=== PATIENT | female | born 1935 | race Caucasian/White ===

== ENCOUNTER → 2016-09-19 | Outpatient (CLI) | payer MEDICARE, OTHER | END | disposition home or self-care (01) | LOC: MW.CHOBGYN 13:16 | PROVIDERS: ATTEND Nurse Practitioner Women's Health | DX: R39.9 Unspecified symptoms and signs involving the genitourinary system (principal); N89.8 Other specified noninflammatory disorders of vagina; R10.32 Left lower quadrant pain; R39.198 Other difficulties with micturition | CPT/HCPCS: 87480; 87510; 87660; 99214 ==

== ENCOUNTER → 2016-10-05 | Outpatient (CLI) | payer MEDICARE, OTHER | LOC: MW.CHOBGYN 13:59 | PROVIDERS: ATTEND Nurse Practitioner Women's Health | DX: R39.9 Unspecified symptoms and signs involving the genitourinary system (principal); N39.0 Urinary tract infection, site not specified | CPT/HCPCS: 81001; G0463 ==

== ENCOUNTER 2016-10-11 19:47 | Emergency (ER) | payer MEDICARE, OTHER ==
[2016-10-11] MEDS ORDERED: Sodium Chloride 0.9% 10 ML Syringe FLUSH PRN (20:02)
[2016-10-11] MEDS ORDERED: Ketorolac 30 MG/ML SDV IVPUSH ONE (20:02)
[2016-10-11] MEDS ORDERED: Sodium Chloride 0.9% 2.5 ML Syringe FLUSH PRN (20:02)
--- NOTE | 2016-10-11 20:06 | EDM.PDOC ---
ED HPI GENERAL MEDICAL PROBLEM - General Chief Complaint: Abdominal Pain Stated Complaint: SHARP ABDOMINAL PAIN Time Seen by Provider: 10/11/16 19:51 - History of Present Illness INITIAL COMMENTS - FREE TEXT/NARRATIVE: HISTORY AND PHYSICAL: History of present illness: The patient is a 81-year-old female who follows her locally in our clinic and presents with a history of a UTI that was initially treated with Cipro and did not resolve and then was started on nitrofurantoin 5 days ago she is currently taking. The patient states she has had no urinary complaints currently but she is having left mid and lower abdominal pain that has been on and off for the last several weeks but worse tonight. According to the patient she normally has regular bowel movements and over the last few weeks she has had more issues with hard stools and irregular bowel movements. She denies any vomiting does not feel more gassy than usual but does feel more bloated. Over the last few weeks the pain has been intermittent crampy but tolerable and then it worsened tonight and she was concerned so she came here. She's not had a fever chills or flank pain no chest pain or shortness of breath and she's been eating and drinking normally. Her last colonoscopy was approximately 2 years ago which revealed some polyps but otherwise normal. The patient denies excessive caffeine use and has not taken any [id number]-boebhce medications for this discomfort or her regular bowel movements. Patient has a significant surgical history of a appendectomy and a paraesophageal hernia repair. Currently in the ED she says the pain is very mild. The pain does not radiate Review of systems: As per history of present illness and below otherwise all systems reviewed and negative. Past medical history: As per history of present illness and as reviewed below otherwise noncontributory. Surgical history: As per history of present illness and as reviewed below otherwise noncontributory. Social history: No reported history of drug or alcohol abuse. Family history: As per history of present illness and as reviewed below otherwise noncontributory. Physical exam: General: Well-developed well-nourished female who is nontoxic and moves easily in the ED and her vital signs have been reviewed by me. HEENT: Atraumatic, normocephalic, negative for conjunctival pallor or scleral icterus, mucous membranes moist, throat clear, neck supple, nontender, trachea midline. Lungs: Clear to auscultation, breath sounds equal bilaterally, chest nontender. Heart: S1S2, regular, negative for clicks, rubs, or JVD. Abdomen: Soft, nondistended, minimal tenderness on deep palpation to the right of the umbilicus and just inferiorly without rebound or guarding. There is no tympany on percussion and bowel sounds are normal active Negative for masses or hepatosplenomegaly. Negative for costovertebral tenderness. Pelvis: Stable nontender. 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: Deferred. Rectal: Deferred. Extremities: Atraumatic, negative for cords or calf pain. Neurovascular unremarkable. Neuro: Awake, alert, oriented. Cranial nerves II through XII unremarkable. Cerebellum unremarkable. Motor and sensory unremarkable throughout. Exam nonfocal. Diagnostics: CBC CMP lactic acid UA CT scan of the abdomen and pelvis Therapeutics: IV fluids Toradol I discussed with the patient and daughter at bedside all testing results and have advised them that I have added a urine culture as it looks like the patient still has a UTI despite the nitrofurantoin that she is almost completed. According to the patient now she has only 3 doses left. I've advised her to increase fiber in her diet and push hydration and I will change her antibiotics tonight and have advised that they call the clinic tomorrow and see if they send a urine culture on the specimen prior to treating her the second round. I've advised him on reasons to return to the ED and need for followup with primary care. Patient has also been advised of the left lower lobe lung nodule any for followup Impression: Left abdominal pain with persistent UTI stable Definitive disposition and diagnosis as appropriate pending reevaluation and review of above. abdominal Pain Score (Numeric/FACES): 4 - Related Data Allergies Allergy/AdvReac Type Severity Reaction Status Date / Time No Known Allergies Allergy Verified 10/11/16 20:03 Home Meds: Home Meds Calcium Carbonate/Vitamin D3 [Caltrate 600+D 1500 MG-400 Units] 1 tab PO BID # 60 tablet 11/25/13 [Rx] Past Medical History - Past Health History Medical/Surgical History: Denies Medical/Surgical History Social & Family History - Tobacco Use Smoking Status *Q: Never Smoker Years of Tobacco use: 1 Used Tobacco, but Quit: No Second Hand Smoke Exposure: No - Alcohol Use Days Per Week of Alcohol Use: 0 Number of Drinks Per Day: 0 Total Drinks Per Week: 0 - Recreational Drug Use Recreational Drug Use: No Drug Use in Last 12 Months: No ED ROS GENERAL - Review of Systems Review Of Systems: ROS reveals no pertinent complaints other than HPI. ED EXAM, GENERAL - Physical Exam Exam: See Below (See dictation) Course - Vital Signs Last Recorded V/S: Last Vital Signs Temp 37.1 C 10/11/16 20:01 Pulse 75 10/11/16 20:01 Resp 16 10/11/16 20:01 BP 130/91 H 10/11/16 20:01 Pulse Ox 97 10/11/16 20:01 - Orders/Labs/Meds Orders: Active Orders 24 hr Category Date Time Status Abdomen Pelvis w Cont [CT] Stat Exams 10/11/16 20:02 Taken CULTURE URINE [RM] Stat Lab 10/11/16 20:25 Received Sodium Chloride 0.9% [Normal Saline] 500 ml Med 10/11/16 20:15 Active IV STAT Sodium Chloride 0.9% [Saline Flush] Med 10/11/16 20:02 Active 10 ml FLUSH ASDIRECTED PRN Sodium Chloride 0.9% [Saline Flush] Med 10/11/16 20:02 Active 2.5 ml FLUSH ASDIRECTED PRN Saline Lock Insert [OM.PC] Stat Oth 10/11/16 20:01 Ordered Medication Orders Sodium Chloride (Normal Saline) 500 mls @ 999 mls/hr IV STAT CARLY Last Admin: 10/11/16 20:33 Dose: 999 mls/hr Sodium Chloride (Saline Flush) 10 ml FLUSH ASDIRECTED PRN PRN Reason: Keep Vein Open Sodium Chloride (Saline Flush) 2.5 ml FLUSH ASDIRECTED PRN PRN Reason: Keep Vein Open Labs: Laboratory Tests 10/11/16 10/11/16 10/11/16 Range/Units 20:19 20:19 20:19 WBC 7.51 (4.0-11.0) K/uL RBC 3.68 L (4.30-5.90) M/uL Hgb 12.1 (12.0-16.0) g/dL Hct 35.7 L (36.0-46.0) % MCV 97.0 (80.0-98.0) fL MCH 32.9 H (27.0-32.0) pg MCHC 33.9 (31.0-37.0) g/dL RDW Std Deviation 49.9 (28.0-62.0) fl RDW Coeff of Marimar 14 (11.0-15.0) % Plt Count 367 (150-400) K/uL MPV 10.20 (7.40-12.00) fL Neut % (Auto) 56.8 (48.0-80.0) % Lymph % (Auto) 34.4 (16.0-40.0) % Pine % (Auto) 7.7 (0.0-15.0) % Eos % (Auto) 0.8 (0.0-7.0) % Baso % (Auto) 0.3 (0.0-1.5) % Neut # 4.3 (1.4-5.7) K/uL Lymph # 2.6 H (0.6-2.4) K/uL Pine # 0.6 (0.0-0.8) K/uL Eos # 0.1 (0.0-0.7) K/uL Baso # 0.0 (0.0-0.1) K/uL Nucleated RBC % 0.0 /100WBC Nucleated RBCs # 0 K/uL Lactate 1.7 (0.20-2.00) mmol/L Sodium 133 L (136-146) mmol/L Potassium 3.4 L (3.5-5.1) mmol/L Chloride 99 (98-110) mmol/L Carbon Dioxide 23 (21-31) mmol/L BUN 9 (6.0-23.0) mg/dL Creatinine 0.7 (0.6-1.5) mg/dL Est Cr Clr Drug Dosing 56.27 mL/min Estimated GFR (MDRD) > 60.0 ml/min Glucose 130 H (60-110) mg/dL Calcium 9.4 (8.8-10.8) mg/dL Total Bilirubin 0.6 (0.1-1.5) mg/dL AST 19 (5-40) IU/L ALT 16 (8-54) IU/L Alkaline Phosphatase 50 (40-150) Total Protein 6.6 (6.0-8.0) g/dL Albumin 4.0 (3.4-4.8) g/dL Globulin 2.6 (2.0-3.5) g/dL Albumin/Globulin Ratio 1.5 (1.3-2.8) Urine Color Urine Appearance Urine pH (5.0-8.0) Ur Specific [place] (1.001-1.035) Urine Protein (NEGATIVE) mg/dL Urine Glucose (UA) (NEGATIVE) mg/dL Urine Ketones (NEGATIVE) mg/dL Urine Occult Blood (NEGATIVE) Urine Nitrite (NEGATIVE) Urine Bilirubin (NEGATIVE) Urine Urobilinogen (<2.0) EU/dL Ur Leukocyte Esterase (NEGATIVE) Urine RBC (0-2/HPF) Urine WBC (0-5/HPF) Ur Epithelial Cells (NONE-FEW) Urine Bacteria (NEGATIVE) 10/11/16 Range/Units 20:25 WBC (4.0-11.0) K/uL RBC (4.30-5.90) M/uL Hgb (12.0-16.0) g/dL Hct (36.0-46.0) % MCV (80.0-98.0) fL MCH (27.0-32.0) pg MCHC (31.0-37.0) g/dL RDW Std Deviation (28.0-62.0) fl RDW Coeff of Marimar (11.0-15.0) % Plt Count (150-400) K/uL MPV (7.40-12.00) fL Neut % (Auto) (48.0-80.0) % Lymph % (Auto) (16.0-40.0) % Pine % (Auto) (0.0-15.0) % Eos % (Auto) (0.0-7.0) % Baso % (Auto) (0.0-1.5) % Neut # (1.4-5.7) K/uL Lymph # (0.6-2.4) K/uL Pine # (0.0-0.8) K/uL Eos # (0.0-0.7) K/uL Baso # (0.0-0.1) K/uL Nucleated RBC % /100WBC Nucleated RBCs # K/uL Lactate (0.20-2.00) mmol/L Sodium (136-146) mmol/L Potassium (3.5-5.1) mmol/L Chloride (98-110) mmol/L Carbon Dioxide (21-31) mmol/L BUN (6.0-23.0) mg/dL Creatinine (0.6-1.5) mg/dL Est Cr Clr Drug Dosing mL/min Estimated GFR (MDRD) ml/min Glucose (60-110) mg/dL Calcium (8.8-10.8) mg/dL Total Bilirubin (0.1-1.5) mg/dL AST (5-40) IU/L ALT (8-54) IU/L Alkaline Phosphatase (40-150) Total Protein (6.0-8.0) g/dL Albumin (3.4-4.8) g/dL Globulin (2.0-3.5) g/dL Albumin/Globulin Ratio (1.3-2.8) Urine Color YELLOW Urine Appearance SLT CLOUDY Urine pH 5.5 (5.0-8.0) Ur Specific [place] <= 1.005 (1.001-1.035) Urine Protein NEGATIVE (NEGATIVE) mg/dL Urine Glucose (UA) NEGATIVE (NEGATIVE) mg/dL Urine Ketones TRACE H (NEGATIVE) mg/dL Urine Occult Blood SMALL H (NEGATIVE) Urine Nitrite NEGATIVE (NEGATIVE) Urine Bilirubin NEGATIVE (NEGATIVE) Urine Urobilinogen 0.2 (<2.0) EU/dL Ur Leukocyte Esterase LARGE (NEGATIVE) Urine RBC 0-2 (0-2/HPF) Urine WBC 3-6 (0-5/HPF) Ur Epithelial Cells FEW (NONE-FEW) Urine Bacteria 1+ H (NEGATIVE) Meds: Medications Generic Name Dose Route Start Last Admin Trade Name Freq PRN Reason Stop Dose Admin Sodium Chloride 500 mls @ 999 mls/hr 10/11/16 20:15 10/11/16 20:33 Normal Saline IV 999 mls/hr STAT CARLY Administration Sodium Chloride 10 ml 10/11/16 20:02 Saline Flush FLUSH ASDIRECTED PRN Keep Vein Open Sodium Chloride 2.5 ml 10/11/16 20:02 Saline Flush FLUSH ASDIRECTED PRN Keep Vein Open Discontinued Medications Generic Name Dose Route Start Last Admin Trade Name Freq PRN Reason Stop Dose Admin Iopamidol 100 ml 10/11/16 21:17 10/11/16 21:18 Isovue Multipack-370 (76%) IVPUSH 10/11/16 21:18 100 ml ONETIME STA Administration Ketorolac Tromethamine 15 mg 10/11/16 20:02 10/11/16 20:33 Toradol IVPUSH 10/11/16 20:03 15 mg ONETIME ONE Administration Departure - Departure Time of Disposition: 22:00 Disposition: Home, Self-Care 01 Condition: good Clinical Impression: Abdominal pain Qualifiers: Abdominal location: left lower quadrant Qualified Code(s): R10.32 - Left lower quadrant pain UTI (urinary tract infection) Qualifiers: Urinary tract infection type: site unspecified Hematuria presence: without hematuria Qualified Code(s): N39.0 - Urinary tract infection, site not specified Referrals: PCP,None [Primary Care Provider] - Forms: ED Department Discharge Additional Instructions: The following information is given to patients seen in the emergency department who are being discharged to home. This information is to outline your options for follow-up care. We provide all patients seen in our emergency department with a follow-up referral. The need for follow-up, as well as the timing and circumstances, are variable depending upon the specifics of your emergency department visit. If you don't have a primary care physician on staff, we will provide you with a referral. We always advise you to contact your personal physician following an emergency department visit to inform them of the circumstance of the visit and for follow-up with them and/or the need for any referrals to a consulting specialist. The emergency department will also refer you to a specialist when appropriate. This referral assures that you have the opportunity for followup care with a specialist. All of these measure are taken in an effort to provide you with optimal care, which includes your followup. Under all circumstances we always encourage you to contact your private physician who remains a resource for coordinating your care. When calling for followup care, please make the office aware that this follow-up is from your recent emergency room visit. If for any reason you are refused follow-up, please contact the [facility] emergency department at and ask to speak to the emergency department charge nurse. [facility] Primary care- Internal Medicine and Family [address] [address] Please contact the clinic to discuss if they have sent a urine culture on your urine in the past and if not please fill the prescription you have been given tonight and start the antibiotic. Please push fiber in her diet and hydration and return to ER as needed and as discussed. Please followup in the clinic as well. - My Orders Last 24 Hours: My Active Orders 10/11/16 20:01 Saline Lock Insert [OM.PC] Stat 10/11/16 20:02 Abdomen Pelvis w Cont [CT] Stat Sodium Chloride 0.9% [Saline Flush] 10 ml FLUSH ASDIRECTED PRN Sodium Chloride 0.9% [Saline Flush] 2.5 ml FLUSH ASDIRECTED PRN 10/11/16 20:15 Sodium Chloride 0.9% [Normal Saline] 500 ml IV STAT 10/11/16 20:25 CULTURE URINE [RM] Stat - Assessment/Plan Last 24 Hours: My Active Orders 10/11/16 20:01 Saline Lock Insert [OM.PC] Stat 10/11/16 20:02 Abdomen Pelvis w Cont [CT] Stat Sodium Chloride 0.9% [Saline Flush] 10 ml FLUSH ASDIRECTED PRN Sodium Chloride 0.9% [Saline Flush] 2.5 ml FLUSH ASDIRECTED PRN 10/11/16 20:15 Sodium Chloride 0.9% [Normal Saline] 500 ml IV STAT 10/11/16 20:25 CULTURE URINE [RM] Stat
[2016-10-11] MEDS ORDERED: Sodium Chloride 0.9% 500 ML IV SCH (20:15)
[2016-10-11 20:45] LABS: CHLORIDE,CL 99 mmol/L (98-110); SODIUM,NA 133 mmol/L (136-146)
[2016-10-11] MEDS ORDERED: Iopamidol 755 MG/ML 500 ML Multipack Bottle IVPUSH STA (21:17)
[2016-10-11 23:42] VITALS: BP 125/58
--- NOTE | 2016-10-12 18:35 | CT ---
EXAM DATE: 10/11/16 PATIENT'S AGE: 81 Patient: KADE MANCUSO Facility: [place], [place] Site . Site : [id number] Study: CT Abdomen/Pelvis [id number]/15/2017 9:17:40 PM Ordering Physician: Char Moore Final Report: INDICATION: Abdominal pain TECHNIQUE: CT abdomen and pelvis acquired with IV contrast. COMPARISON: June 08, 2014 FINDINGS: Lower chest: Cardiomegaly. Small hiatal hernia. Stable 0.4 cm left lower lobe subpleural nodule, best seen on image 19 series 601. Liver: Subcentimeter hypodensity within the right hepatic lobe, too small to accurately characterize. Spleen: Unremarkable. Pancreas: Unremarkable. Gallbladder and bile ducts: Status post cholecystectomy. Adrenal glands: Stable thickening of the left adrenal gland. Kidneys: Simple cyst lower pole left kidney. GI tract: Colonic diverticulosis. The appendix is not visualized but no inflammatory changes are seen in the right lower quadrant. Vascular structures: Moderate atherosclerotic changes. Lymph nodes: Unremarkable. Miscellaneous: Unremarkable. No free air or significant free fluid. Pelvic Organs: Unremarkable. Bones: Left hip arthroplasty. Remote fractures of the left inferior and superior pubic rami. No acute fracture identified. IMPRESSION: 1. No acute intra-abdominal process identified. 2. Small hiatal hernia. 3. Colonic diverticulosis. 4. Status post cholecystectomy and a left hip arthroplasty. 5. Stable thickening of the left adrenal gland. 6. Cardiomegaly. 7. Left lower lobe subpleural nodule. Followup per Fleischner society guidelines recommended, as listed below. Fleischner Society Guidelines: Nodule Size (mm)*: Less than or equal to 4 Low Risk Patient1: No follow-up needed3 High Risk Patient2: Follow-up CT at 12 months; if unchanged, no further follow- up4 Nodule Size (mm)*: Greater than 4 - 6 Low Risk Patient1: Follow-up CT at 12 months; if unchanged, no further follow- up4 High Risk Patient2: Initial follow-up CT at 6-12 months then at 18-24 months if no change4 Nodule Size (mm)*: Greater than 6 - 8 Low Risk Patient1: Initial follow-up CT at 6-12 months then at 18-24 months if no change High Risk Patient2: Initial CT at 3-6 months then at 9-12 and 24 months if no change Nodule Size (mm)*: Greater than 8 Low Risk Patient1: Follow-up CT at around 3, 9 and 24 months, dynamic contrast- enhanced CT, PET and/or biopsy High Risk Patient2: Same as for low risk patient 4 Note: Newly detected indeterminate nodule in persons 35 years of age or older. * Average length and width. 1 Minimal or absent history of smoking and of other known risk factors. 2 History of smoking or of other known risk factors. 3 The risk of malignancy in this category (Less than 1%) is substantially less than that in a baseline CT scan of an asymptomatic smoker. 4 Non-solid (ground-glass) or partly solid nodules may require longer follow-up to exclude indolent adenocarcinoma. Dictated by Vashti Barragan MD @ Oct 11 2016 9:35PM (Electronic Signature) Report Signed by Proxy and Original Signed Document filed in the Medical Record. [facility]
== END 2016-10-11 22:21 | disposition home or self-care (01) ==
LOC: MW.ED 19:47
DX: N39.0 Urinary tract infection, site not specified (principal)
CPT/HCPCS: 36415; 74177; 80053; 81001; 83605; 85025; 87086; 99284; J1885; J7040; Q9967; 96374

== ENCOUNTER → 2016-10-16 | Outpatient (CLI) | payer MEDICARE, OTHER | END | disposition home or self-care (01) | LOC: MW.CHFP 12:51 | PROVIDERS: ATTEND Emergency Medicine | DX: N39.0 Urinary tract infection, site not specified (principal) | CPT/HCPCS: 81001; 87086 ==

== ENCOUNTER 2016-10-21 13:05 | Emergency (ER) | payer MEDICARE, OTHER ==
--- NOTE | 2016-10-21 14:41 | EDM.PDOC ---
<Nadja Valiente - Last Filed: 10/21/16 14:36> ED HPI GI/ABDOMINAL - General Chief Complaint: Gastrointestinal Problem Stated Complaint: POSSIBLE DIARRHEA Time Seen by Provider: 10/21/16 14:01 Source of Information: Reports: Patient History Limitations: Reports: No limitations - History of Present Illness INITIAL COMMENTS - FREE TEXT/NARRATIVE: Loli is a 81 year old female who presents to the ED today with complaints of diarrhea x3-4 days. She also voices lack of appetite. Patient denies nausea or vomiting, denies fever/chills. Patient voices she has been on antibiotics therapy for the last 3 weeks with 3 different antibiotic therapy for UTI (Cipro , Nitrofuratin and Cefuroxim), but states she stopped them on 10/19/16, and UTI is resolved according to her PCP. She denies blood in her stool. Tried OTC immodium 2 tabs on Sunday one time without resolution and tried Pepto- bismuth on which helped "settle her stomach some" Patient voices between 4-10 episodes of loose runny stool that is more frequent in the morning and gets better as day progresses. On first night she was up in the middle of the night to have some episodes of loose stools, she was able to sleep through last night without having an episode of diarrhea. Timing/Duration: Reports: Day(s): (3-4days of diarrhea) Associated Symptoms (-Female): Reports: diarrhea. Denies: bloody stools, fever/chills, nausea/vomiting - Related Data Allergies/ADRs: Allergies Allergy/AdvReac Type Severity Reaction Status Date / Time No Known Allergies Allergy Verified 10/21/16 13:21 Home Meds: Home Meds Calcium Carbonate/Vitamin D3 [Caltrate 600+D 1500 MG-400 Units] 1 tab PO BID # 60 tablet 11/25/13 [Rx] Past Medical History - Past Health History Medical/Surgical History: Denies Medical/Surgical History HEENT History: Reports: Cataract, Impaired vision Cardiovascular History: Reports: None Respiratory History: Reports: None Gastrointestinal History: Reports: None 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 History: Reports: None 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: Neurological History: Reports: None Psychiatric History: Reports: None Endocrine/Metabolic History: Reports: None Hematologic History: Reports: None Immunologic History: Reports: None Oncologic (Cancer) History: Reports: None - Infectious Disease History Infectious Disease History: Reports: Chicken pox, Measles, Mumps - Past Surgical History Head Surgeries/Procedures: Reports: None HEENT Surgical History: Reports: Cataract surgery GI Surgical History: Reports: Appendectomy, Other (see below) Other GI Surgeries/Procedures: Esophageal hernal Female Surgical History: Reports: section Musculoskeletal Surgical History: Reports: Arthroscopic procedure, Hip replacement Other Musculoskeletal Surgeries/Procedures:: femur fx Social & Family History - Family History Family Medical History: Noncontributory - Tobacco Use Smoking Status *Q: Never Smoker Years of Tobacco use: 1 Used Tobacco, but Quit: No Second Hand Smoke Exposure: No - Caffeine Use Caffeine Use: Reports: Tea - Alcohol Use Days Per Week of Alcohol Use: 0 Number of Drinks Per Day: 0 Total Drinks Per Week: 0 - Recreational Drug Use Recreational Drug Use: No Drug Use in Last 12 Months: No ED ROS GENERAL - Review of Systems Review Of Systems: ROS reveals no pertinent complaints other than HPI. ED EXAM, GI/ABD - Physical Exam Exam: See Below Text/Narrative:: 81 year old female in no acute distress, and answers questions appropriately Exam Limited By: No limitations General Appearance: alert, WD/WN, no apparent distress Ears: normal external exam Nose: normal inspection Throat/Mouth: Normal inspection, Normal lips, Normal teeth, Normal gums, Normal oropharynx, Normal voice, No airway compromise Head: atraumatic, normocephalic Neck: normal inspection, supple, non-tender, full range of motion Respiratory/Chest: no respiratory distress, lungs clear, normal breath sounds, no accessory muscle use, chest non-tender Cardiovascular: regular rate, rhythm GI/Abdominal: normal bowel sounds, soft, non tender, no organomegaly, no distention, no mass (Female) Exam: Deferred Rectal (Female) Exam: Deferred Back Exam: normal inspection Extremities: normal inspection, normal capillary refill Neurological: alert, oriented, CN II-XII intact, normal cognition, normal gait, normal reflexes, no motor/sensory deficits Psychiatric: normal affect, normal mood Skin Exam: Warm, Dry, Intact, Normal color, No rash Lymphatic: no adenopathy Course - Vital Signs Last Recorded V/S: Last Vital Signs Temp 37.2 C 10/21/16 13:21 Pulse 79 10/21/16 13:21 Resp 18 10/21/16 13:21 BP 165/69 H 10/21/16 13:21 Pulse Ox 98 10/21/16 13:21 - Orders/Labs/Meds Orders: Active Orders 24 hr Category Date Time Status CULTURE STOOL + CAMPY+SHIGATOX [RM] Stat Lab 10/21/16 16:00 Results Labs: Laboratory Tests 10/21/16 10/21/16 Range/Units 15:04 15:04 WBC 13.88 H (4.0-11.0) K/uL RBC 3.78 L (4.30-5.90) M/uL Hgb 12.6 (12.0-16.0) g/dL Hct 36.7 (36.0-46.0) % MCV 97.1 (80.0-98.0) fL MCH 33.3 H (27.0-32.0) pg MCHC 34.3 (31.0-37.0) g/dL RDW Std Deviation 50.7 (28.0-62.0) fl RDW Coeff of Marimar 14 (11.0-15.0) % Plt Count 373 (150-400) K/uL MPV 9.80 (7.40-12.00) fL Neut % (Auto) 84.7 H (48.0-80.0) % Lymph % (Auto) 8.1 L (16.0-40.0) % Colbert % (Auto) 7.0 (0.0-15.0) % Eos % (Auto) 0.1 (0.0-7.0) % Baso % (Auto) 0.1 (0.0-1.5) % Neut # (Auto) 11.8 H (1.4-5.7) K/uL Lymph # (Auto) 1.1 (0.6-2.4) K/uL Colbert # (Auto) 1.0 H (0.0-0.8) K/uL Eos # (Auto) 0.0 (0.0-0.7) K/uL Baso # (Auto) 0.0 (0.0-0.1) K/uL Nucleated RBC % 0.0 /100WBC Nucleated RBCs # 0 K/uL Sodium 131 L (136-146) mmol/L Potassium 3.1 L (3.5-5.1) mmol/L Chloride 98 (98-110) mmol/L Carbon Dioxide 18 L (21-31) mmol/L BUN 7 (6.0-23.0) mg/dL Creatinine 0.7 (0.6-1.5) mg/dL Est Cr Clr Drug Dosing 56.27 mL/min Estimated GFR (MDRD) > 60.0 ml/min Glucose 109 (60-110) mg/dL Calcium 9.3 (8.8-10.8) mg/dL Total Bilirubin 0.9 (0.1-1.5) mg/dL AST 19 (5-40) IU/L ALT 14 (8-54) IU/L Alkaline Phosphatase 58 (40-150) Total Protein 6.5 (6.0-8.0) g/dL Albumin 3.7 (3.4-4.8) g/dL Globulin 2.8 (2.0-3.5) g/dL Albumin/Globulin Ratio 1.3 (1.3-2.8) Meds: Medications Discontinued Medications Generic Name Dose Route Start Last Admin Trade Name Freq PRN Reason Stop Dose Admin Potassium Chloride 40 meq 10/21/16 16:01 10/21/16 16:06 Klor-Con M20 PO 10/21/16 16:02 40 meq ONETIME ONE Administration Departure - Departure Disposition: Home, Self-Care 01 Clinical Impression: C. difficile diarrhea Forms: ED Department Discharge Additional Instructions: The following information is given to patients seen in the emergency department who are being discharged to home. This information is to outline your options for follow-up care. We provide all patients seen in our emergency department with a follow-up referral. The need for follow-up, as well as the timing and circumstances, are variable depending upon the specifics of your emergency department visit. If you don't have a primary care physician on staff, we will provide you with a referral. We always advise you to contact your personal physician following an emergency department visit to inform them of the circumstance of the visit and for follow-up with them and/or the need for any referrals to a consulting specialist. The emergency department will also refer you to a specialist when appropriate. This referral assures that you have the opportunity for followup care with a specialist. All of these measure are taken in an effort to provide you with optimal care, which includes your followup. Under all circumstances we always encourage you to contact your private physician who remains a resource for coordinating your care. When calling for followup care, please make the office aware that this follow-up is from your recent emergency room visit. If for any reason you are refused follow-up, please contact the [facility] emergency department at and ask to speak to the emergency department charge nurse. [facility] Primary care- Internal Medicine and Family [address] [address] Please push potassium rich foods such as bananas whole grains and vegetables. Take your new prescription Flagyl as directed and please call and followup with your provider Dr. Garcia prior to finishing her prescription so that you can have your stool reevaluated for further medication and treatment. Please return to ER as needed and as discussed. - My Orders Last 24 Hours: My Active Orders 10/21/16 16:00 CULTURE STOOL + CAMPY+SHIGATOX [RM] Stat - Assessment/Plan Last 24 Hours: My Active Orders 10/21/16 16:00 CULTURE STOOL + CAMPY+SHIGATOX [RM] Stat <Teresa Pardo - Last Filed: 10/21/16 16:46> ED HPI GI/ABDOMINAL - History of Present Illness INITIAL COMMENTS - FREE TEXT/NARRATIVE: This is Dr. Pardo dictating an addendum note as a supervising physician on this case. I saw this patient on October 11 for abdominal pain and she was evaluated with labs and a CAT scan. That days results and notes were reviewed by me. On that visit her testing results were relatively negative except a positive UA and she was on nitrofurantoin at that time and had been on Cipro previously. I switched her to Keflex and send a urine culture and those test results we followed up by her primary Dr. Garcia on October 16 . At that time he buys her to stop the antibiotics. The next day she started having diarrhea as described above which is not black or bloody. Patient denies any abdominal pain currently and has had no nausea vomiting fevers or chills but has not had much of an appetite and has not been eating very much as a result of that. Patient has taken no [id number] medications. About personal of valuation of her she looks better overall clinically and has no tenderness on palpation of the abdomen and moist oral mucosa. Because of her age we will repeat the CBC and CMP and I advised a bruise like to get a stool sample for C. difficile and culture for Campylobacter and Shigella. She states she may not be able to give a sample and if she is unable to during the course of this ER visit we will give her the tools and prescription to collect at home and bring it to the lab for testing to be followed by her primary. The patient states that her urination has improved. Patient is comfortable with our care plan is in place. 1600: Potassium is 3.1 and it was 3.4 every day when I saw her so we will give her 40 mEq of KCl. I will advise her to increase whole grains, leafy vegetables and bananas in her diet. The patient was able to produce a stool sample here in the ED so we are currently awaiting the results for C. difficile and quick look culture She was informed of her C. difficile + testing and will be given Flagyl 250 mg by mouth 4 times a day for 10 days. I've advised her that she does need to followup with Dr. Garcia prior to finishing the prescription to [facility] the test is negative or positive because if it remains positive she will need more treatment. She is aware of this plan. Impression: C Diff + Diarrhea Course - Orders/Labs/Meds Labs: Laboratory Tests 10/21/16 10/21/16 Range/Units 15:04 15:04 WBC 13.88 H (4.0-11.0) K/uL RBC 3.78 L (4.30-5.90) M/uL Hgb 12.6 (12.0-16.0) g/dL Hct 36.7 (36.0-46.0) % MCV 97.1 (80.0-98.0) fL MCH 33.3 H (27.0-32.0) pg MCHC 34.3 (31.0-37.0) g/dL RDW Std Deviation 50.7 (28.0-62.0) fl RDW Coeff of Marimar 14 (11.0-15.0) % Plt Count 373 (150-400) K/uL MPV 9.80 (7.40-12.00) fL Neut % (Auto) 84.7 H (48.0-80.0) % Lymph % (Auto) 8.1 L (16.0-40.0) % Colbert % (Auto) 7.0 (0.0-15.0) % Eos % (Auto) 0.1 (0.0-7.0) % Baso % (Auto) 0.1 (0.0-1.5) % Neut # (Auto) 11.8 H (1.4-5.7) K/uL Lymph # (Auto) 1.1 (0.6-2.4) K/uL Colbert # (Auto) 1.0 H (0.0-0.8) K/uL Eos # (Auto) 0.0 (0.0-0.7) K/uL Baso # (Auto) 0.0 (0.0-0.1) K/uL Nucleated RBC % 0.0 /100WBC Nucleated RBCs # 0 K/uL Sodium 131 L (136-146) mmol/L Potassium 3.1 L (3.5-5.1) mmol/L Chloride 98 (98-110) mmol/L Carbon Dioxide 18 L (21-31) mmol/L BUN 7 (6.0-23.0) mg/dL Creatinine 0.7 (0.6-1.5) mg/dL Est Cr Clr Drug Dosing 56.27 mL/min Estimated GFR (MDRD) > 60.0 ml/min Glucose 109 (60-110) mg/dL Calcium 9.3 (8.8-10.8) mg/dL Total Bilirubin 0.9 (0.1-1.5) mg/dL AST 19 (5-40) IU/L ALT 14 (8-54) IU/L Alkaline Phosphatase 58 (40-150) Total Protein 6.5 (6.0-8.0) g/dL Albumin 3.7 (3.4-4.8) g/dL Globulin 2.8 (2.0-3.5) g/dL Albumin/Globulin Ratio 1.3 (1.3-2.8) Meds: Medications Discontinued Medications Generic Name Dose Route Start Last Admin Trade Name Freq PRN Reason Stop Dose Admin Potassium Chloride 40 meq 10/21/16 16:01 10/21/16 16:06 Klor-Con M20 PO 10/21/16 16:02 40 meq ONETIME ONE Administration Departure - Departure Time of Disposition: 16:45 Condition: good
[2016-10-21 15:46] LABS: CHLORIDE,CL 98 mmol/L (98-110); SODIUM,NA 131 mmol/L (136-146)
[2016-10-21] MEDS ORDERED: Potassium Chloride 20 MEQ Tab.ER PO ONE (16:01)
[2016-10-21 17:12] VITALS: BP 150/78
== END 2016-10-21 17:10 | disposition home or self-care (01) ==
LOC: MW.ED 13:05
DX: A04.7 Enterocolitis due to Clostridium difficile (principal); Z98.49 Cataract extraction status, unspecified eye; Z96.649 Presence of unspecified artificial hip joint; Z98.890 Other specified postprocedural states; Z90.49 Acquired absence of other specified parts of digestive tract
CPT/HCPCS: 36415; 80053; 85025; 87046; 87324; 87899; 99284; A9270; 99283

== ENCOUNTER → 2016-11-02 | Outpatient (CLI) | payer MEDICARE, OTHER | LOC: MW.CHFP 08:00 | PROVIDERS: ATTEND Emergency Medicine | DX: A04.7 Enterocolitis due to Clostridium difficile (principal); Z23 Encounter for immunization; M81.0 Age-related osteoporosis without current pathological fracture | CPT/HCPCS: 90732; G0009; G0463 ==

== ENCOUNTER 2016-11-11 14:15 | Emergency (ER) | payer MEDICARE, OTHER ==
--- NOTE | 2016-11-11 15:16 | EDM.PDOC ---
ED HPI Skin/Rash - General Chief Complaint: Neurological Problem Stated Complaint: SHINGLES Time Seen by Provider: 11/11/16 14:18 Source: Reports: Patient History Limitations: Reports: No limitations - History of Present Illness INITIAL COMMENTS - FREE TEXT/NARRATIVE: History of present illness: [] She had shingles approximately 10 years ago and couple days ago patient started feeling a burning tingling sensation on her left hip where she had shingles prior. Patient now presents with a faint rash is concerned that the shingles has returned. She denies any fevers, chills, nausea or vomiting Review of systems: As per history of present illness and below otherwise all systems reviewed and negative. Past medical history: As per history of present illness and as reviewed below otherwise noncontributory. Surgical history: As per history of present illness and as reviewed below otherwise noncontributory. Social history: No reported history of drug or alcohol abuse. Family history: As per history of present illness and as reviewed below otherwise noncontributory. Physical exam: General: Well developed, well nourished in NAD HEENT: Atraumatic, normocephalic, pupils reactive, negative for conjunctival pallor or scleral icterus, mucous membranes moist, throat clear, neck supple, nontender, trachea midline. Lungs: Clear to auscultation, breath sounds equal bilaterally, chest nontender. Heart: S1S2, regular, negative for clicks, rubs, or JVD. Abdomen: Soft, nondistended, nontender. Negative for masses or hepatosplenomegaly. Negative for costovertebral tenderness. Pelvis: Stable nontender. Skin: Faint raised rash over the left posterior lateral hip. There is no pustules or weeping lesions at this time. No Signs of cellulitis. 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: Deferred. Rectal: Deferred. Extremities: Atraumatic, negative for cords or calf pain. Neurovascular unremarkable. Neuro: Awake, alert, oriented. Cranial nerves II through XII unremarkable. Cerebellum unremarkable. Motor and sensory unremarkable throughout. Exam nonfocal. Diagnostics: [] Therapeutics: [] Impression: [] Shingles left hip Plan: []Acyclovir 5 times a day for 10 days Definitive disposition and diagnosis as appropriate pending reevaluation and review of above. 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: Neurological History: Reports: None Psychiatric History: Reports: None Endocrine/Metabolic History: Reports: None Hematologic History: Reports: None Immunologic History: Reports: None Oncologic (Cancer) History: Reports: None - Infectious Disease History Infectious Disease History: Reports: Chicken pox, Measles, Mumps - Past Surgical History Head Surgeries/Procedures: Reports: None HEENT Surgical History: Reports: Cataract surgery GI Surgical History: Reports: Appendectomy, Other (see below) Other GI Surgeries/Procedures: Esophageal hernal Female Surgical History: Reports: section Musculoskeletal Surgical History: Reports: Arthroscopic procedure, Hip replacement Other Musculoskeletal Surgeries/Procedures:: femur fx Social & Family History - Family History Family Medical History: Noncontributory - Tobacco Use Smoking Status *Q: Never Smoker Years of Tobacco use: 1 Used Tobacco, but Quit: No Second Hand Smoke Exposure: No - Caffeine Use Caffeine Use: Reports: Tea - Alcohol Use Days Per Week of Alcohol Use: 0 Number of Drinks Per Day: 0 Total Drinks Per Week: 0 - Recreational Drug Use Recreational Drug Use: No Drug Use in Last 12 Months: No ED ROS GENERAL - Review of Systems Review Of Systems: See Below ([facility]) ED EXAM, SKIN/RASH Exam: See Below (See history of present illness) Departure - Departure Time of Disposition: 15:14 Disposition: Home, Self-Care 01 Condition: good Clinical Impression: Shingles Qualifiers: Herpes zoster complications: without complications Qualified Code(s): B02.9 - Zoster without complications Prescriptions: Acyclovir 800 mg PO 5XDAY #50 tablet Forms: ED Department Discharge Additional Instructions: The following information is given to patients seen in the emergency department who are being discharged to home. This information is to outline your options for follow-up care. We provide all patients seen in our emergency department with a follow-up referral. The need for follow-up, as well as the timing and circumstances, are variable depending upon the specifics of your emergency department visit. If you don't have a primary care physician on staff, we will provide you with a referral. We always advise you to contact your personal physician following an emergency department visit to inform them of the circumstance of the visit and for follow-up with them and/or the need for any referrals to a consulting specialist. The emergency department will also refer you to a specialist when appropriate. This referral assures that you have the opportunity for follow-up care with a specialist. All of these measure are taken in an effort to provide you with optimal care, which includes your follow-up. Under all circumstances we always encourage you to contact your private physician who remains a resource for coordinating your care. When calling for follow-up care, please make the office aware that this follow-up is from your recent emergency room visit. If for any reason you are refused follow-up, please contact the [facility] Emergency Department at and asked to speak to the emergency department charge nurse. Acyclovir 800 mg 5 times a day, Tylenol for pain, return if any symptoms worsen , followup with your PMD [facility] [address] [place] [id number]
[2016-11-11 15:33] VITALS: BP 141/68
== END 2016-11-11 15:30 | disposition home or self-care (01) ==
LOC: MW.ED 14:15
DX: B02.9 Zoster without complications (principal); Z96.649 Presence of unspecified artificial hip joint; Z90.49 Acquired absence of other specified parts of digestive tract; Z98.49 Cataract extraction status, unspecified eye; Z98.890 Other specified postprocedural states
CPT/HCPCS: 99282; 99283

== ENCOUNTER → 2016-11-14 | Outpatient (CLI) | payer MEDICARE, OTHER | LOC: MW.CHFP 08:00 | PROVIDERS: ATTEND Emergency Medicine | DX: B02.9 Zoster without complications (principal); B01.9 Varicella without complication; R00.2 Palpitations; R03.0 Elevated blood-pressure reading, without diagnosis of hypertension | CPT/HCPCS: G0463 ==

== ENCOUNTER → 2016-11-17 | Outpatient (CLI) | payer MEDICARE, OTHER | LOC: MW.CHFP 13:41 | PROVIDERS: ATTEND Physician Assistant | DX: R35.0 Frequency of micturition (principal); B37.9 Candidiasis, unspecified | CPT/HCPCS: 81001; 87086; 87480; 87510; 87660; 99214 ==

== ENCOUNTER → 2016-11-27 | Outpatient (CLI) | payer MEDICARE, OTHER | LOC: MW.CHUR 13:11 | PROVIDERS: ATTEND Urology | DX: R35.0 Frequency of micturition (principal); R39.198 Other difficulties with micturition; N39.0 Urinary tract infection, site not specified; M81.0 Age-related osteoporosis without current pathological fracture | CPT/HCPCS: 96372; 99202; J0897 ==

== ENCOUNTER 2017-03-29 22:04 | Observation (INO) | payer MEDICARE, OTHER ==
--- NOTE | 2017-03-29 22:39 | EDM.PDOC ---
ED HPI GENERAL MEDICAL PROBLEM - General Chief Complaint: Cardiovascular Problem Stated Complaint: DIZZY Time Seen by Provider: 03/29/17 22:38 Source of Information: Reports: Patient - History of Present Illness INITIAL COMMENTS - FREE TEXT/NARRATIVE: HISTORY AND PHYSICAL: History of present illness: []Patient presents from [facility] by private vehicle Family history is with her they brought her and as she has become dizzy tonight no fever nausea vomiting chills sweats no chest pain shortness breath headache or bowel or urine symptoms she does have some palpitation Denies chronic illness disease her medications should believe she may have had a diagnosis of A. fib in the past but has not received any treatment did not note this is intermittent or has been chronic and untreated Review of systems: As per history of present illness and below otherwise all systems reviewed and negative. Past medical history: As per history of present illness and as reviewed below otherwise noncontributory. Surgical history: As per history of present illness and as reviewed below otherwise noncontributory. Social history: No reported history of drug or alcohol abuse. Family history: As per history of present illness and as reviewed below otherwise noncontributory. Physical exam: HEENT: Atraumatic, normocephalic, pupils reactive, negative for conjunctival pallor or scleral icterus, mucous membranes moist, throat clear, neck supple, nontender, trachea midline. Lungs: Clear to auscultation, breath sounds equal bilaterally, chest nontender. Heart: S1S2, regular, negative for clicks, rubs, or JVD. Abdomen: Soft, nondistended, nontender. Negative for masses or hepatosplenomegaly. Negative for costovertebral tenderness. Pelvis: Stable nontender. 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: Deferred. Rectal: Deferred. Extremities: Atraumatic, negative for cords or calf pain. Neurovascular unremarkable. Neuro: Awake, alert, oriented. Cranial nerves II through XII unremarkable. Cerebellum unremarkable. Motor and sensory unremarkable throughout. Exam nonfocal. Diagnostics: []Lab as below EKG Chest 1 view Therapeutics: []Normal saline 1 25 mL per hour Discussed Lovenox with Dr. Lopez he would like to see the patient prior to starting the Lovenox Further orders pending Dr. Gonzalez's evaluation and treatment Impression: []Dehydration Atrial fibrillation Acute sinusitis Definitive disposition and diagnosis as appropriate pending reevaluation and review of above. - Related Data Allergies Allergy/AdvReac Type Severity Reaction Status Date / Time No Known Allergies Allergy Verified 03/29/17 22:23 Home Meds: Home Meds . 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: Neurological History: Reports: None Psychiatric History: Reports: None Endocrine/Metabolic History: Reports: None Hematologic History: Reports: None Immunologic History: Reports: None Oncologic (Cancer) History: Reports: None - Infectious Disease History Infectious Disease History: Reports: Chicken Pox, Measles, Mumps - Past Surgical History Head Surgeries/Procedures: Reports: None HEENT Surgical History: Reports: Cataract Surgery GI Surgical History: Reports: Appendectomy, Other (See Below) Female Surgical History: Reports: Section Musculoskeletal Surgical History: Reports: Arthroscopic Procedure, Hip Replacement Social & Family History - Family History Family Medical History: Noncontributory - Tobacco Use Smoking Status *Q: Never Smoker Years of Tobacco use: 1 Used Tobacco, but Quit: No Second Hand Smoke Exposure: No - Caffeine Use Caffeine Use: Reports: Tea - Alcohol Use Days Per Week of Alcohol Use: 0 Number of Drinks Per Day: 0 Total Drinks Per Week: 0 - Recreational Drug Use Recreational Drug Use: No Drug Use in Last 12 Months: No ED ROS GENERAL - Review of Systems Review Of Systems: ROS reveals no pertinent complaints other than HPI. ED EXAM, GENERAL - Physical Exam Exam: See Below Course - Vital Signs Last Recorded V/S: Last Vital Signs Temp 36.7 C 03/29/17 22:04 Pulse 90 03/29/17 22:04 Resp 16 03/29/17 22:04 BP 143/67 H 03/29/17 22:04 Pulse Ox 96 03/29/17 22:04 - Orders/Labs/Meds Orders: Active Orders 24 hr Category Date Time Status EKG Documentation Completion [RC] STAT Care 03/29/17 22:38 Active Chest 1V Frontal [CR] Stat Exams 03/29/17 22:38 Taken Sodium Chloride 0.9% [Normal Saline] 1,000 ml Med 03/29/17 22:45 Active IV STAT Medication Orders Sodium Chloride (Normal Saline) 1,000 mls @ 125 mls/hr IV STAT CARLY Last Admin: 03/29/17 23:18 Dose: 125 mls/hr Labs: Laboratory Tests 03/29/17 03/29/17 03/29/17 Range/Units 22:47 22:47 22:47 WBC 10.18 (4.0-11.0) K/uL RBC 3.65 L (4.30-5.90) M/uL Hgb 12.2 (12.0-16.0) g/dL Hct 35.6 L (36.0-46.0) % MCV 97.5 (80.0-98.0) fL MCH 33.4 H (27.0-32.0) pg MCHC 34.3 (31.0-37.0) g/dL RDW Std Deviation 50.9 (28.0-62.0) fl RDW Coeff of [place] 14 (11.0-15.0) % Plt Count 361 (150-400) K/uL MPV 10.50 (7.40-12.00) fL Neut % (Auto) 79.1 (48.0-80.0) % Lymph % (Auto) 15.6 L (16.0-40.0) % [place] % (Auto) 5.0 (0.0-15.0) % Eos % (Auto) 0.1 (0.0-7.0) % Baso % (Auto) 0.2 (0.0-1.5) % Neut # (Auto) 8.1 H (1.4-5.7) K/uL Lymph # (Auto) 1.6 (0.6-2.4) K/uL [place] # (Auto) 0.5 (0.0-0.8) K/uL Eos # (Auto) 0.0 (0.0-0.7) K/uL Baso # (Auto) 0.0 (0.0-0.1) K/uL Nucleated RBC % 0.0 /100WBC Nucleated RBCs # 0 K/uL INR (0.86-1.11) Sodium 134 L (136-146) mmol/L Potassium 3.9 (3.5-5.1) mmol/L Chloride 105 (98-110) mmol/L Carbon Dioxide 20 L (21-31) mmol/L BUN 13 (6.0-23.0) mg/dL Creatinine 0.7 (0.6-1.5) mg/dL Est Cr Clr Drug Dosing 56.27 mL/min Estimated GFR (MDRD) > 60.0 ml/min Glucose 121 H (60-110) mg/dL Calcium 9.7 (8.8-10.8) mg/dL Total Bilirubin 0.9 (0.1-1.5) mg/dL AST 20 (5-40) IU/L ALT 12 (8-54) IU/L Alkaline Phosphatase 35 L (40-150) Troponin I < 0.10 (0.0-0.29) NG/ML Total Protein 6.8 (6.0-8.0) g/dL Albumin 4.1 (3.4-4.8) g/dL Globulin 2.7 (2.0-3.5) g/dL Albumin/Globulin Ratio 1.5 (1.3-2.8) Amylase 19 (10-90) U/L Lipase 17 (7-80) U/L Urine Color Urine Appearance Urine pH (5.0-8.0) Ur Specific Hooks (1.001-1.035) Urine Protein (NEGATIVE) mg/dL Urine Glucose (UA) (NEGATIVE) mg/dL Urine Ketones (NEGATIVE) mg/dL Urine Occult Blood (NEGATIVE) Urine Nitrite (NEGATIVE) Urine Bilirubin (NEGATIVE) Urine Urobilinogen (<2.0) EU/dL Ur Leukocyte Esterase (NEGATIVE) Urine RBC (0-2/HPF) Urine WBC (0-5/HPF) Ur Epithelial Cells (NONE-FEW) Urine Bacteria (NEGATIVE) 03/29/17 03/29/17 Range/Units 22:47 22:59 WBC (4.0-11.0) K/uL RBC (4.30-5.90) M/uL Hgb (12.0-16.0) g/dL Hct (36.0-46.0) % MCV (80.0-98.0) fL MCH (27.0-32.0) pg MCHC (31.0-37.0) g/dL RDW Std Deviation (28.0-62.0) fl RDW Coeff of [place] (11.0-15.0) % Plt Count (150-400) K/uL MPV (7.40-12.00) fL Neut % (Auto) (48.0-80.0) % Lymph % (Auto) (16.0-40.0) % [place] % (Auto) (0.0-15.0) % Eos % (Auto) (0.0-7.0) % Baso % (Auto) (0.0-1.5) % Neut # (Auto) (1.4-5.7) K/uL Lymph # (Auto) (0.6-2.4) K/uL [place] # (Auto) (0.0-0.8) K/uL Eos # (Auto) (0.0-0.7) K/uL Baso # (Auto) (0.0-0.1) K/uL Nucleated RBC % /100WBC Nucleated RBCs # K/uL INR 1.16 H (0.86-1.11) Sodium (136-146) mmol/L Potassium (3.5-5.1) mmol/L Chloride (98-110) mmol/L Carbon Dioxide (21-31) mmol/L BUN (6.0-23.0) mg/dL Creatinine (0.6-1.5) mg/dL Est Cr Clr Drug Dosing mL/min Estimated GFR (MDRD) ml/min Glucose (60-110) mg/dL Calcium (8.8-10.8) mg/dL Total Bilirubin (0.1-1.5) mg/dL AST (5-40) IU/L ALT (8-54) IU/L Alkaline Phosphatase (40-150) Troponin I (0.0-0.29) NG/ML Total Protein (6.0-8.0) g/dL Albumin (3.4-4.8) g/dL Globulin (2.0-3.5) g/dL Albumin/Globulin Ratio (1.3-2.8) Amylase (10-90) U/L Lipase (7-80) U/L Urine Color YELLOW Urine Appearance CLEAR Urine pH 5.5 (5.0-8.0) Ur Specific Hooks <= 1.005 (1.001-1.035) Urine Protein NEGATIVE (NEGATIVE) mg/dL Urine Glucose (UA) NEGATIVE (NEGATIVE) mg/dL Urine Ketones TRACE H (NEGATIVE) mg/dL Urine Occult Blood TRACE-INTACT (NEGATIVE) Urine Nitrite NEGATIVE (NEGATIVE) Urine Bilirubin NEGATIVE (NEGATIVE) Urine Urobilinogen 0.2 (<2.0) EU/dL Ur Leukocyte Esterase MODERATE (NEGATIVE) Urine RBC 0-1 (0-2/HPF) Urine WBC 1-3 (0-5/HPF) Ur Epithelial Cells FEW (NONE-FEW) Urine Bacteria FEW (NEGATIVE) Meds: Medications Generic Name Dose Route Start Last Admin Trade Name Freq PRN Reason Stop Dose Admin Sodium Chloride 1,000 mls @ 125 mls/hr 03/29/17 22:45 03/29/17 23:18 Normal Saline IV 125 mls/hr STAT CARLY Administration Departure - Departure Time of Disposition: 23:54 Disposition: Refer to Observation Condition: Fair Clinical Impression: Sinusitis, Atrial fibrillation, Dehydration Referrals: PCP,None [Primary Care Provider] - Forms: ED Department Discharge - My Orders Last 24 Hours: My Active Orders 03/29/17 22:38 EKG Documentation Completion [RC] STAT Chest 1V Frontal [CR] Stat 03/29/17 22:45 Sodium Chloride 0.9% [Normal Saline] 1,000 ml IV STAT - Assessment/Plan Last 24 Hours: My Active Orders 03/29/17 22:38 EKG Documentation Completion [RC] STAT Chest 1V Frontal [CR] Stat 03/29/17 22:45 Sodium Chloride 0.9% [Normal Saline] 1,000 ml IV STAT
[2017-03-29] MEDS ORDERED: Sodium Chloride 0.9% 1,000 ML IV SCH (22:45)
[2017-03-29 23:34] LABS: CHLORIDE,CL 105 mmol/L (98-110); SODIUM,NA 134 mmol/L (136-146)
[2017-03-30] MEDS ORDERED: Sodium Chloride 0.9% 1,000 ML IV SCH (01:00)
[2017-03-30] MEDS ORDERED: cefTRIAXone 1 GM in Premix Bag 1 BAG IV SCH (01:30)
--- NOTE | 2017-03-30 09:40 | CR ---
EXAM DATE: 03/29/17 PATIENT'S AGE: 81 Patient: KADE MANCUSO Facility: [place], [place] Site . Site : [id number] Study: XRay Chest [id number]/31/2017 11:41:03 PM Ordering Physician: Doctor Saeed Final Report: INDICATION: Dizziness. TECHNIQUE: Chest radiograph 1 view COMPARISON: 07/22/2015. FINDINGS: Lung markings are unchanged. Heart and mediastinal contours are stable, allowing for underlying kyphos deformity. No pneumothorax or pleural effusion. No suspicious pulmonary nodule or focal infiltrate. IMPRESSION: 1. No acute cardiopulmonary disease is seen. Dictated by Gold Olsen MD @ 03/29/2017 11:46:59 PM Dictated by: Gold Olsen MD @ 03/29/2017 23:47:03 (Electronic Signature) Report Signed by Proxy. [facility]PITALMoy
--- NOTE | 2017-03-30 09:44 | PCM.HP ---
H&P History of Present Illness - General Date of Service: 03/30/17 Admit Problem/Dx: Admission Diagnosis/Problem Admission Diagnosis/Problem Dehydration Source of Information: Patient History Limitations: Reports: No Limitations - History of Present Illness Initial Comments - Free Text/Narative: This 81 year old female with little pmh presented to the ED via EMS from [place] with concerns of dizziness. She reports around 6 pm she had a small episode of dizziness, which quick subsided and after that she had a couple more episodes. She call [facility] EMT to be evaluate and he felt she should be seen in the ED. She reports some ear fullness with popping, sinus congestion with post nasal drip. She denies fevers, malaise, sore throat cough SOB or chest pain. She feels some palpitations intermittently.No abdominal pain or urinary symptoms. She takes no home medications besides multivitamins. She has hx of fracture femur and L pelvis, she does walk with a small gait imbalance, but does not use a cane or walker. In the ED WBC 10,000, hgb 12.2 Na 134, BUN 13, Cr 0.7, Ua negative. CXR negative. EKG was obtained, appears SR with frequent PACS vs atrial tachycardia , ED MDquestioned afib. VS stable. She was admitted with dizziness and acute sinusitis. PCP, Dr. Garcia - Related Data Allergies/Adverse Reactions: Allergies Allergy/AdvReac Type Severity Reaction Status Date / Time No Known Allergies Allergy Verified 03/29/17 22:23 Home Medications: Home Meds Acetaminophen [Tylenol] 650 mg PO Q4H PRN tablet 03/30/17 [Rx] Fluticasone Propionate [Flonase] 1 spray NASBOTH DAILY #1 bottle 03/30/17 [Rx] Loratadine [Claritin] 10 mg PO DAILY #30 tablet 03/30/17 [Rx] Past Medical History - Past Health History Medical/Surgical History: Denies Medical/Surgical History HEENT History: Reports: Cataract, Impaired Vision Cardiovascular History: Reports: None. Denies: Afib, CAD, High Cholesterol, Hypertension, [place] Respiratory History: Reports: None. Denies: Asthma, COPD, PE Gastrointestinal History: Reports: None. Denies: GERD 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 History: Reports: None. 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 Denies: CVA, Migraines, TIA Psychiatric History: Reports: None Endocrine/Metabolic History: Reports: None. Denies: Diabetes, Type II, Hypothyroidism Hematologic History: Reports: None Immunologic History: Reports: None Oncologic (Cancer) History: Reports: None - Infectious Disease History Infectious Disease History: Reports: C-Difficile, Chicken Pox, Measles, Mumps - Past Surgical History Head Surgeries/Procedures: Reports: None HEENT Surgical History: Reports: Cataract Surgery GI Surgical History: Reports: Appendectomy, Other (See Below) Female Surgical History: Reports: Section Musculoskeletal Surgical History: Reports: Arthroscopic Procedure, Hip Replacement Social & Family History - Family History Family Medical History: Noncontributory - Tobacco Use Smoking Status *Q: Never Smoker Years of Tobacco use: 1 Used Tobacco, but Quit: No Second Hand Smoke Exposure: No - Caffeine Use Caffeine Use: Reports: Soda, Tea - Alcohol Use Days Per Week of Alcohol Use: 0 Number of Drinks Per Day: 0 Total Drinks Per Week: 0 - Recreational Drug Use Recreational Drug Use: No Drug Use in Last 12 Months: No - Living Situation & Occupation Living situation: Reports: Alone Occupation: Retired H&P Review of Systems - Review of Systems: Review Of Systems: See Below General: Reports: No Symptoms. Denies: Fever, Chills, Weakness HEENT: Reports: Hearing Changes, Post Nasal Drip, Sinus Congestion, Vertigo, Other (ear fullness). Denies: Headaches, Sore Throat, Visual Changes Pulmonary: Reports: No Symptoms. Denies: Shortness of Breath, Wheezing, Cough, Sputum Cardiovascular: Reports: Palpitations (intermittently). Denies: Chest Pain, Dyspnea on Exertion, Orthopnea, Edema Gastrointestinal: Reports: No Symptoms. Denies: Abdominal Pain, Black Stool, Bloody Stool, Diarrhea, Nausea, Vomiting 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: Reports: No Symptoms. Denies: Dysuria, Frequency, Burning, Pain , Urgency Musculoskeletal: Reports: No Symptoms. Denies: Neck Pain Skin: Reports: No Symptoms Psychiatric: Reports: No Symptoms Neurological: Reports: No Symptoms Hematologic/Lymphatic: Reports: No Symptoms Immunologic: Reports: No Symptoms Exam - Exam Exam: See Below - Vital Signs Vital Signs: Last Vital Signs Temp 98.9 F 03/30/17 08:00 Pulse 76 03/30/17 08:00 Resp 16 03/30/17 08:00 BP 142/64 H 03/30/17 08:00 Pulse Ox 96 03/30/17 08:00 Weight: 70 kg - Exam General: Alert, Oriented, Cooperative HEENT: Conjunctiva Clear, Mucosa Moist & [place], Posterior Pharynx Clear, Pupils Reactive, TMs Clear, Other (frontal sinus pressure to palpation, audible sinus congestion) Neck: Supple, Trachea Midline, 2 Lungs: Clear to Auscultation, Normal Respiratory Effort Cardiovascular: Regular Rate, Normal S1, Normal S2, Irregular Rhythm. No: Systolic Murmur GI/Abdominal Exam: Normal Bowel Sounds, Soft, Non-Tender, No Organomegaly, No Distention, No Abnormal Bruit, No Mass, Pelvis Stable Extremities: Normal Inspection, Normal Range of Motion, Non-Tender, No Pedal Edema, Normal Capillary Refill Neurological: Cranial Nerves Intact, Reflexes Equal Bilateral Neuro Extensive - Mental Status: Alert, Oriented x3, Normal Mood/Affect, Normal Cognition Psychiatric: Alert, Normal Affect, Normal Mood - Patient Data Result Diagrams: 03/29/17 22:47 03/29/17 22:47 EKG INTERPRETATION EKG Date: 03/29/17 Time: 22:11 Rhythm: NSR (with frequent PACs) Earling: Normal P-Wave: Present QRS: Normal ST-T: Normal QT: Normal *Q Meaningful Use (ADM) - VTE *Q VTE Criteria *Q: - Stroke *Q Stroke Criteria *Q: - AMI *Q AMI Criteria *Q: - Problem List (1) Dehydration SNOMED Code(s): 20025829 ICD Code: E86.0 - DEHYDRATION Status: Resolved Current Visit: Yes (2) Sinusitis SNOMED Code(s): 66992820 ICD Code: J32.9 - CHRONIC SINUSITIS, UNSPECIFIED Status: Acute Current Visit: Yes Qualifiers: Sinusitis location: frontal Chronicity: acute Recurrence: non-recurrent Qualified Code(s): J01.10 - Acute frontal sinusitis, unspecified (3) Hx of fracture of pelvis SNOMED Code(s): 939078735 ICD Code: Z87.81 - PERSONAL HISTORY OF (HEALED) TRAUMATIC FRACTURE Status: Chronic Current Visit: Yes Problem List Initiated/Reviewed/Updated: Yes Orders Last 24hrs: Active Orders 24 hr Category Date Time Status Telemetry Monitoring [Cardiac Monitoring] [RC] Q8H Care 03/30/17 01:02 Active Regular Diet [DIET] Diet 03/30/17 Breakfast Active Sodium Chloride 0.9% [Normal Saline] 1,000 ml Med 03/30/17 01:00 Active IV ASDIRECTED cefTRIAXone [Rocephin in Dextrose,Iso-Osm 1 GM/50 ML] 1 Med 03/30/17 01:30 Active gm Premix Bag 1 bag IV Q24H Medication Orders Sodium Chloride (Normal Saline) 1,000 mls @ 125 mls/hr IV STAT CARLY Last Admin: 03/29/17 23:18 Dose: 125 mls/hr Sodium Chloride (Normal Saline) 1,000 mls @ 125 mls/hr IV ASDIRECTED CARLY Last Admin: 03/30/17 07:59 Dose: 125 mls/hr Ceftriaxone Sodium/Dextrose 1 (gm/ Premix) 50 mls @ 100 mls/hr IV Q24H CARLY Last Infusion: 03/30/17 01:57 Dose: 100 mls/hr Admin: 03/30/17 01:27 Dose: 100 mls/hr Assessment/Plan Comment:: This 81 year old female admitted with dizziness and acute sinusitis 1. Dizziness: Maybe related to acute sinusitis. Rocephin IV given. along with IVFs . Will check orthostatic BPs. Has not had any episodes of dizziness since admission. Will add Flonase and Loratidine. 2. Sinus arrhythmia: ED questioned afib, tele and EKG appear to be SA with frequent PACs. P waves present. No history of afib. May need event monitor and to follow with PCP. VTE prophylaxis: SCDs Discharge Plan; Discharge Diagnoses: Allergic sinusitis Dizziness-resolved Dehydration- resolved Atrial tachycardia vs SR with frequent PACs Loli was monitored overnight on telemetry. SR with frequent PACs noted with HR in 60-80s. Orthostatic VS stable, no hypotension noted. She continues to have some fullness in her ears and sinus congestion with post nasal drip. No further dizziness episodes noted. She was given IVFs overnight. Rocephin given for thoughts of possible bacterial sinusitis, but likely more allergic in nature. This am she was given Loratadine and Flonase. She has no chest pain or SOB, no palpitations. She will be discharge home with Flonase and Loratadine. We will arrange follow up with PCP, Dr. Garcia. She is to return to ED or clinic if concerns should arise.
[2017-03-30] MEDS ORDERED: Acetaminophen 325 MG Tab PO PRN (09:52)
[2017-03-30] MEDS ORDERED: Ondansetron 4 MG Tab.DIS PO PRN (09:52)
[2017-03-30] MEDS ORDERED: Loratadine 10 MG Tab PO SCH (10:00)
[2017-03-30] MEDS ORDERED: Fluticasone Propionate Nasal Spray 16 GM Bottle NASBOTH SCH (10:00)
[2017-03-30 11:29] VITALS: BP 132/72
== END 2017-03-30 13:40 | disposition home or self-care (01) ==
LOC: MW.ED 22:04 → MW.MS 23:56
PROVIDERS: ADMIT Internal Medicine; ATTEND Internal Medicine
DX: R42 Dizziness and giddiness (principal); E86.0 Dehydration; J01.10 Acute frontal sinusitis, unspecified; I49.9 Cardiac arrhythmia, unspecified; Z86.19 Personal history of other infectious and parasitic diseases; Z87.81 Personal history of (healed) traumatic fracture; Z96.649 Presence of unspecified artificial hip joint; Z90.49 Acquired absence of other specified parts of digestive tract; Z98.890 Other specified postprocedural states
CPT/HCPCS: 71010; 80053; 81001; 82150; 83690; 84484; 85025; 85610; 93005; 96361; 96365; 99285; A9270; G0378; J0696; J7040; 96360; 99283

== ENCOUNTER 2018-11-26 06:24 | Day surgery (SDC) | payer MEDICARE, OTHER ==
[~2018-11-26 06:24] MED LIST: Lactated Ringers 1,000 ML IV SCH; Sodium Chloride 0.9% 10 ML SDV IV PRN; Sodium Chloride 0.9% 10 ML Syringe FLUSH PRN; Sodium Chloride 0.9% 2.5 ML Syringe FLUSH PRN
--- NOTE | 2018-11-26 07:09 | PCM.PREANE ---
Preanesthetic Assessment - Anesthesia/Transfusion/Family Hx Anesthesia History: Prior Anesthesia Without Reaction Family History of Anesthesia Reaction: No Transfusion History: No Prior Transfusion(s) Intubation History: Unknown - Review of Systems General: No Symptoms Pulmonary: No Symptoms Cardiovascular: No Symptoms Gastrointestinal: Constipation, Diarrhea, Other (h/o v\colon polyps) Neurological: No Symptoms Other: Reports: None - Physical Assessment Height: 1.65 m Weight: 74.389 kg ASA Class: 3 Mental Status: Alert & Oriented x3 Airway Class: Mallampati = 2 Dentition: Reports: Normal Dentition Thyro-Mental Finger Breadths: 3 Mouth Opening Finger Breadths: 3 ROM/Head Extension: Limited/Partial Lungs: Clear to Auscultation, Normal Respiratory Effort Cardiovascular: Regular Rate, Regular Rhythm - Allergies Allergies/Adverse Reactions: Allergies Allergy/AdvReac Type Severity Reaction Status Date / Time No Known Allergies Allergy Verified 11/22/18 11:21 - Blood Blood Available: No - Anesthesia Plan Pre-Op Medication Ordered: None - Acknowledgements Anesthesia Type Planned: MAC Pt an Appropriate Candidate for the Planned Anesthesia: Yes Alternatives and Risks of Anesthesia Discussed w Pt/Guardian: Yes Pt/Guardian Understands and Agrees with Anesthesia Plan: Yes PreAnesthesia Questionnaire - Past Health History Medical/Surgical History: Denies Medical/Surgical History HEENT History: Reports: Cataract, Impaired Vision Other HEENT History: wears glasses Cardiovascular History: Reports: Hypertension, Other (See Below) (h/o palpitations) Respiratory History: Reports: None, Other (See Below) (pulmonary nodule on imaging study) Gastrointestinal History: Reports: Colon Polyp, Diverticulosis, Other (See Below ) Other Gastrointestinal History: occasional heartburn, hx C-diff 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, Recurrent 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: Musculoskeletal History: Reports: Arthritis, Fracture, Osteoporosis Other Musculoskeletal History: hx fx hip, fx femur and fx pelvis Neurological History: Reports: None Psychiatric History: Reports: None Endocrine/Metabolic History: Reports: None Hematologic History: Reports: None Immunologic History: Reports: None Oncologic (Cancer) History: Reports: None Dermatologic History: Reports: None - Infectious Disease History Infectious Disease History: Reports: C-Difficile, Chicken Pox, Measles, Mumps - Past Surgical History Head Surgeries/Procedures: Reports: None HEENT Surgical History: Reports: Cataract Surgery Cardiovascular Surgical History: Reports: None Respiratory Surgical History: Reports: None GI Surgical History: Reports: Appendectomy, Colonoscopy (2015), Other (See Below ) Other GI Surgeries/Procedures: Esophageal hernia repair Female Surgical History: Reports: Section (x2) Endocrine Surgical History: Reports: None Musculoskeletal Surgical History: Reports: Arthroscopic Procedure, Hip Replacement Other Musculoskeletal Surgeries/Procedures:: surgical tx for fx femur, surgical tx for fx left hip Dermatological Surgical History: Reports: Skin Biopsy - SUBSTANCE USE Smoking Status *Q: Never Smoker Recreational Drug Use History: No - HOME MEDS Home Medications: Home Meds Fluticasone Propionate [Flonase] 1 spray NASBOTH DAILY #1 bottle 03/30/17 [Rx] Denosumab [Prolia] 1 injection IM ASDIRECTED 11/22/18 [History] Metoprolol Succinate 50 mg PO DAILY 11/22/18 [History] - CURRENT (IN HOUSE) MEDS Current Meds: Current Medications Lactated Ringer's (Ringers, Lactated) 1,000 mls @ 125 mls/hr IV ASDIRECTED CARLY Sodium Chloride (Saline Flush) 10 ml FLUSH ASDIRECTED PRN PRN Reason: Keep Vein Open Sodium Chloride (Saline Flush) 2.5 ml FLUSH ASDIRECTED PRN PRN Reason: Keep Vein Open Sodium Chloride (Saline Flush) 10 ml FLUSH ASDIRECTED PRN PRN Reason: Keep Vein Open Sodium Chloride (Saline Flush) 2.5 ml FLUSH ASDIRECTED PRN PRN Reason: Keep Vein Open Sodium Chloride (Normal Saline) 10 ml IV ASDIRECTED PRN PRN Reason: IV Use
[2018-11-26] MEDS ORDERED: Propofol 200 MG/20 ML SDV ONE (07:13)
[2018-11-26] MEDS ORDERED: fentaNYL 100 MCG/2 ML SDV ONE (07:13)
--- NOTE | 2018-11-26 08:21 | PCM.OPNOTE ---
<Genesis Calderón - Last Filed: 11/26/18 08:19> - General Post-Op/Procedure Note Date of Surgery/Procedure: 11/26/18 Operative Procedure(s): diagnostic colonoscopy Findings: mild stricture of sigmoid colon Pre Op Diagnosis: change in bowel habits Post-Op Diagnosis: mild stricture of sigmoid colon Anesthesia Technique: [facility] [place] Surgeon: Eve Loo Pathology: biopsy of sigmoid stricture Condition: Good <Eve Loo - Last Filed: 11/26/18 09:14> - General Post-Op/Procedure Note Post-Op Diagnosis: diverticulosis Free Text/Narrative:: Intake & Output 11/25/18 11/26/18 11/26/18 22:59 06:59 14:59 Intake Total 550 Balance 550
--- NOTE | 2018-11-26 08:37 | PCM.POSTAN ---
POST ANESTHESIA ASSESSMENT - MENTAL STATUS Mental Status: Alert, Oriented - VITAL SIGNS Pulse Rate: 46 SaO2: 98 Resp Rate: 18 Blood Pressure: 115/49 Temperature: 98.6 F - RESPIRATORY Respiratory Status: Respiratory Rate WNL, Airway Patent, O2 Saturation Stable - CARDIOVASCULAR CV Status: Blood Pressure Stable, Slow Pulse Rate - GASTROINTESTINAL GI Status: No Symptoms - POST OP HYDRATION Hydration Status: Adequate & Stable
[2018-11-26 09:18] VITALS: BP 115/49
--- NOTE | 2018-11-26 09:18 | PCM48HPAN ---
Post Anesthesia Note - EVALUATION WITHIN 48HRS OF ANESTHETIC Vital Signs in Normal Range: Yes Patient Participated in Evaluation: Yes Respiratory Function Stable: Yes Airway Patent: Yes Cardiovascular Function Stable: Yes Hydration Status Stable: Yes Pain Control Satisfactory: Yes Nausea and Vomiting Control Satisfactory: Yes Mental Status Recovered: Yes Pulse Rate: 46 SaO2: 97 Resp Rate: 16 Temperature: 98.6 F Blood Pressure: 115/49
--- NOTE | 2018-11-26 16:27 | OR ---
SURGEON: EVE LOO MD DATE OF PROCEDURE: 11/26/2018 PREOPERATIVE DIAGNOSIS: Change in bowel habits. POSTOPERATIVE DIAGNOSES: 1. Diverticulosis. 2. Mild stricture of the sigmoid colon. PROCEDURE PERFORMED: Diagnostic colonoscopy. ENDOSCOPIST: Eve Loo MD. ANESTHESIA: MAC. INSTRUMENT USED: Olympus colonoscope. EXTENT OF EXAM: To the cecum. PREPARATION: Good. LIMITATIONS: None. INDICATION FOR EXAMINATION: The patient is an 83-year-old female who presents with changes in her bowel habits. A CT scan was performed that showed diverticulosis. Fecal occult blood testing was negative. Despite this, the patient continues to have issues with constipation and we discussed the need for diagnostic colonoscopy. I explained the procedure, expected perioperative course, and risks including bleeding, infection, or damage to surrounding structures including perforation. The patient verbalized understanding and wishes to proceed. PROCEDURE IN DETAIL: The patient was brought to the endoscopy suite and placed in the left lateral decubitus position. A time-out was completed verifying the patient's name, age, date of , allergies, and procedure to be performed. Monitored anesthesia care was induced and continuous oxygen was provided via nasal cannula throughout the procedure. After adequate sedation was achieved, a digital rectal exam was performed. This exam was within normal limits. A well lubricated colonoscope was inserted into the rectum and advanced under direct visualization to the level of the cecum. The patient was noted to have a narrowing within the midportion of the sigmoid colon. I was able to safely pass the scope through this area. The cecum was identified by both visual and anatomic landmarks. A photograph was taken of the cecal cap; however, I was unable to retroflex the scope within the cecum due to looping of the scope more proximally. The scope was then fully withdrawn while examining the color, texture, anatomy, and integrity of the mucosa from the cecum to the anal canal. In the sigmoid colon, the patient was noted to have extensive diverticulosis. In the midportion of the sigmoid colon, there was a narrowed area. Biopsy of this was taken and sent to Pathology, labeled as sigmoid colon biopsy. The remainder of the colon appeared normal. The scope was brought into the rectum and retroflexed to allow visualization of the anal canal opening. This appeared normal and a photograph was taken. The scope was straightened out and fully withdrawn. The cecum to anus time was 6 minutes. The patient tolerated the procedure well and was taken to PACU in stable condition. ENDOSCOPIC DIAGNOSES: 1. Diverticulosis. 2. Mild stricture of the sigmoid colon. RECOMMENDATIONS: We will follow up with the patient in clinic in 2 weeks to discuss her biopsy results and further management of her constipation. AUDRA EBLTRE /[id number]
== END 2018-11-26 09:37 | disposition home or self-care (01) ==
LOC: MW.SDS 06:24
PROVIDERS: ATTEND Surgery
DX: K57.30 Diverticulosis of large intestine without perforation or abscess without bleeding (principal); K56.699 Other intestinal obstruction unspecified as to partial versus complete obstruction; I10 Essential (primary) hypertension; R91.1 Solitary pulmonary nodule; M21.6X1 Other acquired deformities of right foot; M19.90 Unspecified osteoarthritis, unspecified site; M81.0 Age-related osteoporosis without current pathological fracture; Z86.010 Personal history of colon polyps; Z79.51 Long term (current) use of inhaled steroids; Z79.899 Other long term (current) drug therapy
CPT/HCPCS: 45380; J2001; J2704; J3010; J7120; 88305

== ENCOUNTER 2020-01-07 18:24 | Emergency (ER) | payer MEDICARE, OTHER ==
[2020-01-07 19:01] VITALS: BP 167/63; PULSE 64
[2020-01-07] MEDS ORDERED: Magnesium Citrate Solution 296 ML Bottle PO ONE (19:10)
--- NOTE | 2020-01-07 19:18 | EDM.PDOC ---
ED HPI GENERAL MEDICAL PROBLEM - General Chief Complaint: Abdominal Pain Stated Complaint: constipation Time Seen by Provider: 01/07/20 19:04 Source of Information: Reports: Patient History Limitations: Reports: No Limitations - History of Present Illness INITIAL COMMENTS - FREE TEXT/NARRATIVE: History of present illness: [Patient is 84-year-old female presents with constipation. She states her last bowel movement was about 5 days ago. She states that she does not normally have problems with constipation. She tried a single dose of MiraLAX and was prescribed Dulcolax by her PCP but she is only taken a single dose of that as well. Denies any other new medications, does recall being recently treated for a sinus infection with antibiotics, but those are finished. Says she has the sensation of abdominal fullness and discomfort but says it is not particularly painful or debilitating and does not cause her severe distress. Denies vomiting. Denies fever. Denies chest pain or shortness of breath. Denies any known COVID-19 exposure.] Review of systems: As per history of present illness and below otherwise all systems reviewed and negative. Past medical history: As per history of present illness and as reviewed below otherwise noncontributory. Surgical history: As per history of present illness and as reviewed below otherwise noncontributory. Social history: No reported history of drug or alcohol abuse. Family history: As per history of present illness and as reviewed below otherwise noncontributory. Physical exam: General: Awake, alert, no acute distress, A&O X3. HEENT: Atraumatic, normocephalic, pupils reactive, negative for conjunctival pallor or scleral icterus, mucous membranes moist, throat clear, neck supple, nontender, trachea midline. Lungs: Clear to auscultation, breath sounds equal bilaterally, chest nontender. Heart: RRR, normal S1S2, no JVD. Abdomen: Soft, nondistended, nontender. Negative for masses or hepatosplenomegaly. Pelvis: Stable nontender. 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: Deferred. Rectal: Deferred. Extremities: Atraumatic, no edema, Neurovascular unremarkable. Neuro: Motor and sensory grossly intact throughout. Exam nonfocal. Diagnostics: [] Therapeutics: [] Impression: [] Plan: [] Definitive disposition and diagnosis as appropriate pending reevaluation and review of above. abdominal Pain Score (Numeric/FACES): 6 - Related Data Allergies Allergy/AdvReac Type Severity Reaction Status Date / Time No Known Allergies Allergy Verified 01/07/20 18:41 Home Meds: Home Meds Fluticasone Propionate [Flonase] 1 spray NASBOTH DAILY #1 bottle 03/30/17 [Rx] Denosumab [Prolia] 1 injection IM ASDIRECTED 11/22/18 [History] Metoprolol Succinate 50 mg PO DAILY 11/22/18 [History] Triamterene/Hydrochlorothiazid [Triamterene-HCTZ 37.5-25 MG] 1 tab PO DAILY 05/18 [History] Past Medical History - Past Health History Medical/Surgical History: Denies Medical/Surgical History HEENT History: Reports: Cataract, Impaired Vision Other HEENT History: wears glasses Cardiovascular History: Reports: Hypertension, Other (See Below) Respiratory History: Reports: None, Other (See Below) Gastrointestinal History: Reports: Colon Polyp, Diverticulosis, Other (See Below ) Other Gastrointestinal History: occasional heartburn, hx C-diff 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, 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: Musculoskeletal History: Reports: Arthritis, Fracture, Osteoporosis Other Musculoskeletal History: hx fx hip, fx femur and fx pelvis Neurological History: Reports: None Psychiatric History: Reports: None Endocrine/Metabolic History: Reports: Diabetes, Type II Hematologic History: Reports: None Immunologic History: Reports: None Oncologic (Cancer) History: Reports: None Dermatologic History: Reports: None - Infectious Disease History Infectious Disease History: Reports: Chicken Pox, Measles, Mumps - Past Surgical History Head Surgeries/Procedures: Reports: None HEENT Surgical History: Reports: Cataract Surgery Cardiovascular Surgical History: Reports: None Respiratory Surgical History: Reports: None GI Surgical History: Reports: Appendectomy, Colonoscopy, Other (See Below) Other GI Surgeries/Procedures: Esophageal hernia repair Female Surgical History: Reports: Section Endocrine Surgical History: Reports: None Musculoskeletal Surgical History: Reports: Arthroscopic Procedure, Hip Replacement Other Musculoskeletal Surgeries/Procedures:: surgical tx for fx femur, surgical tx for fx left hip Dermatological Surgical History: Reports: Skin Biopsy Social & Family History - Family History Family Medical History: Noncontributory - Tobacco Use Smoking Status *Q: Never Smoker - Caffeine Use Caffeine Use: Reports: Coffee, Tea - Recreational Drug Use Recreational Drug Use: No - Living Situation & Occupation Living situation: Reports: Alone Occupation: Retired ED ROS GENERAL - Review of Systems Review Of Systems: Comprehensive ROS is negative, except as noted in HPI. ED EXAM, GI/ABD - Physical Exam Exam: See Below (see h and p) Course - Vital Signs Text/Narrative:: Patient drink the magnesium citrate here in the ED. She has not yet had a bowel movement but she is requesting to go home and try and have the bowel movement in the comfort of her own home. Seems to be an agreeable plan. She is not in acute distress. No vomiting. Benign belly exam. Minimal pain/ discomfort. Strict return precautions provided should she develop new or worsening symptoms including uncontrolled nausea vomiting, severe worsening pain , fever, etc. Patient understands this plan and is agreeable with it. Well- appearing and nontoxic at the time of discharge. Last Recorded V/S: Last Vital Signs Temp 36.1 C 01/07/20 19:00 Pulse 64 01/07/20 19:00 Resp 18 01/07/20 19:00 BP 167/63 H 01/07/20 19:00 Pulse Ox 96 01/07/20 19:00 - Orders/Labs/Meds Meds: Medications Discontinued Medications Generic Name Dose Route Start Last Admin Trade Name Freq PRN Reason Stop Dose Admin Magnesium Citrate 0 ml 01/07/20 19:10 01/07/20 20:11 Citrate Of Magnesia PO 01/07/20 19:11 296 ml ONETIME ONE Administration Departure - Departure Time of Disposition: 21:16 Disposition: Home, Self-Care 01 Condition: Good Clinical Impression: Constipation - Discharge Information Instructions: Constipation, Adult Referrals: Kosta Garcia MD [Primary Care Provider] - Forms: ED Department Discharge Additional Instructions: Continue to use the MiraLAX that you previously bought at home as needed and directed to help facilitate bowel movements. Take all other medications as previously prescribed. Return to the ER with any new or worsening symptoms. Follow-up with primary care doctor. The following information is given to patients seen in the emergency department who are being discharged to home. This information is to outline your options for follow-up care. We provide all patients seen in our emergency department with a follow-up referral. The need for follow-up, as well as the timing and circumstances, are variable depending upon the specifics of your emergency department visit. If you don't have a primary care physician on staff, we will provide you with a referral. We always advise you to contact your personal physician following an emergency department visit to inform them of the circumstance of the visit and for follow-up with them and/or the need for any referrals to a consulting specialist. The emergency department will also refer you to a specialist when appropriate. This referral assures that you have the opportunity for follow-up care with a specialist. All of these measure are taken in an effort to provide you with optimal care, which includes your follow-up. Under all circumstances we always encourage you to contact your private physician who remains a resource for coordinating your care. When calling for follow-up care, please make the office aware that this follow-up is from your recent emergency room visit. If for any reason you are refused follow-up, please contact the Emergency Department at and asked to speak to the emergency department charge nurse. Sepsis Event Note (ED) - Evaluation Sepsis Screening Result: No Definite Risk - Focused Exam Vital Signs: Vital Signs Temp Pulse Resp BP Pulse Ox 01/07/20 19:00 36.1 C 64 18 167/63 H 96 01/07/20 18:38 36.9 C 75 18 183/75 H 98
--- NOTE | 2020-01-07 20:05 | CR ---
Abdominal series: Frontal view of the chest was obtained. Supine and upright views of the abdomen were also obtained. Comparison: No previous study. Heart size and mediastinum are normal. Lungs are clear with no acute parenchymal change. Slight scoliosis is noted within the spine. Nothing acute is seen within the chest. Mild degenerative change is noted within the spine. Bowel gas pattern is normal. Left hip prosthesis is seen. Calcifications are noted within the pelvis which are felt compatible with phleboliths. Mild arterial calcification is also seen. No free air is seen. Impression: 1. Findings as noted above. 2. Nothing acute is seen. Diagnostic code #2 This report was dictated in MDT
[2020-01-07] MEDS ORDERED: Ondansetron 4 MG Tab PO ONE (21:36)
== END 2020-01-07 21:54 | disposition home or self-care (01) ==
LOC: MW.ED 18:24
DX: K59.00 Constipation, unspecified (principal); I10 Essential (primary) hypertension; E11.9 Type 2 diabetes mellitus without complications; Z79.899 Other long term (current) drug therapy
CPT/HCPCS: 74022; 99283; A9270; 99282

== ENCOUNTER 2020-01-12 15:27 | Observation (INO) | payer MEDICARE, OTHER ==
[2020-01-12] MEDS ORDERED: Acetaminophen 325 MG Tab PO PRN (16:22)
[2020-01-12] MEDS ORDERED: Sodium Chloride 0.9% 2.5 ML Syringe FLUSH PRN (16:23)
[2020-01-12] MEDS ORDERED: Sodium Chloride 0.9% 1,000 ML IV SCH (16:30)
[2020-01-12 16:58] LABS: BLOOD UREA NITROGEN,BUN 13 mg/dL (7.0-18.0); CARBON DIOXIDE,CO2 24.4 mmol/L (21.0-32.0); CHLORIDE,CL 85 mmol/L (98-107); GLUCOSE RANDOM 165 mg/dL (74-106); POTASSIUM,K 3.6 mmol/L (3.5-5.1)
[2020-01-12 17:06] LABS: SODIUM,NA 120 mmol/L (136-145)
--- NOTE | 2020-01-12 17:37 | CR ---
Chest: Portable view of the chest was obtained. Comparison: Prior chest x-ray of 03/29/17. Heart size and mediastinum are normal. Scoliosis is noted within the spine. Possible small hiatal hernia is noted. Lungs are clear with no acute parenchymal change. Mild scarring is noted within the lateral left costophrenic angle. Scoliosis and mild degenerative change seen within the spine. Impression: 1. Findings as noted above. 2. Nothing acute is suspected on portable chest x-ray. Diagnostic code #2 This report was dictated in MDT
[2020-01-12] MEDS ORDERED: cefTRIAXone 1 GM Vial IVPUSH SCH (19:30)
--- NOTE | 2020-01-12 19:34 | PCM.HP.2 ---
H&P History of Present Illness - General Date of Service: 01/12/20 Admit Problem/Dx: Admission Diagnosis/Problem Admission Diagnosis/Problem Hyponatremia - History of Present Illness Initial Comments - Free Text/Narative: 84 yo female with pmh of diabetes, HTN and hyponatremia who presented to Dr. Garcia's clinic with complaints of urinary discomfort. She felt like she had to pee but could not. She also reports a poor apatitis this last week. She denies any fevers, chills, dizziness, or falls. Dr. Garcia noted a sodium of 120. It had been 129 last month. At the time he had decreased her HCTZ dose in half. Lower Abdomen Pain Score (Numeric/FACES): 6 - Related Data Allergies/Adverse Reactions: Allergies Allergy/AdvReac Type Severity Reaction Status Date / Time No Known Allergies Allergy Verified 01/12/20 15:47 Home Medications: Home Meds Fluticasone Propionate [Flonase] 1 spray NASBOTH DAILY #1 bottle 03/30/17 [Rx] Metoprolol Succinate 50 mg PO DAILY 11/22/18 [History] Triamterene/Hydrochlorothiazid [Triamterene-HCTZ 37.5-25 MG] 1 tab PO DAILY 05/18 [History] Denosumab [Prolia] 60 mg .XX [id number] 01/12/20 [History] Loratadine 10 mg PO DAILY 01/12/20 [History] Magnesium Oxide 400 mg PO DAILY 01/12/20 [History] Ondansetron [Zofran] 4 mg PO Q8H PRN 01/12/20 [History] metFORMIN [Glucophage XR] 1,000 mg PO TIDMEALS 01/12/20 [History] Past Medical History - Past Health History Medical/Surgical History: Denies Medical/Surgical History HEENT History: Reports: Cataract, Impaired Vision Other HEENT History: wears glasses Cardiovascular History: Reports: Hypertension, Other (See Below) Respiratory History: Reports: None, Other (See Below) Gastrointestinal History: Reports: Colon Polyp, Diverticulosis, Other (See Below ) Other Gastrointestinal History: occasional heartburn, hx C-diff 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, 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: Musculoskeletal History: Reports: Arthritis, Fracture, Osteoporosis Other Musculoskeletal History: hx fx hip, fx femur and fx pelvis Neurological History: Reports: None Psychiatric History: Reports: None Endocrine/Metabolic History: Reports: Diabetes, Type II Hematologic History: Reports: None Immunologic History: Reports: None Oncologic (Cancer) History: Reports: None Dermatologic History: Reports: None - Infectious Disease History Infectious Disease History: Reports: Chicken Pox, Measles, Mumps, Rubella, Shingles - Past Surgical History Head Surgeries/Procedures: Reports: None HEENT Surgical History: Reports: Cataract Surgery Cardiovascular Surgical History: Reports: None Respiratory Surgical History: Reports: None GI Surgical History: Reports: Appendectomy, Colonoscopy, Other (See Below) Other GI Surgeries/Procedures: Esophageal hernia repair Female Surgical History: Reports: Section Endocrine Surgical History: Reports: None Musculoskeletal Surgical History: Reports: Arthroscopic Procedure, Hip Replacement Other Musculoskeletal Surgeries/Procedures:: surgical tx for fx femur, surgical tx for fx left hip Dermatological Surgical History: Reports: Skin Biopsy Social & Family History - Family History Family Medical History: Noncontributory - Tobacco Use Smoking Status *Q: Never Smoker Second Hand Smoke Exposure: No - Caffeine Use Caffeine Use: Reports: Soda, Tea - Recreational Drug Use Recreational Drug Use: No - Living Situation & Occupation Living situation: Reports: Alone Occupation: Retired H&P Review of Systems - Review of Systems: Review Of Systems: Comprehensive ROS is negative, except as noted in HPI. Exam - Exam Exam: See Below - Vital Signs Vital Signs: Last Vital Signs Temp 36.8 C 01/12/20 15:36 Pulse 57 L 01/12/20 15:36 Resp 16 01/12/20 15:36 BP 140/65 01/12/20 15:36 Pulse Ox 95 01/12/20 15:36 Weight: 73.074 kg - Exam General: Alert, Oriented HEENT: Mucosa Moist & [place] Neck: Supple, Trachea Midline Lungs: Clear to Auscultation, Normal Respiratory Effort Cardiovascular: Regular Rate, Regular Rhythm GI/Abdominal Exam: Normal Bowel Sounds, Soft, Non-Tender Extremities: Non-Tender, No Pedal Edema Skin: Warm, Dry, Intact Neurological: No: Focal Deficit - Patient Data Lab Results Last 24 hrs: Laboratory Results - last 24 hr 01/12/20 01/12/20 01/12/20 Range/Units 16:35 16:35 17:20 WBC 8.19 (4.0-11.0) K/uL RBC 3.62 L (4.30-5.90) M/uL Hgb 12.1 (12.0-16.0) g/dL Hct 34.6 L (36.0-46.0) % MCV 95.6 (80.0-98.0) fL MCH 33.4 H (27.0-32.0) pg MCHC 35.0 (31.0-37.0) g/dL RDW Std Deviation 45.1 (28.0-62.0) fl RDW Coeff of [place] 13 (11.0-15.0) % Plt Count 411 H (150-400) K/uL MPV 9.50 (7.40-12.00) fL Neut % (Auto) 73.2 (48.0-80.0) % Lymph % (Auto) 17.8 (16.0-40.0) % [place] % (Auto) 8.7 (0.0-15.0) % Eos % (Auto) 0.2 (0.0-7.0) % Baso % (Auto) 0.1 (0.0-1.5) % Neut # (Auto) 6.0 H (1.4-5.7) K/uL Lymph # (Auto) 1.5 (0.6-2.4) K/uL [place] # (Auto) 0.7 (0.0-0.8) K/uL Eos # (Auto) 0.0 (0.0-0.7) K/uL Baso # (Auto) 0.0 (0.0-0.1) K/uL Nucleated RBC % 0.0 /100WBC Nucleated RBCs # 0 K/uL Sodium 120 L (136-145) mmol/L Potassium 3.6 (3.5-5.1) mmol/L Chloride 85 L (98-107) mmol/L Carbon Dioxide 24.4 (21.0-32.0) mmol/L BUN 13 (7.0-18.0) mg/dL Creatinine 0.8 (0.6-1.0) mg/dL Est Cr Clr Drug Dosing 46.82 mL/min Estimated GFR (MDRD) > 60.0 ml/min Glucose 165 H (74-106) mg/dL Calcium 10.0 (8.5-10.1) mg/dL Urine Color YELLOW Urine Appearance SLT CLOUDY Urine pH 6.0 (5.0-8.0) Ur Specific [place] 1.010 (1.001-1.035) Urine Protein NEGATIVE (NEGATIVE) mg/dL Urine Glucose (UA) NEGATIVE (NEGATIVE) mg/dL Urine Ketones 15 H (NEGATIVE) mg/dL Urine Occult Blood TRACE-LYSED H (NEGATIVE) Urine Nitrite NEGATIVE (NEGATIVE) Urine Bilirubin NEGATIVE (NEGATIVE) Urine Urobilinogen 0.2 (<2.0) EU/dL Ur Leukocyte Esterase MODERATE H (NEGATIVE) Urine RBC 0-2 (0-2/HPF) Urine WBC 5-10 (0-5/HPF) Ur Epithelial Cells MODERATE (NONE-FEW) Urine Bacteria FEW (NEGATIVE) Result Diagrams: 01/12/20 16:35 01/12/20 16:35 Sepsis Event Note - Evaluation Sepsis Screening Result: No Definite Risk - Focused Exam Vital Signs: Vital Signs Temp Pulse Resp BP Pulse Ox 01/12/20 15:36 36.8 C 57 L 16 140/65 95 Date Exam was Performed: 01/12/20 Time Exam was Performed: 19:30 Problem List Initiated/Reviewed/Updated: Yes Orders Last 24hrs: Active Orders 24 hr Category Date Time Status Admission Status [Patient Status] [ADT] Routine ADT 01/12/20 16:15 Active Intake and Output [RC] Q12HR Care 01/13/20 04:00 Active Oxygen Therapy [RC] PRN Care 01/12/20 19:29 Ordered Telemetry Monitoring [Cardiac Monitoring] [RC] Q8H Care 01/12/20 16:19 Active Up ad Arianna [RC] ASDIRECTED Care 01/12/20 19:29 Ordered VTE/DVT Education [RC] PER UNIT ROUTINE Care 01/12/20 19:29 Ordered Vital Signs [RC] Q4H Care 01/12/20 19:29 Ordered Vital Signs [RC] Q4H Care 01/12/20 20:00 Active Regular Diet [DIET] Diet 01/12/20 Dinner Active BASIC METABOLIC PANEL,BMP [CHEM] AM Lab 01/13/20 05:11 Ordered CBC WITH AUTO DIFF [HEME] AM Lab 01/13/20 05:11 Ordered CULTURE URINE [RM] Routine Lab 01/12/20 17:20 Received SODIUM,NA [CHEM] Routine Lab 01/12/20 19:09 Received Acetaminophen [Tylenol] Med 01/12/20 16:22 Active 650 mg PO Q6H PRN Metoprolol Succinate [Toprol XL] Med 01/13/20 09:00 Active 50 mg PO DAILY Sodium Chloride 0.9% [Normal Saline] 1,000 ml Med 01/12/20 16:30 Active IV ASDIRECTED Sodium Chloride 0.9% [Saline Flush] Med 01/12/20 16:23 Active 2.5 ml FLUSH ASDIRECTED PRN cefTRIAXone [Rocephin] Med 01/12/20 19:30 Ordered 1 gm IVPUSH Q24H Peripheral IV Insertion Adult [OM.PC] Routine Oth 01/12/20 16:23 Ordered Resuscitation Status Routine Resus Stat 01/12/20 19:29 Ordered Medication Orders Acetaminophen (Tylenol) 650 mg PO Q6H PRN PRN Reason: Pain Ceftriaxone Sodium (Rocephin) 1 gm IVPUSH Q24H CARLY Sodium Chloride (Normal Saline) 1,000 mls @ 125 mls/hr IV ASDIRECTED CARLY Last Admin: 01/12/20 16:32 Dose: 125 mls/hr Metoprolol Succinate (Toprol Xl) 50 mg PO DAILY CARLY Sodium Chloride (Saline Flush) 2.5 ml FLUSH ASDIRECTED PRN PRN Reason: Keep Vein Open Assessment/Plan Comment:: 84 yo female admitted for hyponatremia and UTI. Hyponatremia: could be from HCTZ or dehydration, will hydrate with NS and trend sodium UTI: on Rocephin, culture pending. DM: ssi
[2020-01-12] MEDS ORDERED: cefTRIAXone 1 GM in Premix Bag 1 BAG IV SCH (21:00)
[2020-01-13] MEDS ORDERED: Sodium Chloride 0.9% 1,000 ML IV SCH (03:00)
[2020-01-13 06:32] LABS: BLOOD UREA NITROGEN,BUN 8 mg/dL (7.0-18.0); CARBON DIOXIDE,CO2 29.2 mmol/L (21.0-32.0); CHLORIDE,CL 94 mmol/L (98-107); GLUCOSE RANDOM 122 mg/dL (74-106); POTASSIUM,K 3.2 mmol/L (3.5-5.1); SODIUM,NA 131 mmol/L (136-145)
[2020-01-13] MEDS: Insulin Aspart 100 Units/ML 3 ML Pen SUBCUT SCH ×2 (07:48→11:49)
[2020-01-13] MEDS ORDERED: Potassium Chloride 10 MEQ Tab.ER PO ONE (07:54)
[2020-01-13] MEDS ORDERED: Metoprolol Succinate 50 MG Tab.ER PO SCH (09:00)
[2020-01-13] MEDS ORDERED: Magnesium Sulfate/Water 2 GM in Premix Bag 1 BAG IV ONE (09:58)
--- NOTE | 2020-01-13 14:34 | PCM.DCSUM1 ---
Discharge Summary - Hospital Course Brief History: 84 yo female with pmh of diabetes, HTN and hyponatremia who presented to Dr. Garcia's clinic with complaints of urinary discomfort. She felt like she had to pee but could not. She also reports a poor apatitis this last week. She denies any fevers, chills, dizziness, or falls. Dr. Garcia noted a sodium of 120. It had been 129 last month. At the time he had decreased her HCTZ dose in half. Diagnosis: Stroke: No - Discharge Data Discharge Date: 01/13/20 Discharge Disposition: Home, Self-Care 01 Condition: Good - Referral to Home Health Primary Care Physician: Kosta Garcia MD - Discharge Diagnosis/Problem(s) (1) Hyponatremia SNOMED Code(s): 00608779 ICD Code: E87.1 - HYPO-OSMOLALITY AND HYPONATREMIA Status: Acute Current Visit: Yes - Patient Summary/Data Hospital Course: Admitting Diagnoses: Hyponatremia Discharge Diagnoses: Hyponatremia Other pmh: HTN DM Type 2 Loli was admitted for hyponatremia noted in the clinic at 120. She was treated with IVFs, NS. Sodium improved and this morning and she is feeling much better. She was treated with Rocephin for UTI. I spoke with Dr Garcia, Triamterene/HCTZ will be discontinued completely and replaced with Lisinopril 2.5 mg. She will have follow up with Dr Garcia next week with labwork to insure sodium remains stable. She will continue Keflex 500 mg BID for 5 days for UTI. She is to return to the ED or clinic if concerns should arise. - Patient Instructions Diet: Heart Healthy Diet Activity: As Tolerated, No Strenuous Activities Showering/Bathing: May Shower Notify Provider of: Fever, Increased Pain, Swelling and Redness, Drainage, Nausea and/or Vomiting - Discharge Plan *PRESCRIPTION DRUG MONITORING PROGRAM REVIEWED*: Not Applicable *COPY OF PRESCRIPTION DRUG MONITORING REPORT IN PATIENT SHRADDHA: Not Applicable Prescriptions/Med Rec: cephALEXin [Keflex] 500 mg PO BID #10 cap lisinopriL [Lisinopril] 2.5 mg PO DAILY #30 tablet Home Medications: Home Meds Fluticasone Propionate [Flonase] 1 spray NASBOTH DAILY #1 bottle 03/30/17 [Rx] Metoprolol Succinate 50 mg PO DAILY 11/22/18 [History] Denosumab [Prolia] 60 mg .XX [id number] 01/12/20 [History] Loratadine 10 mg PO DAILY 01/12/20 [History] Magnesium Oxide 400 mg PO DAILY 01/12/20 [History] Ondansetron [Zofran] 4 mg PO Q8H PRN 01/12/20 [History] metFORMIN [Glucophage XR] 500 mg PO BIDMEALS 01/12/20 [History] cephALEXin [Keflex] 500 mg PO BID #10 cap 01/13/20 [Rx] lisinopriL [Lisinopril] 2.5 mg PO DAILY #30 tablet 01/13/20 [Rx] Oxygen Therapy Mode: Room Air Patient Handouts: Sodium Test, Lisinopril tablets Referrals: Kosta Garcia MD [Primary Care Provider] - 01/21/20 9:00 am (Arrive 30 minutes because you need to get labs done prior to appointment. Bring a photo ID, insurance card, and a mask if you have one. ) - Discharge Summary/Plan Comment DC Time >30 min.: No - Patient Data Vitals - Most Recent: Last Vital Signs Temp 98.2 F 01/13/20 11:32 Pulse 57 L 01/13/20 11:32 Resp 15 01/13/20 11:32 BP 111/55 L 01/13/20 11:32 Pulse Ox 95 01/13/20 11:32 Weight - Most Recent: 73.074 kg I&O - Last 24 hours: Intake & Output 01/12/20 01/13/20 01/13/20 22:59 06:59 14:59 Intake Total 320 1180 Output Total 40 970 Balance 280 210 Lab Results - Last 24 hrs: Laboratory Results - last 24 hr 01/12/20 01/12/20 01/12/20 Range/Units 16:35 16:35 17:20 WBC 8.19 (4.0-11.0) K/uL RBC 3.62 L (4.30-5.90) M/uL Hgb 12.1 (12.0-16.0) g/dL Hct 34.6 L (36.0-46.0) % MCV 95.6 (80.0-98.0) fL MCH 33.4 H (27.0-32.0) pg MCHC 35.0 (31.0-37.0) g/dL RDW Std Deviation 45.1 (28.0-62.0) fl RDW Coeff of [place] 13 (11.0-15.0) % Plt Count 411 H (150-400) K/uL MPV 9.50 (7.40-12.00) fL Neut % (Auto) 73.2 (48.0-80.0) % Lymph % (Auto) 17.8 (16.0-40.0) % [place] % (Auto) 8.7 (0.0-15.0) % Eos % (Auto) 0.2 (0.0-7.0) % Baso % (Auto) 0.1 (0.0-1.5) % Neut # (Auto) 6.0 H (1.4-5.7) K/uL Lymph # (Auto) 1.5 (0.6-2.4) K/uL [place] # (Auto) 0.7 (0.0-0.8) K/uL Eos # (Auto) 0.0 (0.0-0.7) K/uL Baso # (Auto) 0.0 (0.0-0.1) K/uL Nucleated RBC % 0.0 /100WBC Nucleated RBCs # 0 K/uL Sodium 120 L (136-145) mmol/L Potassium 3.6 (3.5-5.1) mmol/L Chloride 85 L (98-107) mmol/L Carbon Dioxide 24.4 (21.0-32.0) mmol/L BUN 13 (7.0-18.0) mg/dL Creatinine 0.8 (0.6-1.0) mg/dL Est Cr Clr Drug Dosing 46.82 mL/min Estimated GFR (MDRD) > 60.0 ml/min Glucose 165 H (74-106) mg/dL POC Glucose (60-110) mg/dL Calcium 10.0 (8.5-10.1) mg/dL Magnesium (1.8-2.4) mg/dL Urine Color YELLOW Urine Appearance SLT CLOUDY Urine pH 6.0 (5.0-8.0) Ur Specific [place] 1.010 (1.001-1.035) Urine Protein NEGATIVE (NEGATIVE) mg/dL Urine Glucose (UA) NEGATIVE (NEGATIVE) mg/dL Urine Ketones 15 H (NEGATIVE) mg/dL Urine Occult Blood TRACE-LYSED H (NEGATIVE) Urine Nitrite NEGATIVE (NEGATIVE) Urine Bilirubin NEGATIVE (NEGATIVE) Urine Urobilinogen 0.2 (<2.0) EU/dL Ur Leukocyte Esterase MODERATE H (NEGATIVE) Urine RBC 0-2 (0-2/HPF) Urine WBC 5-10 (0-5/HPF) Ur Epithelial Cells MODERATE (NONE-FEW) Urine Bacteria FEW (NEGATIVE) 01/12/20 01/13/20 01/13/20 Range/Units 19:09 00:31 05:42 WBC 5.00 (4.0-11.0) K/uL RBC 3.37 L (4.30-5.90) M/uL Hgb 11.2 L (12.0-16.0) g/dL Hct 32.3 L (36.0-46.0) % MCV 95.8 (80.0-98.0) fL MCH 33.2 H (27.0-32.0) pg MCHC 34.7 (31.0-37.0) g/dL RDW Std Deviation 45.3 (28.0-62.0) fl RDW Coeff of [place] 13 (11.0-15.0) % Plt Count 438 H (150-400) K/uL MPV 9.30 (7.40-12.00) fL Neut % (Auto) 52.2 (48.0-80.0) % Lymph % (Auto) 33.2 (16.0-40.0) % [place] % (Auto) 12.8 (0.0-15.0) % Eos % (Auto) 1.6 (0.0-7.0) % Baso % (Auto) 0.2 (0.0-1.5) % Neut # (Auto) 2.6 (1.4-5.7) K/uL Lymph # (Auto) 1.7 (0.6-2.4) K/uL [place] # (Auto) 0.6 (0.0-0.8) K/uL Eos # (Auto) 0.1 (0.0-0.7) K/uL Baso # (Auto) 0.0 (0.0-0.1) K/uL Nucleated RBC % 0.0 /100WBC Nucleated RBCs # 0 K/uL Sodium 122 L 126 L (136-145) mmol/L Potassium (3.5-5.1) mmol/L Chloride (98-107) mmol/L Carbon Dioxide (21.0-32.0) mmol/L BUN (7.0-18.0) mg/dL Creatinine (0.6-1.0) mg/dL Est Cr Clr Drug Dosing mL/min Estimated GFR (MDRD) ml/min Glucose (74-106) mg/dL POC Glucose (60-110) mg/dL Calcium (8.5-10.1) mg/dL Magnesium (1.8-2.4) mg/dL Urine Color Urine Appearance Urine pH (5.0-8.0) Ur Specific [place] (1.001-1.035) Urine Protein (NEGATIVE) mg/dL Urine Glucose (UA) (NEGATIVE) mg/dL Urine Ketones (NEGATIVE) mg/dL Urine Occult Blood (NEGATIVE) Urine Nitrite (NEGATIVE) Urine Bilirubin (NEGATIVE) Urine Urobilinogen (<2.0) EU/dL Ur Leukocyte Esterase (NEGATIVE) Urine RBC (0-2/HPF) Urine WBC (0-5/HPF) Ur Epithelial Cells (NONE-FEW) Urine Bacteria (NEGATIVE) 01/13/20 01/13/20 01/13/20 Range/Units 05:42 05:42 06:19 WBC (4.0-11.0) K/uL RBC (4.30-5.90) M/uL Hgb (12.0-16.0) g/dL Hct (36.0-46.0) % MCV (80.0-98.0) fL MCH (27.0-32.0) pg MCHC (31.0-37.0) g/dL RDW Std Deviation (28.0-62.0) fl RDW Coeff of [place] (11.0-15.0) % Plt Count (150-400) K/uL MPV (7.40-12.00) fL Neut % (Auto) (48.0-80.0) % Lymph % (Auto) (16.0-40.0) % [place] % (Auto) (0.0-15.0) % Eos % (Auto) (0.0-7.0) % Baso % (Auto) (0.0-1.5) % Neut # (Auto) (1.4-5.7) K/uL Lymph # (Auto) (0.6-2.4) K/uL [place] # (Auto) (0.0-0.8) K/uL Eos # (Auto) (0.0-0.7) K/uL Baso # (Auto) (0.0-0.1) K/uL Nucleated RBC % /100WBC Nucleated RBCs # K/uL Sodium 131 L (136-145) mmol/L Potassium 3.2 L (3.5-5.1) mmol/L Chloride 94 L (98-107) mmol/L Carbon Dioxide 29.2 (21.0-32.0) mmol/L BUN 8 (7.0-18.0) mg/dL Creatinine 0.6 (0.6-1.0) mg/dL Est Cr Clr Drug Dosing 62.42 mL/min Estimated GFR (MDRD) > 60.0 ml/min Glucose 122 H (74-106) mg/dL POC Glucose 117 H (60-110) mg/dL Calcium 8.6 (8.5-10.1) mg/dL Magnesium 1.5 L (1.8-2.4) mg/dL Urine Color Urine Appearance Urine pH (5.0-8.0) Ur Specific [place] (1.001-1.035) Urine Protein (NEGATIVE) mg/dL Urine Glucose (UA) (NEGATIVE) mg/dL Urine Ketones (NEGATIVE) mg/dL Urine Occult Blood (NEGATIVE) Urine Nitrite (NEGATIVE) Urine Bilirubin (NEGATIVE) Urine Urobilinogen (<2.0) EU/dL Ur Leukocyte Esterase (NEGATIVE) Urine RBC (0-2/HPF) Urine WBC (0-5/HPF) Ur Epithelial Cells (NONE-FEW) Urine Bacteria (NEGATIVE) 01/13/20 Range/Units 11:25 WBC (4.0-11.0) K/uL RBC (4.30-5.90) M/uL Hgb (12.0-16.0) g/dL Hct (36.0-46.0) % MCV (80.0-98.0) fL MCH (27.0-32.0) pg MCHC (31.0-37.0) g/dL RDW Std Deviation (28.0-62.0) fl RDW Coeff of [place] (11.0-15.0) % Plt Count (150-400) K/uL MPV (7.40-12.00) fL Neut % (Auto) (48.0-80.0) % Lymph % (Auto) (16.0-40.0) % [place] % (Auto) (0.0-15.0) % Eos % (Auto) (0.0-7.0) % Baso % (Auto) (0.0-1.5) % Neut # (Auto) (1.4-5.7) K/uL Lymph # (Auto) (0.6-2.4) K/uL [place] # (Auto) (0.0-0.8) K/uL Eos # (Auto) (0.0-0.7) K/uL Baso # (Auto) (0.0-0.1) K/uL Nucleated RBC % /100WBC Nucleated RBCs # K/uL Sodium (136-145) mmol/L Potassium (3.5-5.1) mmol/L Chloride (98-107) mmol/L Carbon Dioxide (21.0-32.0) mmol/L BUN (7.0-18.0) mg/dL Creatinine (0.6-1.0) mg/dL Est Cr Clr Drug Dosing mL/min Estimated GFR (MDRD) ml/min Glucose (74-106) mg/dL POC Glucose 154 H (60-110) mg/dL Calcium (8.5-10.1) mg/dL Magnesium (1.8-2.4) mg/dL Urine Color Urine Appearance Urine pH (5.0-8.0) Ur Specific [place] (1.001-1.035) Urine Protein (NEGATIVE) mg/dL Urine Glucose (UA) (NEGATIVE) mg/dL Urine Ketones (NEGATIVE) mg/dL Urine Occult Blood (NEGATIVE) Urine Nitrite (NEGATIVE) Urine Bilirubin (NEGATIVE) Urine Urobilinogen (<2.0) EU/dL Ur Leukocyte Esterase (NEGATIVE) Urine RBC (0-2/HPF) Urine WBC (0-5/HPF) Ur Epithelial Cells (NONE-FEW) Urine Bacteria (NEGATIVE) Med Orders - Current: Current Medications Acetaminophen (Tylenol) 650 mg PO Q6H PRN PRN Reason: Pain Ceftriaxone Sodium/Dextrose 1 (gm/ Premix) 50 mls @ 100 mls/hr IV Q24H [facility] Last Admin: 01/12/20 21:20 Dose: 100 mls/hr Insulin Aspart (Novolog) 0 unit SUBCUT TIDAC [facility]; Protocol Last Admin: 01/13/20 11:49 Dose: 1 unit Metoprolol Succinate (Toprol Xl) 50 mg PO DAILY [facility] Last Admin: 01/13/20 08:36 Dose: 50 mg Sodium Chloride (Saline Flush) 2.5 ml FLUSH ASDIRECTED PRN PRN Reason: Keep Vein Open Discontinued Medications Ceftriaxone Sodium (Rocephin) 1 gm IVPUSH Q24H [facility] Last Admin: 01/13/20 07:51 Dose: Not Given Sodium Chloride (Normal Saline) 1,000 mls @ 125 mls/hr IV ASDIRECTED [facility] Last Admin: 01/12/20 16:32 Dose: 125 mls/hr Sodium Chloride (Normal Saline) 1,000 mls @ 100 mls/hr IV ASDIRECTED [facility] Last Admin: 01/13/20 03:00 Dose: 100 mls/hr Magnesium Sulfate 2 gm/ Premix 50 mls @ 50 mls/hr IV ONETIME ONE Stop: 01/13/20 10:57 Last Admin: 01/13/20 10:12 Dose: 50 mls/hr Potassium Chloride (Klor-Con 10) 40 meq PO ONETIME ONE Stop: 01/13/20 07:55 Last Admin: 01/13/20 08:35 Dose: 40 meq - Exam General: Reports: Alert, Oriented, Cooperative, No Acute Distress Lungs: Reports: Clear to Auscultation, Normal Respiratory Effort Cardiovascular: Reports: Regular Rate, Regular Rhythm GI/Abdominal Exam: Normal Bowel Sounds, Soft, Non-Tender Back Exam: Reports: Normal Inspection, Full Range of Motion Neurological: Reports: No New Focal Deficit Psy/Mental Status: Reports: Alert, Normal Affect, Normal Mood
[2020-01-13 15:53] VITALS: BP 122/59; PULSE 55
== END 2020-01-13 17:00 | disposition home or self-care (01) ==
LOC: INTOOBSV 15:27 → MW.MS 15:27
PROVIDERS: ADMIT Emergency Medicine; ATTEND Internal Medicine
DX: E87.1 Hypo-osmolality and hyponatremia (principal); N39.0 Urinary tract infection, site not specified; I10 Essential (primary) hypertension; E11.9 Type 2 diabetes mellitus without complications; Z79.899 Other long term (current) drug therapy; Z79.84 Long term (current) use of oral hypoglycemic drugs
CPT/HCPCS: 36415; 71045; 80048; 81001; 82962; 83735; 84295; 85025; 87086; 96361; 96365; 96367; A9270; G0378; J0696; J1815; J3475; J7030

== ENCOUNTER 2020-01-27 13:49 | Emergency (ER) | payer MEDICARE, OTHER ==
--- NOTE | 2020-01-27 14:09 | EDM.PDOC ---
ED HPI GENERAL MEDICAL PROBLEM - General Chief Complaint: General Stated Complaint: WEAKNESS Time Seen by Provider: 01/27/20 13:51 Source of Information: Reports: Patient, Old Records History Limitations: Reports: No Limitations - History of Present Illness INITIAL COMMENTS - FREE TEXT/NARRATIVE: This patient is an 84-year-old female with a past medical history of atrial fibrillation, status post appendectomy, recent hospitalization for hyponatremia, diverticulosis, hypertension, type 2 diabetes mellitus presenting with generalized weakness. Seen by her primary medical doctor on January 20 for follow- up of hyponatremia. At that time she complained of new low back pain and constipation with abdominal bloating. Her primary doctor ordered a CT scan of the abdomen/pelvis with contrast to follow-up on bulky pelvic adenopathy seen on a CT in early 2018. The CT scan showed a hiatal hernia, and age-indeterminate fracture of the posterior vertebral body of L2, no evidence of retroperitoneal or mesenteric adenopathy or a pelvic mass. Today she presents back to the emergency department complaining of ongoing constipation for several weeks. She is taking daily Senokot but has not been taking daily MiraLAX. She is taking a fiber supplement daily. She is able to pass a small amount of stool but is concerned about ongoing constipation. No report of rectal bleeding or pain, fever, night sweats, or weight loss. She does complain of some mild abdominal distention but denies abdominal pain. No emesis or vomiting. She also complains of several weeks of generalized w eakness. No focal facial or extremity numbness or weakness, no headache, no visual disturbance, difficulty speaking or swallowing, or any other focal neurologic complaints. Back Pain Score (Numeric/FACES): 6 - Related Data Allergies Allergy/AdvReac Type Severity Reaction Status Date / Time No Known Allergies Allergy Verified 01/27/20 14:04 Home Meds: Home Meds Fluticasone Propionate [Flonase] 1 spray NASBOTH DAILY #1 bottle 03/30/17 [Rx] Metoprolol Succinate 50 mg PO DAILY 11/22/18 [History] Ondansetron [Zofran] 4 mg PO Q8H PRN 01/12/20 [History] metFORMIN [Glucophage XR] 1,000 mg PO BIDMEALS 01/12/20 [History] lisinopriL [Lisinopril] 2.5 mg PO DAILY #30 tablet 01/13/20 [Rx] polyethylene glycoL 3350 [MiraLAX] 17 gm PO DAILY 14 Days #14 packet 01/27/20 [Rx] Past Medical History - Past Health History Medical/Surgical History: Denies Medical/Surgical History HEENT History: Reports: Cataract, Impaired Vision Other HEENT History: wears glasses Cardiovascular History: Reports: Hypertension, Other (See Below) Respiratory History: Reports: None, Other (See Below) Gastrointestinal History: Reports: Colon Polyp, Diverticulosis, Other (See Below) Other Gastrointestinal History: occasional heartburn, hx C-diff 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, Recurrent BASKET PERSON History: Reports: Musculoskeletal History: Reports: Arthritis, Fracture, Osteoporosis Other Musculoskeletal History: hx fx hip, fx femur and fx pelvis Neurological History: Reports: None Psychiatric History: Reports: None Endocrine/Metabolic History: Reports: Diabetes, Type II Hematologic History: Reports: None Immunologic History: Reports: None Oncologic (Cancer) History: Reports: None Dermatologic History: Reports: None - Infectious Disease History Infectious Disease History: Reports: Chicken Pox, Measles, Mumps, Rubella, Shingles - Past Surgical History Head Surgeries/Procedures: Reports: None HEENT Surgical History: Reports: Cataract Surgery Cardiovascular Surgical History: Reports: None Respiratory Surgical History: Reports: None GI Surgical History: Reports: Appendectomy, Colonoscopy, Other (See Below) Other GI Surgeries/Procedures: Esophageal hernia repair Female Surgical History: Reports: Section Endocrine Surgical History: Reports: None Musculoskeletal Surgical History: Reports: Arthroscopic Procedure, Hip Replacement Other Musculoskeletal Surgeries/Procedures:: surgical tx for fx femur, surgical tx for fx left hip Dermatological Surgical History: Reports: Skin Biopsy Social & Family History - Family History Family Medical History: Noncontributory - Caffeine Use Caffeine Use: Reports: Soda, Tea - Living Situation & Occupation Living situation: Reports: Alone Occupation: Retired ED ROS GENERAL - Review of Systems Review Of Systems: See Below Constitutional: Reports: Weakness, Fatigue. Denies: Fever, Chills, Diaphoresis, Weight Loss HEENT: Denies: Throat Pain, Vision Change Respiratory: Denies: Shortness of Breath Cardiovascular: Denies: Chest Pain, Edema Endocrine: Reports: Fatigue. Denies: Polydypsia, Polyuria GI/Abdominal: Reports: Constipation, Distension. Denies: Abdominal Pain, Black Stool, Bloody Stool, Diarrhea, Decreased Appetite, Difficulty Swallowing, Hematemesis, Hematochezia, Melena, Nausea, Vomiting : Denies: Dysuria, Flank Pain, Hematuria Musculoskeletal: Reports: Back Pain (Chronic) Skin: Denies: Rash, Lesions Neurological: Denies: Headache, Numbness, Paresthesia, Pre-Existing Deficit, Trouble Speaking, Difficulty Walking, Weakness, Change in Speech, Gait Disturbance Psychiatric: Reports: No Symptoms Hematologic/Lymphatic: Reports: No Symptoms Immunologic: Reports: No Symptoms ED EXAM, GENERAL - Physical Exam Exam: See Below Free Text/Narrative:: Vital signs reviewed. Nursing notes reviewed. Constitutional: Awake, alert, non-distressed. Head: Normocephalic, atraumatic. Eyes: EOMI, conjunctiva normal, no discharge, no scleral icterus. Ears, Nose, Throat: External ears and nose normal, moist oral mucosa. Cardiovascular: 2+ radial pulse, capillary refill less than 2 seconds. Pulmonary: normal work of breathing, no accessory muscle use. Abdomen/GI: Soft, nontender, nondistended, no guarding or rigidity, no masses. Musculoskeletal: No deformities. Integumentary: Appropriate color for ethnicity, warm, dry, no pallor or jaundice, no rash. Neurologic: Alert, answering questions appropriately, normal speech, no facial droop, moving all extremities well. Awake, alert, and oriented x3. No facial droop or dysarthria. No pronator drift. Normal [id number]. 5/5 strength in all extremities. Sensation intact to light touch x4. Able to sit, stand, and ambulate without assistance. Psychiatric: Appropriate mood and affect, normal thought process. EKG INTERPRETATION EKG Interpretation Comments: 12-Lead ECG Interpretation Acquired: 2:19 PM Rhythm: Sinus rhythm Rate: 80 bpm [place]: Normal Intervals: Normal Ectopy: Frequent PACs Ischemic Changes: Subtle nonspecific ST segment depression in leads V4, V3, lead II RV Strain: No obvious RV strain pattern. Interpretation: Abnormal ECG Course - Vital Signs Text/Narrative:: Patient hemodynamically stable, afebrile, well-appearing, looks nontoxic. Differential diagnosis includes but is not limited to: functional constipation, dehydration, electrolyte disturbance, hypothyroidism, bowel obstruction, ileus, colorectal malignancy, acute coronary syndrome, anemia, structural cardiac problem, infection, dehydration, etc. Abdominal x-ray series shows a nonobstructive bowel gas pattern. Labs show mild leukocytosis, mild normocytic anemia, mild thrombocytosis. Mild hypokalemia. Negative troponin, normal TSH. Her twelve-lead EKG shows some nonspecific ST segment depression in the precordial leads but she does not have any chest discomfort or shortness of breath. We rechecked the EKG a second time, and she showed no dynamic changes. Low suspicion for bowel obstruction given lack of abdominal pain, lack of vomiting, stable vital signs, soft abdomen which does not appear distended on exam. Given dietary instructions to address mild hypokalemia, will have her recheck this with her primary doctor in the next few weeks. I have for treatment options including emergency department enema versus home treatment with polyethylene glycol solution, patient opts for treatment with a saline enema. Patient was able to void stool after the enema. She felt better and appeared more comfortable. She requested a lidocaine patch for chronic back pain which we applied. Plan: Patient is stable to discharge home with outpatient primary care follow- up. Will prescribe MiraLAX and patient was given instructions about how to take this. We will have her continue her Senokot, fiber supplements, and take plenty of fluids by mouth. I instructed her that she needed to follow-up with her primary doctor for her abnormal EKG. Strict emergency department return precautions were provided, patient indicated understanding. All questions were answered prior to departure. Discharged in good condition. Last Recorded V/S: Last Vital Signs Temp 36.1 C 01/27/20 17:28 Pulse 70 01/27/20 17:28 Resp 14 01/27/20 14:10 BP 131/64 01/27/20 17:28 Pulse Ox 96 01/27/20 17:28 - Orders/Labs/Meds Orders: Active Orders 24 hr Category Date Time Status Cardiac Monitoring [RC] . DIRECTED Care 01/27/20 13:51 Active EKG 12 Lead [EKG Documentation Completion] [RC] STAT Care 01/27/20 16:21 Active EKG Documentation Completion [RC] STAT Care 01/27/20 13:51 Active Pulse Oximetry [RC] ASDIRECTED Care 01/27/20 13:51 Active Labs: Laboratory Tests 01/27/20 01/27/20 Range/Units 14:35 14:35 WBC 11.43 H (4.0-11.0) K/uL RBC 3.45 L (4.30-5.90) M/uL Hgb 11.7 L (12.0-16.0) g/dL Hct 33.8 L (36.0-46.0) % MCV 98.0 (80.0-98.0) fL MCH 33.9 H (27.0-32.0) pg MCHC 34.6 (31.0-37.0) g/dL RDW Std Deviation 51.7 (28.0-62.0) fl RDW Coeff of [place] 15 (11.0-15.0) % Plt Count 481 H (150-400) K/uL MPV 9.40 (7.40-12.00) fL Neut % (Auto) 87.4 H (48.0-80.0) % Lymph % (Auto) 8.3 L (16.0-40.0) % Clinch % (Auto) 4.2 (0.0-15.0) % Eos % (Auto) 0.1 (0.0-7.0) % Baso % (Auto) 0.0 (0.0-1.5) % Neut # (Auto) 10.0 H (1.4-5.7) K/uL Lymph # (Auto) 1.0 (0.6-2.4) K/uL Clinch # (Auto) 0.5 (0.0-0.8) K/uL Eos # (Auto) 0.0 (0.0-0.7) K/uL Baso # (Auto) 0.0 (0.0-0.1) K/uL Nucleated RBC % 0.0 /100WBC Nucleated RBCs # 0 K/uL Sodium 136 (136-145) mmol/L Potassium 3.3 L (3.5-5.1) mmol/L Chloride 96 L (98-107) mmol/L Carbon Dioxide 26.6 (21.0-32.0) mmol/L BUN 7 (7.0-18.0) mg/dL Creatinine 0.4 L (0.6-1.0) mg/dL Est Cr Clr Drug Dosing 93.64 mL/min Estimated GFR (MDRD) > 60.0 ml/min Glucose 133 H (74-106) mg/dL Calcium 8.3 L (8.5-10.1) mg/dL Total Bilirubin 0.7 (0.2-1.0) mg/dL AST 16 (15-37) IU/L ALT 16 (14-63) IU/L Alkaline Phosphatase 41 L (46-116) U/L Troponin I < 0.050 (0.000-0.056) ng/mL Total Protein 5.8 L (6.4-8.2) g/dL Albumin 3.4 (3.4-5.0) g/dL Globulin 2.4 L (2.6-4.0) g/dL Albumin/Globulin Ratio 1.4 (0.9-1.6) TSH 3rd Generation 0.57 (0.36-3.74) uIU/mL Meds: Medications Discontinued Medications Generic Name Dose Route Start Last Admin Trade Name Freq PRN Reason Stop Dose Admin Lidocaine 700 mg 01/27/20 16:16 01/27/20 16:50 Lidoderm 5% TOP 01/27/20 16:17 700 mg ONETIME ONE Administration Departure - Departure Time of Disposition: 16:17 Disposition: Home, Self-Care 01 Condition: Good Clinical Impression: Acute constipation, Generalized weakness, Hypokalemia, Abnormal ECG Chronic back pain Qualifiers: Back pain location: low back pain Back pain laterality: midline Sciatica presence: without sciatica Qualified Code(s): M54.5 - Low back pain - Discharge Information *PRESCRIPTION DRUG MONITORING PROGRAM REVIEWED*: Not Applicable *COPY OF PRESCRIPTION DRUG MONITORING REPORT IN PATIENT SHRADDHA: Not Applicable Prescriptions: polyethylene glycoL 3350 [MiraLAX] 17 gm PO DAILY 14 Days #14 packet Instructions: Hypokalemia, Constipation, Adult, Potassium Content of Foods, Weakness, Chronic Back Pain Referrals: Kosta Garcia MD [Primary Care Provider] - 1 Week (For follow-up of symptoms.) Forms: ED Department Discharge Additional Instructions: Thank you for choosing the [facility] emergency department in [place] for your medical needs today. It was a pleasure caring for you. You were seen in the emergency department for constipation, generalized weakness, and back pain. You were given an enema here in the emergency department with seem to help. I prescribed some MiraLAX which you can take daily for 1 to 2 weeks to help with the constipation. I want you to continue taking the Senokot as directed, continue taking the fiber supplement, and make sure you are drinking plenty of fluids. Your other laboratory studies look okay at the moment. Follow-up with your doctor the next few days. Your twelve-lead EKG was slightly abnormal. However, without chest discomfort or shortness of breath I do not think you are having a cardiac problem at this moment. I would follow-up with your primary doctor the next few days to have this reevaluated to see if he wants you to see a occupational therapy specialist. Your potassium level was very slightly low. I typically do not prescribe potassium supplementation for a level this low, but you can adjust your dietary intake to help boost your potassium intake. We will provide you with a list of foods that are rich in potassium and your doctor can recheck this in the next few weeks. Please return the emergency department immediately if your symptoms worsen or if you feel worse. The following information is given to patients seen in the emergency department who are being discharged. This information is to outline your options for follow-up care. We provide all patients seen in our emergency department with a follow-up referral. The need for follow-up, as well as the timing and circumstances, are variable depending upon the specifics of your emergency department visit. If you don't have a primary care physician on staff, we will provide you with a referral. We always advise you to contact your personal physician following an emergency department visit to inform them of the circumstance of the visit and for follow-up with them and/or the need for any referrals to a consulting specialist. The emergency department will also refer you to a specialist when appropriate. This referral assures that you have the opportunity for follow-up care with a specialist. All of these measure are taken in an effort to provide you with optimal care, which includes your follow-up. Under all circumstances we always encourage you to contact your private physician who remains a resource for coordinating your care. When calling for follow-up care, please make the office aware that this follow-up is from your recent emergency room visit. If for any reason you are refused follow-up, please contact the [facility] Emergency Department at and asked to speak to the emergency department charge nurse. If you do not have a primary care physician that is caring for you, you can contact these clinics below to set up an appointment to establish care: [facility] [address] [place] [address] [facility] [address] [place] [id number] Sepsis Event Note (ED) - Focused Exam Vital Signs: Vital Signs Temp Pulse Resp BP Pulse Ox 01/27/20 17:28 36.1 C 70 131/64 96 01/27/20 14:10 35.6 C L 80 14 166/70 H 95 - My Orders Last 24 Hours: My Active Orders 01/27/20 13:51 Cardiac Monitoring [RC] . DIRECTED EKG Documentation Completion [RC] STAT Pulse Oximetry [RC] ASDIRECTED 01/27/20 16:21 EKG 12 Lead [EKG Documentation Completion] [RC] STAT - Assessment/Plan Last 24 Hours: My Active Orders 01/27/20 13:51 Cardiac Monitoring [RC] . DIRECTED EKG Documentation Completion [RC] STAT Pulse Oximetry [RC] ASDIRECTED 01/27/20 16:21 EKG 12 Lead [EKG Documentation Completion] [RC] STAT
[2020-01-27 15:15] LABS: BLOOD UREA NITROGEN,BUN 7 mg/dL (7.0-18.0); CARBON DIOXIDE,CO2 26.6 mmol/L (21.0-32.0); CHLORIDE,CL 96 mmol/L (98-107); GLUCOSE RANDOM 133 mg/dL (74-106); POTASSIUM,K 3.3 mmol/L (3.5-5.1); SODIUM,NA 136 mmol/L (136-145)
--- NOTE | 2020-01-27 15:52 | CR ---
Abdomen: Supine and upright views the abdomen were obtained. Scattered gas within small bowel and colon is seen. Findings have more the appearance of an ileus rather than obstruction at this time. Left hip prosthesis is seen. Extensive vascular calcification is noted. No free air is seen. Impression: 1. Findings have more the appearance of ileus rather than obstruction. Follow-up could be considered in 24 hours to further evaluate if clinically needed. 2. Other findings believed to be incidental as noted above. Diagnostic code #3 This report was dictated in MDT
[2020-01-27] MEDS ORDERED: Lidocaine 5% 700 MG Patch TOP ONE (16:16)
[2020-01-27 17:28] VITALS: BP 131/64; PULSE 70
== END 2020-01-27 17:30 | disposition home or self-care (01) ==
LOC: MW.ED 13:49
DX: K59.00 Constipation, unspecified (principal); E87.6 Hypokalemia; G89.29 Other chronic pain; M54.5 Low back pain; R94.31 Abnormal electrocardiogram [ECG] [EKG]; I10 Essential (primary) hypertension; E11.9 Type 2 diabetes mellitus without complications; Z79.899 Other long term (current) drug therapy; Z79.84 Long term (current) use of oral hypoglycemic drugs
CPT/HCPCS: 36415; 74019; 80053; 84443; 84484; 85025; 93005; 99285; A9270; 99283

== ENCOUNTER 2021-02-01 11:25 | Inpatient (IN) | payer MEDICARE, OTHER ==
[2021-02-01] MEDS ORDERED: Sodium Chloride 0.9% 1,000 ML IV ONE (11:45)
--- NOTE | 2021-02-01 11:48 | EDM.PDOC ---
ED HPI GENERAL MEDICAL PROBLEM - General Chief Complaint: General Stated Complaint: DIZZINESS,LOW BLOOD PRESSURE, WEAKNESS Time Seen by Provider: 02/01/21 11:29 Source of Information: Reports: Patient History Limitations: Reports: No Limitations - History of Present Illness INITIAL COMMENTS - FREE TEXT/NARRATIVE: Patient is a 85-year-old female who was brought in today for weakness and dizziness. Patient she is feeling very tired and lightheaded. She does not have any sensation of the room spinning. Patient she woke up about these feelings. Says she has no fever chills she is been tolerating p.o. was normal without any diarrhea or vomiting. She also states that she not take her blood pressure medicine morning because she felt tired a week. 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, IV/IO, Oxygen - Related Data Allergies Allergy/AdvReac Type Severity Reaction Status Date / Time No Known Allergies Allergy Verified 02/01/21 18:35 Home Meds: Home Meds Fluticasone Propionate [Flonase] 1 spray NASBOTH DAILY #1 bottle 03/30/17 [Rx] Metoprolol Succinate 50 mg PO DAILY 11/22/18 [History] Ondansetron [Zofran] 4 mg PO Q8H PRN 01/12/20 [History] lisinopriL [Lisinopril] 2.5 mg PO DAILY #30 tablet 01/13/20 [Rx] polyethylene glycoL 3350 [MiraLAX] 17 gm PO DAILY 14 Days #14 packet 01/27/20 [Rx] Past Medical History - Past Health History Medical/Surgical History: Denies Medical/Surgical History HEENT History: Reports: Cataract, Impaired Vision Other HEENT History: wears glasses Cardiovascular History: Reports: Hypertension, Other (See Below) Respiratory History: Reports: None, Other (See Below) Gastrointestinal History: Reports: Colon Polyp, Diverticulosis, Other (See B elow) Other Gastrointestinal History: occasional heartburn, hx C-diff 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, Recurrent 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: Musculoskeletal History: Reports: Arthritis, Fracture, Osteoporosis Other Musculoskeletal History: hx fx hip, fx femur and fx pelvis Neurological History: Reports: None Psychiatric History: Reports: None Endocrine/Metabolic History: Reports: Diabetes, Type II Hematologic History: Reports: None Immunologic History: Reports: None Oncologic (Cancer) History: Reports: None Dermatologic History: Reports: None - Infectious Disease History Infectious Disease History: Reports: Chicken Pox, Measles, Mumps, Rubella, Shingles - Past Surgical History Head Surgeries/Procedures: Reports: None HEENT Surgical History: Reports: Cataract Surgery Cardiovascular Surgical History: Reports: None Respiratory Surgical History: Reports: None GI Surgical History: Reports: Appendectomy, Colonoscopy, Other (See Below) Other GI Surgeries/Procedures: Esophageal hernia repair Female Surgical History: Reports: Section Endocrine Surgical History: Reports: None Musculoskeletal Surgical History: Reports: Arthroscopic Procedure, Hip Replacement Other Musculoskeletal Surgeries/Procedures:: surgical tx for fx femur, surgical tx for fx left hip Dermatological Surgical History: Reports: Skin Biopsy Social & Family History - Family History Family Medical History: No Pertinent Family History - Tobacco Use Tobacco Use Status *Q: Never Tobacco User Second Hand Smoke Exposure: No - Caffeine Use Caffeine Use: Reports: None - Recreational Drug Use Recreational Drug Use: No - Living Situation & Occupation Living situation: Reports: Alone Occupation: Retired ED ROS GENERAL - Review of Systems Review Of Systems: See Below Constitutional: Reports: Weakness HEENT: Reports: No Symptoms Respiratory: Reports: No Symptoms Cardiovascular: Reports: No Symptoms Endocrine: Reports: No Symptoms GI/Abdominal: Reports: No Symptoms : Reports: No Symptoms Musculoskeletal: Reports: No Symptoms Skin: Reports: No Symptoms Neurological: Reports: No Symptoms Psychiatric: Reports: No Symptoms Hematologic/Lymphatic: Reports: No Symptoms Immunologic: Reports: No Symptoms ED EXAM, GENERAL - Physical Exam Exam: See Below Exam Limited By: No Limitations General Appearance: Alert, WD/WN Eye Exam: Bilateral Eye: EOMI Respiratory/Chest: No Respiratory Distress, Lungs Clear, Normal Breath Sounds Cardiovascular: Normal Peripheral Pulses, Regular Rate, Rhythm GI/Abdominal: Normal Bowel Sounds, Soft, Non-Tender Extremities: Normal Inspection Neurological: Alert, Oriented #1 Interpretation EKG Date: 02/01/21 Time: 11:28 Rhythm: NSR Rate (Beats/Min): 87 ST-T: Normal Course - Vital Signs Last Recorded V/S: Last Vital Signs Temp 97.8 F 02/01/21 18:15 Pulse 72 02/01/21 18:15 Resp 18 02/01/21 18:15 BP 93/57 L 02/01/21 18:15 Pulse Ox 94 L 02/01/21 18:15 - Orders/Labs/Meds Orders: Active Orders 24 hr Category Date Time Status Patient Status [ADT] Routine ADT 02/01/21 14:56 Active Notify Provider Consults [RC] ASDIRECTED Care 02/01/21 14:57 Active Consult to Physician [CONS] Stat Cons 02/01/21 14:56 Active Guaiac [OCCULT BLOOD DIAGNOSTIC] [OP] Stat Lab 02/01/21 13:15 Ordered HAPTOGLOBIN [REF] Stat Lab 02/01/21 15:35 Received RED BLOOD CELLS LP [BBK] Stat Lab 02/01/21 13:43 Results TYPE AND SCREEN [BBK] Stat Lab 02/01/21 13:43 Results Lactated Ringers [Ringers, Lactated] 1,000 ml Med 02/01/21 14:15 Active IV ASDIRECTED Transfuse RBC [Transfuse Red Blood Cells] [COMM] Stat Oth 02/01/21 13:17 Order ed Medication Orders Acetaminophen (Acetaminophen 325 Mg Tab) 650 mg PO Q4H PRN PRN Reason: Pain (Mild 1-3)/fever Lactated Ringer's (Ringers, Lactated) 1,000 mls @ 150 mls/hr IV ASDIRECTED [facility] Last Admin: 02/01/21 14:30 Dose: 150 mls/hr Documented by: PAULA Magnesium Sulfate 2 gm/ Premix 50 mls @ 12.5 mls/hr IV ONETIME ONE Stop: 02/01/21 20:47 Pantoprazole Sodium 40 mg/ (Sodium Chloride) 10 mls @ 300 mls/hr IV Q12HR [facility] Ondansetron HCl (Ondansetron 4 Mg/2 Ml Sdv) 4 mg IVPUSH Q4H PRN PRN Reason: Nausea Sodium Chloride (Sodium Chloride 0.9% 2.5 Ml Syringe) 2.5 ml FLUSH ASDIRECTED PRN PRN Reason: Keep Vein Open Sodium Phosphate (Phosphorus #1 250 Mg Tab) 250 mg PO QID [facility] Last Admin: 02/01/21 18:33 Dose: 250 mg Documented by: MARIAM Labs: Laboratory Tests 02/01/21 02/01/21 02/01/21 Range/Units 12:10 12:10 12:10 WBC 13.32 H (4.0-11.0) K/uL RBC 2.06 L (4.30-5.90) M/uL Hgb 7.1 L (12.0-16.0) g/dL Hct 20.8 L (36.0-46.0) % MCV 101.0 H (80.0-98.0) fL MCH 34.5 H (27.0-32.0) pg MCHC 34.1 (31.0-37.0) g/dL RDW Std Deviation 52.0 (28.0-62.0) fl RDW Coeff of Marimar 14 (11.0-15.0) % Plt Count 364 (150-400) K/uL MPV 10.30 (7.40-12.00) fL Neut % (Auto) 91.7 H (48.0-80.0) % Lymph % (Auto) 4.1 L (16.0-40.0) % Lewis % (Auto) 4.2 (0.0-15.0) % Eos % (Auto) 0.0 (0.0-7.0) % Baso % (Auto) 0.0 (0.0-1.5) % Neut # (Auto) 12.2 H (1.4-5.7) K/uL Lymph # (Auto) 0.5 L (0.6-2.4) K/uL Lewis # (Auto) 0.6 (0.0-0.8) K/uL Eos # (Auto) 0.0 (0.0-0.7) K/uL Baso # (Auto) 0.0 (0.0-0.1) K/uL Nucleated RBC % 0.1 /100WBC Nucleated RBCs # 0 K/uL Smear Path Review Absolute Retic (20-80) K/uL Percent Retic (0.5-1.5) % Immature Retic Fraction % Sodium 134 L (136-145) mmol/L Potassium 4.4 (3.5-5.1) mmol/L Chloride 104 (98-107) mmol/L Carbon Dioxide 20.9 L (21.0-32.0) mmol/L BUN 42 H (7.0-18.0) mg/dL Creatinine 0.6 (0.6-1.0) mg/dL Est Cr Clr Drug Dosing 62.64 mL/min Estimated GFR (MDRD) > 60.0 ml/min Glucose 180 H (74-106) mg/dL Lactic Acid 3.3 H* (0.4-2.0) mmol/L Calcium 8.5 (8.5-10.1) mg/dL Phosphorus 2.3 L (2.6-4.7) mg/dL Magnesium 1.7 L (1.8-2.4) mg/dL Iron (50-175) ug/dL TIBC (250-450) ug/dL % Saturation (20-55) % Transferrin Ferritin (8-252) ng/mL Total Bilirubin 0.4 (0.2-1.0) mg/dL Direct Bilirubin (0.0-0.5) mg/dL Indirect Bilirubin AST 14 L (15-37) IU/L ALT 10 L (14-63) IU/L Alkaline Phosphatase 31 L (46-116) U/L Lactate Dehydrogenase (81-234) U/L Creatine Kinase 36 (26-308) U/L Troponin I < 0.050 (0.000-0.056) ng/mL Total Protein 4.8 L (6.4-8.2) g/dL Albumin 2.8 L (3.4-5.0) g/dL Globulin 2.0 L (2.6-4.0) g/dL Albumin/Globulin Ratio 1.4 (0.9-1.6) Lipase 57 L (73-393) U/L Vitamin B12 (193-986) pg/mL Folate (8.60-58.90) ng/mL SARS-CoV-2 RNA (FARIDEH) (NEGATIVE) Blood Type Antibody Screen Crossmatch 02/01/21 02/01/21 02/01/21 Range/Units 12:10 12:10 12:10 WBC (4.0-11.0) K/uL RBC (4.30-5.90) M/uL Hgb (12.0-16.0) g/dL Hct (36.0-46.0) % MCV (80.0-98.0) fL MCH (27.0-32.0) pg MCHC (31.0-37.0) g/dL RDW Std Deviation (28.0-62.0) fl RDW Coeff of Marimar (11.0-15.0) % Plt Count (150-400) K/uL MPV (7.40-12.00) fL Neut % (Auto) (48.0-80.0) % Lymph % (Auto) (16.0-40.0) % Lewis % (Auto) (0.0-15.0) % Eos % (Auto) (0.0-7.0) % Baso % (Auto) (0.0-1.5) % Neut # (Auto) (1.4-5.7) K/uL Lymph # (Auto) (0.6-2.4) K/uL Lewis # (Auto) (0.0-0.8) K/uL Eos # (Auto) (0.0-0.7) K/uL Baso # (Auto) (0.0-0.1) K/uL Nucleated RBC % /100WBC Nucleated RBCs # K/uL Smear Path Review Absolute Retic (20-80) K/uL Percent Retic (0.5-1.5) % Immature Retic Fraction % Sodium (136-145) mmol/L Potassium (3.5-5.1) mmol/L Chloride (98-107) mmol/L Carbon Dioxide (21.0-32.0) mmol/L BUN (7.0-18.0) mg/dL Creatinine (0.6-1.0) mg/dL Est Cr Clr Drug Dosing mL/min Estimated GFR (MDRD) ml/min Glucose (74-106) mg/dL Lactic Acid (0.4-2.0) mmol/L Calcium (8.5-10.1) mg/dL Phosphorus (2.6-4.7) mg/dL Magnesium (1.8-2.4) mg/dL Iron 102 (50-175) ug/dL TIBC 185 L (250-450) ug/dL % Saturation 55.14 H (20-55) % Transferrin 129.5 Ferritin 378 H (8-252) ng/mL Total Bilirubin 0.4 (0.2-1.0) mg/dL Direct Bilirubin 0.10 (0.0-0.5) mg/dL Indirect Bilirubin 0.30 AST (15-37) IU/L ALT (14-63) IU/L Alkaline Phosphatase (46-116) U/L Lactate Dehydrogenase 549 H (81-234) U/L Creatine Kinase (26-308) U/L Troponin I (0.000-0.056) ng/mL Total Protein (6.4-8.2) g/dL Albumin (3.4-5.0) g/dL Globulin (2.6-4.0) g/dL Albumin/Globulin Ratio (0.9-1.6) Lipase (73-393) U/L Vitamin B12 291 (193-986) pg/mL Folate 16.50 (8.60-58.90) ng/mL SARS-CoV-2 RNA (FARIDEH) (NEGATIVE) Blood Type Antibody Screen Crossmatch 02/01/21 02/01/21 02/01/21 Range/Units 13:10 13:43 13:43 WBC (4.0-11.0) K/uL RBC (4.30-5.90) M/uL Hgb (12.0-16.0) g/dL Hct (36.0-46.0) % MCV (80.0-98.0) fL MCH (27.0-32.0) pg MCHC (31.0-37.0) g/dL RDW Std Deviation (28.0-62.0) fl RDW Coeff of Marimar (11.0-15.0) % Plt Count (150-400) K/uL MPV (7.40-12.00) fL Neut % (Auto) (48.0-80.0) % Lymph % (Auto) (16.0-40.0) % Lewis % (Auto) (0.0-15.0) % Eos % (Auto) (0.0-7.0) % Baso % (Auto) (0.0-1.5) % Neut # (Auto) (1.4-5.7) K/uL Lymph # (Auto) (0.6-2.4) K/uL Lewis # (Auto) (0.0-0.8) K/uL Eos # (Auto) (0.0-0.7) K/uL Baso # (Auto) (0.0-0.1) K/uL Nucleated RBC % /100WBC Nucleated RBCs # K/uL Smear Path Review SENT TO PATHOLOGY Absolute Retic (20-80) K/uL Percent Retic (0.5-1.5) % Immature Retic Fraction % Sodium (136-145) mmol/L Potassium (3.5-5.1) mmol/L Chloride (98-107) mmol/L Carbon Dioxide (21.0-32.0) mmol/L BUN (7.0-18.0) mg/dL Creatinine (0.6-1.0) mg/dL Est Cr Clr Drug Dosing mL/min Estimated GFR (MDRD) ml/min Glucose (74-106) mg/dL Lactic Acid (0.4-2.0) mmol/L Calcium (8.5-10.1) mg/dL Phosphorus (2.6-4.7) mg/dL Magnesium (1.8-2.4) mg/dL Iron (50-175) ug/dL TIBC (250-450) ug/dL % Saturation (20-55) % Transferrin Ferritin (8-252) ng/mL Total Bilirubin (0.2-1.0) mg/dL Direct Bilirubin (0.0-0.5) mg/dL Indirect Bilirubin AST (15-37) IU/L ALT (14-63) IU/L Alkaline Phosphatase (46-116) U/L Lactate Dehydrogenase (81-234) U/L Creatine Kinase (26-308) U/L Troponin I (0.000-0.056) ng/mL Total Protein (6.4-8.2) g/dL Albumin (3.4-5.0) g/dL Globulin (2.6-4.0) g/dL Albumin/Globulin Ratio (0.9-1.6) Lipase (73-393) U/L Vitamin B12 (193-986) pg/mL Folate (8.60-58.90) ng/mL SARS-CoV-2 RNA (FARIDEH) NEGATIVE (NEGATIVE) Blood Type A POSITIVE Antibody Screen NEGATIVE Crossmatch See Detail 02/01/21 Range/Units 14:56 WBC (4.0-11.0) K/uL RBC 2.06 L (4.30-5.90) M/uL Hgb (12.0-16.0) g/dL Hct (36.0-46.0) % MCV (80.0-98.0) fL MCH (27.0-32.0) pg MCHC (31.0-37.0) g/dL RDW Std Deviation (28.0-62.0) fl RDW Coeff of Marimar (11.0-15.0) % Plt Count (150-400) K/uL MPV (7.40-12.00) fL Neut % (Auto) (48.0-80.0) % Lymph % (Auto) (16.0-40.0) % Lewis % (Auto) (0.0-15.0) % Eos % (Auto) (0.0-7.0) % Baso % (Auto) (0.0-1.5) % Neut # (Auto) (1.4-5.7) K/uL Lymph # (Auto) (0.6-2.4) K/uL Lewis # (Auto) (0.0-0.8) K/uL Eos # (Auto) (0.0-0.7) K/uL Baso # (Auto) (0.0-0.1) K/uL Nucleated RBC % /100WBC Nucleated RBCs # K/uL Smear Path Review Absolute Retic 27.80 (20-80) K/uL Percent Retic 1.4 (0.5-1.5) % Immature Retic Fraction 9 % Sodium (136-145) mmol/L Potassium (3.5-5.1) mmol/L Chloride (98-107) mmol/L Carbon Dioxide (21.0-32.0) mmol/L BUN (7.0-18.0) mg/dL Creatinine (0.6-1.0) mg/dL Est Cr Clr Drug Dosing mL/min Estimated GFR (MDRD) ml/min Glucose (74-106) mg/dL Lactic Acid (0.4-2.0) mmol/L Calcium (8.5-10.1) mg/dL Phosphorus (2.6-4.7) mg/dL Magnesium (1.8-2.4) mg/dL Iron (50-175) ug/dL TIBC (250-450) ug/dL % Saturation (20-55) % Transferrin Ferritin (8-252) ng/mL Total Bilirubin (0.2-1.0) mg/dL Direct Bilirubin (0.0-0.5) mg/dL Indirect Bilirubin AST (15-37) IU/L ALT (14-63) IU/L Alkaline Phosphatase (46-116) U/L Lactate Dehydrogenase (81-234) U/L Creatine Kinase (26-308) U/L Troponin I (0.000-0.056) ng/mL Total Protein (6.4-8.2) g/dL Albumin (3.4-5.0) g/dL Globulin (2.6-4.0) g/dL Albumin/Globulin Ratio (0.9-1.6) Lipase (73-393) U/L Vitamin B12 (193-986) pg/mL Folate (8.60-58.90) ng/mL SARS-CoV-2 RNA (FARIDEH) (NEGATIVE) Blood Type Antibody Screen Crossmatch Meds: Medications Generic Name Dose Route Start Last Admin Trade Name Freq PRN Reason Stop Dose Admin Acetaminophen 650 mg 02/01/21 16:29 Acetaminophen 325 Mg Tab PO Q4H PRN Pain (Mild 1-3)/fever Lactated Ringer's 1,000 mls @ 150 mls/hr 02/01/21 14:15 02/01/21 14:30 Ringers, Lactated IV 150 mls/hr ASDIRECTED CARLY Administration Magnesium Sulfate 2 gm/ Premix 50 mls @ 12.5 mls/hr 02/01/21 16:48 IV 02/01/21 20:47 ONETIME ONE Pantoprazole Sodium 40 mg/ 10 mls @ 300 mls/hr 02/01/21 21:00 Sodium Chloride IV Q12HR CARLY Ondansetron HCl 4 mg 02/01/21 16:29 Ondansetron 4 Mg/2 Ml Sdv IVPUSH Q4H PRN Nausea Sodium Chloride 2.5 ml 02/01/21 16:29 Sodium Chloride 0.9% 2.5 Ml Syringe FLUSH ASDIRECTED PRN Keep Vein Open Sodium Phosphate 250 mg 02/01/21 18:00 02/01/21 18:33 Phosphorus #1 250 Mg Tab PO 250 mg QID CARLY Administration Discontinued Medications Generic Name Dose Route Start Last Admin Trade Name Freq PRN Reason Stop Dose Admin Sodium Chloride 1,000 mls @ 999 mls/hr 02/01/21 11:45 02/01/21 11:48 Normal Saline IV 02/01/21 12:45 999 mls/hr .BOLUS ONE Administration Pantoprazole Sodium 80 mg/ 20 mls @ 420 mls/hr 02/01/21 14:42 02/01/21 16:00 Sodium Chloride IVPUSH 02/01/21 14:44 420 mls/hr ONETIME ONE Administration Sodium Chloride Confirm 02/01/21 16:02 02/01/21 16:06 Normal Saline Administered 02/01/21 16:03 Not Given Dose 20 mls @ as directed .ROUTE .STK-MED ONE Pantoprazole Sodium Confirm 02/01/21 15:59 02/01/21 16:03 Pantoprazole 40 Mg Vial Administered 02/01/21 16:00 Not Given Dose 80 mg .ROUTE .STK-MED ONE - Re-Assessments/Exams Free Text/Narrative Re-Assessment/Exam: 02/01/21 18:40 Patient likely has GI bleed is guaiac positive. We will give 1 unit of RBCs in the ED the blood pressure remains normal patient will be okay to be admitted to the floor. Departure - Departure Time of Disposition: 18:40 Disposition: Admitted As Inpatient 68 Condition: Good Clinical Impression: GI bleed - Discharge Information Critical Care Note - Critical Care Note Total Time (mins): 55 Comments: Critical Care Procedure Note Authorized and Performed by: Dr. Frias Total critical care time: Approximately Due to a high probability of clinically significant, life threatening deterioration, the patient required my highest level of preparedness to intervene emergently and I personally spent this critical care time directly and personally managing the patient. This critical care time included obtaining a history; examining the patient; pulse oximetry; ordering and review of studies; arranging urgent treatment with development of a management plan; evaluation of patient's response to treatment; frequent reassessment; and, discussions with other providers. This critical care time was performed to assess and manage the high probability of imminent, life-threatening deterioration that could result in multi-organ failure. It was exclusive of separately billable procedures and treating other patients and teaching time. Sepsis Event Note (ED) - Evaluation Sepsis Screening Result: No Definite Risk - Focused Exam Vital Signs: Vital Signs Temp Pulse Resp BP Pulse Ox 02/01/21 14:35 98.2 F 70 20 109/49 L 97 02/01/21 13:50 98.0 F 72 18 97/45 L 99 02/01/21 13:00 98.2 F 70 18 106/48 L 98 02/01/21 12:38 98.0 F 72 18 101/64 98 02/01/21 11:43 97.0 F 68 18 100/54 L 100 02/01/21 11:33 96.8 F L 68 16 92/58 L 86 L - My Orders Last 24 Hours: My Active Orders 02/01/21 13:15 Guaiac [OCCULT BLOOD DIAGNOSTIC] [OP] Stat 02/01/21 13:17 Transfuse RBC [Transfuse Red Blood Cells] [COMM] Stat 02/01/21 13:43 RED BLOOD CELLS LP [BBK] Stat TYPE AND SCREEN [BBK] Stat 02/01/21 14:56 Patient Status [ADT] Routine Consult to Physician [CONS] Stat 02/01/21 14:57 Notify Provider Consults [RC] ASDIRECTED - Assessment/Plan Last 24 Hours: My Active Orders 02/01/21 13:15 Guaiac [OCCULT BLOOD DIAGNOSTIC] [OP] Stat 02/01/21 13:17 Transfuse RBC [Transfuse Red Blood Cells] [COMM] Stat 02/01/21 13:43 RED BLOOD CELLS LP [BBK] Stat TYPE AND SCREEN [BBK] Stat 02/01/21 14:56 Patient Status [ADT] Routine Consult to Physician [CONS] Stat 02/01/21 14:57 Notify Provider Consults [RC] ASDIRECTED Plan: Patient is a 85-year-old female presents today for weakness and fatigue. Look to rule out any infections with obtain UA labs provide IV fluids and reassess.
[2021-02-01 12:53] LABS: BLOOD UREA NITROGEN,BUN 42 mg/dL (7.0-18.0); CARBON DIOXIDE,CO2 20.9 mmol/L (21.0-32.0); CHLORIDE,CL 104 mmol/L (98-107); GLUCOSE RANDOM 180 mg/dL (74-106); LIPASE 57 U/L (73-393); POTASSIUM,K 4.4 mmol/L (3.5-5.1); SODIUM,NA 134 mmol/L (136-145)
--- NOTE | 2021-02-01 12:56 | CR ---
INDICATION: Weakness TECHNIQUE: Chest 2 views COMPARISON: January 12, 2020 FINDINGS: Cardiovascular and mediastinum: Heart size and vasculature are normal in caliber and appearance. Unchanged moderate size hiatal hernia. Lungs and pleural spaces: Lungs are clear. No sign of infiltrate or mass. No sign of pleural effusion. No pneumothorax. 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 IMPRESSION: No acute findings and no significant changes from the prior exam. Dictated by Thierno Smith MD @ 02/01/2021 12:55:[address] Thierno Smith @ Feb 01 2021 12:55PM
[2021-02-01] MEDS: Lactated Ringers 1,000 ML IV SCH (14:30)
[2021-02-01] MEDS ORDERED: Pantoprazole 80 MG in Sodium Chloride 0.9% 20 ML IVPUSH ONE (14:42)
[2021-02-01 15:20] LABS: BILIRUBIN INDIRECT 0.3
--- NOTE | 2021-02-01 15:42 | PCM.HP.2 ---
H&P History of Present Illness - General Date of Service: 02/01/21 Admit Problem/Dx: Admission Diagnosis/Problem Admission Diagnosis/Problem GI bleed not requiring more than 4 units of blood in 24 hours, ICU, or surgery Source of Information: Patient History Limitations: Reports: No Limitations - History of Present Illness Initial Comments - Free Text/Narative: this 85-year-old female with past medical history of HTN paroxysmal A. fib diverticulosis DM type II presented to the ER today with complaints of weakness and dizziness. She reports that she has been feeling very tired and lightheaded. She denies any sensation of the room spinning. She reports that she woke up with the symptoms. She denies any fevers chills chest pain shortn ess of breath. She did denies any abdominal pain nausea vomiting diarrhea. She did report mild heartburn overnight. She reports she had been taking ibuprofen or Aleve intermittently over the last couple weeks for some back pain. She denies any black or bloody bowel movements, though she does not pay very close attention and has not noticed any change in her bowel habits recently. She reports that she has been eating and drinking well at home. She reports that she did not take her blood pressure medication this morning as she felt tired and weak. She reports that she had a colonoscopy a couple years ago and was told she had a stricture in her left side of her colon along with diverticu losis. She denies any history of EGD that she is aware of. She reports sinus congestion which she felt was the cause of her dizziness initially. She denies any tobacco use no alcohol use no recreational drug use. She has no history of CAD no MN or CVA. In the ER mild leukocytosis noted at 13,000 RBC 2.06 hemoglobin 7.1 hematocrit 20.8. Platelet count 364,000 sodium 134, potassium 4.4 bicarb 20.9 BUN 42 creatinine 0.6. Glucose 180 lactic acid elevated at 3.3. Phos 2.3 magnesium 1.7. Total bilirubin 0.4 AST 14 ALT 10 alk phos 31 troponin negative lipase 57. Covid swab negative chest x-ray in the ER obtained reveals no acute cardiopulmonary process. Hemoccult done in the ER was noted to be positive but had brown stool. Patient denies any melanotic stools or bloody stools. Vitals in the ER revealed softer blood pressures 92/58 on admission which did improve to 100 over 50s to 60s. Heart rate stable 60s to 70s. Patient afebrile. Patient noted to be hypoxic on arrival 86% on room air. She was placed on 4 L oxygen and sats improved to 100%. Patient given 1 L normal saline bolus along with Protonix. She was also started on [address] Obregon consulted in the ER and would recommend EGD when patient is medically stable. EKG in the ER normal sinus rhythm rate [address]-T wave changes. - Related Data Allergies/Adverse Reactions: Allergies Allergy/AdvReac Type Severity Reaction Status Date / Time No Known Allergies Allergy Verified 02/01/21 11:38 Home Medications: Home Meds Fluticasone Propionate [Flonase] 1 spray NASBOTH DAILY #1 bottle 03/30/17 [Rx] Metoprolol Succinate 50 mg PO DAILY 11/22/18 [History] Ondansetron [Zofran] 4 mg PO Q8H PRN 01/12/20 [History] lisinopriL [Lisinopril] 2.5 mg PO DAILY #30 tablet 01/13/20 [Rx] polyethylene glycoL 3350 [MiraLAX] 17 gm PO DAILY 14 Days #14 packet 01/27/20 [Rx] Past Medical History - Past Health History Medical/Surgical History: Denies Medical/Surgical History HEENT History: Reports: Cataract, Impaired Vision Other HEENT History: wears glasses Cardiovascular History: Reports: Hypertension, Other (See Below) Respiratory History: Reports: None, Other (See Below) Gastrointestinal History: Reports: Colon Polyp, Diverticulosis, Other (See Below) Other Gastrointestinal History: occasional heartburn, hx C-diff 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, Recurrent OCCUPATIONAL THERAPIST PER DIEM History: Reports: Musculoskeletal History: Reports: Arthritis, Fracture, Osteoporosis Other Musculoskeletal History: hx fx hip, fx femur and fx pelvis Neurological History: Reports: None Psychiatric History: Reports: None Endocrine/Metabolic History: Reports: Diabetes, Type II Hematologic History: Reports: None Immunologic History: Reports: None Oncologic (Cancer) History: Reports: None Dermatologic History: Reports: None - Infectious Disease History Infectious Disease History: Reports: Chicken Pox, Measles, Mumps, Rubella, Shingles - Past Surgical History Head Surgeries/Procedures: Reports: None HEENT Surgical History: Reports: Cataract Surgery Cardiovascular Surgical History: Reports: None Respiratory Surgical History: Reports: None GI Surgical History: Reports: Appendectomy, Colonoscopy, Other (See Below) Other GI Surgeries/Procedures: Esophageal hernia repair Female Surgical History: Reports: Section Endocrine Surgical History: Reports: None Musculoskeletal Surgical History: Reports: Arthroscopic Procedure, Hip Replacement Other Musculoskeletal Surgeries/Procedures:: surgical tx for fx femur, surgical tx for fx left hip Dermatological Surgical History: Reports: Skin Biopsy Social & Family History - Family History Family Medical History: No Pertinent Family History - Tobacco Use Tobacco Use Status *Q: Never Tobacco User Second Hand Smoke Exposure: No - Caffeine Use Caffeine Use: Reports: None - Recreational Drug Use Recreational Drug Use: No - Living Situation & Occupation Living situation: Reports: Alone Occupation: Retired H&P Review of Systems - Review of Systems: Review Of Systems: See Below General: Reports: Weakness (Generalized), Fatigue. Denies: Fever, Chills HEENT: Reports: Sinus Congestion, Vertigo. Denies: Post Nasal Drip Pulmonary: Reports: No Symptoms. Denies: Shortness of Breath, Pleuritic Chest Pain, Cough, Sputum Cardiovascular: Reports: Lightheadedness. Denies: Chest Pain, Palpitations, Syncope Gastrointestinal: Reports: Other (Heartburn noticed overnight). Denies: Abdominal Pain, Black Stool, Bloody Stool, Diarrhea, Decreased Appetite, Hematemesis, Melena, Nausea, Vomiting 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: Reports: No Symptoms. Denies: Dysuria, Frequency, Burning Musculoskeletal: Reports: No Symptoms Skin: Reports: No Symptoms Psychiatric: Reports: No Symptoms Neurological: Reports: No Symptoms Hematologic/Lymphatic: Reports: No Symptoms Immunologic: Reports: No Symptoms Exam - Exam Exam: See Below - Vital Signs Vital Signs: Last Vital Signs Temp 98.2 F 02/01/21 14:35 Pulse 70 02/01/21 14:35 Resp 20 02/01/21 14:35 BP 109/49 L 02/01/21 14:35 Pulse Ox 97 02/01/21 14:35 Weight: 63.503 kg - Exam Quality Assessment: Supplemental Oxygen, DVT Prophylaxis (SCDs) General: Alert, Oriented, Cooperative HEENT: Conjunctiva Clear, Posterior Pharynx Clear. No: Mucosa Moist & Cambalache (Oral mucosa pale) Lungs: Clear to Auscultation, Normal Respiratory Effort. No: Decreased Breath Sounds, Crackles, Rhonchi, Wheezing Cardiovascular: Regular Rate, Regular Rhythm, Normal S1, Normal S2. No: Systolic Murmur GI/Abdominal Exam: Normal Bowel Sounds, Soft, Non-Tender, No Distention, No Mass Extremities: Normal Inspection, Normal Range of Motion, Non-Tender, No Pedal Edema Skin: Warm, Dry Neuro Extensive - Mental Status: Alert, Oriented x3, Normal Mood/Affect, Normal Cognition Neuro Extensive - Motor, Sensory, Reflexes: CN II-XII Intact Psychiatric: Alert, Normal Affect, Normal Mood - Patient Data Lab Results Last 24 hrs: Laboratory Results - last 24 hr 02/01/21 02/01/21 02/01/21 Range/Units 12:10 12:10 12:10 WBC 13.32 H (4.0-11.0) K/uL RBC 2.06 L (4.30-5.90) M/uL Hgb 7.1 L (12.0-16.0) g/dL Hct 20.8 L (36.0-46.0) % MCV 101.0 H (80.0-98.0) fL MCH 34.5 H (27.0-32.0) pg MCHC 34.1 (31.0-37.0) g/dL RDW Std Deviation 52.0 (28.0-62.0) fl RDW Coeff of Marimar 14 (11.0-15.0) % Plt Count 364 (150-400) K/uL MPV 10.30 (7.40-12.00) fL Neut % (Auto) 91.7 H (48.0-80.0) % Lymph % (Auto) 4.1 L (16.0-40.0) % [place] % (Auto) 4.2 (0.0-15.0) % Eos % (Auto) 0.0 (0.0-7.0) % Baso % (Auto) 0.0 (0.0-1.5) % Neut # (Auto) 12.2 H (1.4-5.7) K/uL Lymph # (Auto) 0.5 L (0.6-2.4) K/uL [place] # (Auto) 0.6 (0.0-0.8) K/uL Eos # (Auto) 0.0 (0.0-0.7) K/uL Baso # (Auto) 0.0 (0.0-0.1) K/uL Nucleated RBC % 0.1 /100WBC Nucleated RBCs # 0 K/uL Smear Path Review Absolute Retic (20-80) K/uL Percent Retic (0.5-1.5) % Immature Retic Fraction % Sodium 134 L (136-145) mmol/L Potassium 4.4 (3.5-5.1) mmol/L Chloride 104 (98-107) mmol/L Carbon Dioxide 20.9 L (21.0-32.0) mmol/L BUN 42 H (7.0-18.0) mg/dL Creatinine 0.6 (0.6-1.0) mg/dL Est Cr Clr Drug Dosing 62.64 mL/min Estimated GFR (MDRD) > 60.0 ml/min Glucose 180 H (74-106) mg/dL Lactic Acid 3.3 H* (0.4-2.0) mmol/L Calcium 8.5 (8.5-10.1) mg/dL Phosphorus 2.3 L (2.6-4.7) mg/dL Magnesium 1.7 L (1.8-2.4) mg/dL Iron (50-175) ug/dL TIBC (250-450) ug/dL % Saturation (20-55) % Transferrin Ferritin (8-252) ng/mL Total Bilirubin 0.4 (0.2-1.0) mg/dL Direct Bilirubin (0.0-0.5) mg/dL Indirect Bilirubin AST 14 L (15-37) IU/L ALT 10 L (14-63) IU/L Alkaline Phosphatase 31 L (46-116) U/L Lactate Dehydrogenase (81-234) U/L Creatine Kinase 36 (26-308) U/L Troponin I < 0.050 (0.000-0.056) ng/mL Total Protein 4.8 L (6.4-8.2) g/dL Albumin 2.8 L (3.4-5.0) g/dL Globulin 2.0 L (2.6-4.0) g/dL Albumin/Globulin Ratio 1.4 (0.9-1.6) Lipase 57 L (73-393) U/L SARS-CoV-2 RNA (FARIDEH) (NEGATIVE) Blood Type Antibody Screen Crossmatch 02/01/21 02/01/21 02/01/21 Range/Units 12:10 12:10 13:10 WBC (4.0-11.0) K/uL RBC (4.30-5.90) M/uL Hgb (12.0-16.0) g/dL Hct (36.0-46.0) % MCV (80.0-98.0) fL MCH (27.0-32.0) pg MCHC (31.0-37.0) g/dL RDW Std Deviation (28.0-62.0) fl RDW Coeff of [place] (11.0-15.0) % Plt Count (150-400) K/uL MPV (7.40-12.00) fL Neut % (Auto) (48.0-80.0) % Lymph % (Auto) (16.0-40.0) % [place] % (Auto) (0.0-15.0) % Eos % (Auto) (0.0-7.0) % Baso % (Auto) (0.0-1.5) % Neut # (Auto) (1.4-5.7) K/uL Lymph # (Auto) (0.6-2.4) K/uL [place] # (Auto) (0.0-0.8) K/uL Eos # (Auto) (0.0-0.7) K/uL Baso # (Auto) (0.0-0.1) K/uL Nucleated RBC % /100WBC Nucleated RBCs # K/uL Smear Path Review Absolute Retic (20-80) K/uL Percent Retic (0.5-1.5) % Immature Retic Fraction % Sodium (136-145) mmol/L Potassium (3.5-5.1) mmol/L Chloride (98-107) mmol/L Carbon Dioxide (21.0-32.0) mmol/L BUN (7.0-18.0) mg/dL Creatinine (0.6-1.0) mg/dL Est Cr Clr Drug Dosing mL/min Estimated GFR (MDRD) ml/min Glucose (74-106) mg/dL Lactic Acid (0.4-2.0) mmol/L Calcium (8.5-10.1) mg/dL Phosphorus (2.6-4.7) mg/dL Magnesium (1.8-2.4) mg/dL Iron 102 (50-175) ug/dL TIBC 185 L (250-450) ug/dL % Saturation 55.14 H (20-55) % Transferrin 129.5 Ferritin 378 H (8-252) ng/mL Total Bilirubin 0.4 (0.2-1.0) mg/dL Direct Bilirubin 0.10 (0.0-0.5) mg/dL Indirect Bilirubin 0.30 AST (15-37) IU/L ALT (14-63) IU/L Alkaline Phosphatase (46-116) U/L Lactate Dehydrogenase 549 H (81-234) U/L Creatine Kinase (26-308) U/L Troponin I (0.000-0.056) ng/mL Total Protein (6.4-8.2) g/dL Albumin (3.4-5.0) g/dL Globulin (2.6-4.0) g/dL Albumin/Globulin Ratio (0.9-1.6) Lipase (73-393) U/L SARS-CoV-2 RNA (FARIDEH) NEGATIVE (NEGATIVE) Blood Type Antibody Screen Crossmatch 02/01/21 02/01/21 02/01/21 Range/Units 13:43 13:43 14:56 WBC (4.0-11.0) K/uL RBC 2.06 L (4.30-5.90) M/uL Hgb (12.0-16.0) g/dL Hct (36.0-46.0) % MCV (80.0-98.0) fL MCH (27.0-32.0) pg MCHC (31.0-37.0) g/dL RDW Std Deviation (28.0-62.0) fl RDW Coeff of Marimar (11.0-15.0) % Plt Count (150-400) K/uL MPV (7.40-12.00) fL Neut % (Auto) (48.0-80.0) % Lymph % (Auto) (16.0-40.0) % [place] % (Auto) (0.0-15.0) % Eos % (Auto) (0.0-7.0) % Baso % (Auto) (0.0-1.5) % Neut # (Auto) (1.4-5.7) K/uL Lymph # (Auto) (0.6-2.4) K/uL [place] # (Auto) (0.0-0.8) K/uL Eos # (Auto) (0.0-0.7) K/uL Baso # (Auto) (0.0-0.1) K/uL Nucleated RBC % /100WBC Nucleated RBCs # K/uL Smear Path Review SENT TO PATHOLOGY Absolute Retic 27.80 (20-80) K/uL Percent Retic 1.4 (0.5-1.5) % Immature Retic Fraction 9 % Sodium (136-145) mmol/L Potassium (3.5-5.1) mmol/L Chloride (98-107) mmol/L Carbon Dioxide (21.0-32.0) mmol/L BUN (7.0-18.0) mg/dL Creatinine (0.6-1.0) mg/dL Est Cr Clr Drug Dosing mL/min Estimated GFR (MDRD) ml/min Glucose (74-106) mg/dL Lactic Acid (0.4-2.0) mmol/L Calcium (8.5-10.1) mg/dL Phosphorus (2.6-4.7) mg/dL Magnesium (1.8-2.4) mg/dL Iron (50-175) ug/dL TIBC (250-450) ug/dL % Saturation (20-55) % Transferrin Ferritin (8-252) ng/mL Total Bilirubin (0.2-1.0) mg/dL Direct Bilirubin (0.0-0.5) mg/dL Indirect Bilirubin AST (15-37) IU/L ALT (14-63) IU/L Alkaline Phosphatase (46-116) U/L Lactate Dehydrogenase (81-234) U/L Creatine Kinase (26-308) U/L Troponin I (0.000-0.056) ng/mL Total Protein (6.4-8.2) g/dL Albumin (3.4-5.0) g/dL Globulin (2.6-4.0) g/dL Albumin/Globulin Ratio (0.9-1.6) Lipase (73-393) U/L SARS-CoV-2 RNA (FARIDEH) (NEGATIVE) Blood Type A POSITIVE Antibody Screen NEGATIVE Crossmatch See Detail Result Diagrams: 02/01/21 12:10 02/01/21 12:10 Sepsis Event Note - Evaluation Sepsis Screening Result: No Definite Risk - Focused Exam Vital Signs: Vital Signs Temp Pulse Resp BP Pulse Ox 02/01/21 14:35 98.2 F 70 20 109/49 L 97 02/01/21 13:50 98.0 F 72 18 97/45 L 99 02/01/21 13:00 98.2 F 70 18 106/48 L 98 02/01/21 12:38 98.0 F 72 18 101/64 98 02/01/21 11:43 97.0 F 68 18 100/54 L 100 02/01/21 11:33 96.8 F L 68 16 92/58 L 86 L - Problem List (1) Anemia SNOMED Code(s): 593748929 ICD Code: D64.9 - ANEMIA, UNSPECIFIED Status: Acute Current Visit: Yes Qualifiers: Iron deficiency anemia type: chronic blood loss (2) GI bleed SNOMED Code(s): 80799844 ICD Code: K92.2 - GASTROINTESTINAL HEMORRHAGE, UNSPECIFIED Status: Suspected Current Visit: Yes (3) Generalized weakness SNOMED Code(s): 35796550 ICD Code: R53.1 - WEAKNESS Status: Acute Current Visit: No (4) HTN (hypertension) SNOMED Code(s): 63562531 ICD Code: I10 - ESSENTIAL (PRIMARY) HYPERTENSION Status: Chronic Current Visit: Yes Problem List Initiated/Reviewed/Updated: Yes Orders Last 24hrs: Active Orders 24 hr Category Date Time Status Patient Status [ADT] Routine ADT 02/01/21 14:56 Active Notify Provider Consults [RC] ASDIRECTED Care 02/01/21 14:57 Active Consult to Physician [CONS] Stat Cons 02/01/21 14:56 Active FOLIC ACID [CHEM] Routine Lab 02/01/21 14:56 Ordered Guaiac [OCCULT BLOOD DIAGNOSTIC] [OP] Stat Lab 02/01/21 13:15 Ordered HAPTOGLOBIN [REF] Stat Lab 02/01/21 14:56 Ordered RED BLOOD CELLS LP [BBK] Stat Lab 02/01/21 13:43 Results REFLEX LACTIC ACID YES OR NO [CHEM] Routine Lab 02/01/21 12:51 Received TYPE AND SCREEN [BBK] Stat Lab 02/01/21 13:43 Results VITAMIN B12 [CHEM] Routine Lab 02/01/21 14:56 Ordered Lactated Ringers [Ringers, Lactated] 1,000 ml Med 02/01/21 14:15 Active IV ASDIRECTED Transfuse RBC [Transfuse Red Blood Cells] [COMM] Stat Oth 02/01/21 13:17 Ordered Medication Orders Lactated Ringer's (Ringers, Lactated) 1,000 mls @ 150 mls/hr IV ASDIRECTED CARLY Last Admin: 02/01/21 14:30 Dose: 150 mls/hr Documented by: PAULA Assessment/Plan Comment:: This 85-year-old female admitted with symptomatic anemia likely secondary to chronic GI bleed. 1. Suspected GI bleeding Patient noted to be symptomatic with weakness fatigue and hypotension. No tachycardia noted. Transfuse 2 unit of blood Goal hemoglobin 9, repeat hgb 1 hour post transfusion Obtain iron/hemolytic studies Consult Dr. Obrgeon for possible inpatient EGD IV Protonix 40 mg IV twice daily Continue gentle IV fluids Monitor on telemetry Maintain 2 large-bore IVs at all times 2. Hypoxia -Chest x-ray negative Could be related to acute anemia we will continue to monitor closely. 3. Elevated lactic acid Does not appear to be septic likely secondary to tissue hypoxia from hypoxia/hypotension as well as anemia We will repeat to ensure resolution. 4. Hypertension Due to hypotension will hold all antihypertensives at this time. Slowly restart as blood pressure allows VTE prophylaxis: SCDs and ambulation only due to suspected GI bleed and anemia GI prophylaxis: Protonix CODE STATUS: Full code Dispo: 2 to 3 days pending improvement. Consults: Dr. Obregon, general surgery
[2021-02-01] MEDS ORDERED: Pantoprazole 40 MG Vial ONE (15:59)
[2021-02-01] MEDS ORDERED: Sodium Chloride 0.9% 20 ML ONE (16:02)
[2021-02-01] MEDS ORDERED: Sodium Chloride 0.9% 2.5 ML Syringe FLUSH PRN (16:29)
[2021-02-01] MEDS ORDERED: Ondansetron 4 MG/2 ML SDV IVPUSH PRN (16:29)
[2021-02-01] MEDS ORDERED: Magnesium Sulfate/Water 2 GM in Premix Bag 1 BAG IV ONE (16:48)
--- NOTE | 2021-02-01 17:16 | PCM.CONS ---
H&P History of Present Illness - General Date of Service: 02/01/21 Admit Problem/Dx: Admission Diagnosis/Problem Admission Diagnosis/Problem GI bleed not requiring more than 4 units of blood in 24 hours, ICU, or surgery Source of Information: Patient History Limitations: Reports: No Limitations - History of Present Illness Initial Comments - Free Text/Narative: Patient is an 85-year-old female who presented to the emergency room earlier today complaining of decreased energy and feeling weak. Evaluation in the emergency room revealed her to be significantly anemic with a hemoglobin of 7 g. While her stool was brown in color, it was also Hemoccult-positive. She is now being admitted for transfusion and further evaluation. Surgical consultation has been requested for consideration for endoscopic evaluation. Onset of Symptoms: Reports: Today Duration of Symptoms: Reports: Hour(s): Location: Reports: Abdomen Quality: Reports: Ache Severity: Moderate Improves with: Reports: None Worsens with: Reports: None Context: Denies: Sick Contact Associated Symptoms: Denies: Confusion, Fever/Chills, Nausea/Vomiting - Related Data Allergies/Adverse Reactions: Allergies Allergy/AdvReac Type Severity Reaction Status Date / Time No Known Allergies Allergy Verified 02/01/21 11:38 Home Medications: Home Meds Fluticasone Propionate [Flonase] 1 spray NASBOTH DAILY #1 bottle 03/30/17 [Rx] Metoprolol Succinate 50 mg PO DAILY 11/22/18 [History] Ondansetron [Zofran] 4 mg PO Q8H PRN 01/12/20 [History] lisinopriL [Lisinopril] 2.5 mg PO DAILY #30 tablet 01/13/20 [Rx] polyethylene glycoL 3350 [MiraLAX] 17 gm PO DAILY 14 Days #14 packet 01/27/20 [Rx] Past Medical History - Past Health History Medical/Surgical History: Denies Medical/Surgical History HEENT History: Reports: Cataract, Impaired Vision Other HEENT History: wears glasses Cardiovascular History: Reports: Hypertension, Other (See Below) Respiratory History: Reports: None, Other (See Below) Gastrointestinal History: Reports: Colon Polyp, Diverticulosis, Other (See Below) Other Gastrointestinal History: occasional heartburn, hx C-diff 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, 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: Musculoskeletal History: Reports: Arthritis, Fracture, Osteoporosis Other Musculoskeletal History: hx fx hip, fx femur and fx pelvis Neurological History: Reports: None Psychiatric History: Reports: None Endocrine/Metabolic History: Reports: Diabetes, Type II Hematologic History: Reports: None Immunologic History: Reports: None Oncologic (Cancer) History: Reports: None Dermatologic History: Reports: None - Infectious Disease History Infectious Disease History: Reports: Chicken Pox, Measles, Mumps, Rubella, Shingles - Past Surgical History Head Surgeries/Procedures: Reports: None HEENT Surgical History: Reports: Cataract Surgery Cardiovascular Surgical History: Reports: None Respiratory Surgical History: Reports: None GI Surgical History: Reports: Appendectomy, Colonoscopy, Other (See Below) Other GI Surgeries/Procedures: Esophageal hernia repair Female Surgical History: Reports: Section Endocrine Surgical History: Reports: None Musculoskeletal Surgical History: Reports: Arthroscopic Procedure, Hip Replacement Other Musculoskeletal Surgeries/Procedures:: surgical tx for fx femur, surgical tx for fx left hip Dermatological Surgical History: Reports: Skin Biopsy Social & Family History - Family History Family Medical History: No Pertinent Family History - Tobacco Use Tobacco Use Status *Q: Never Tobacco User Second Hand Smoke Exposure: No - Caffeine Use Caffeine Use: Reports: None - Recreational Drug Use Recreational Drug Use: No - Living Situation & Occupation Living situation: Reports: Alone Occupation: Retired H&P Review of Systems - Review of Systems: Review Of Systems: See Below General: Reports: Weakness, Fatigue. Denies: Fever, Chills, Malaise HEENT: Reports: No Symptoms Pulmonary: Denies: Shortness of Breath, Wheezing, Pleuritic Chest Pain Cardiovascular: Denies: Chest Pain, Palpitations, Dyspnea on Exertion Gastrointestinal: Reports: Flatus, Other (Hemoccult-positive stools). Denies: Abdominal Pain, Anorexia, Black Stool, Bloody Stool, Constipation, Diarrhea, Hematemesis, Hematochezia, Melena, Nausea, Vomiting 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: Denies: Dysuria, Frequency, Burning, Pain, Urgency Musculoskeletal: Reports: Back Pain Skin: Denies: Cyanosis, Jaundice, Mottled, Pallor Psychiatric: Denies: Confusion, Depression, Anxiety, Agitation Neurological: Denies: Confusion, Dizziness, Headache Hematologic/Lymphatic: Reports: Anemia. Denies: Easy Bleeding, Easy Bruising Immunologic: Reports: No Symptoms Exam - Exam Exam: See Below - Vital Signs Vital Signs: Last Vital Signs Temp 98.2 F 02/01/21 14:35 Pulse 70 02/01/21 14:35 Resp 20 02/01/21 14:35 BP 109/49 L 02/01/21 14:35 Pulse Ox 97 02/01/21 14:35 Weight: 140 lb - Exam Quality Assessment: Supplemental Oxygen. No: Central Line/PICC, Urinary Catheter General: Alert, Oriented, Cooperative, Mild Distress HEENT: Conjunctiva Clear, Nares Patent, Pupils Equal, Pupils Reactive. No: Scleral Icterus Neck: Supple, Trachea Midline, +2 Carotid Pulse wo Bruit Lungs: Clear to Auscultation, Normal Respiratory Effort. No: Crackles, Rales, Rhonchi, Rub Cardiovascular: Regular Rate, Regular Rhythm. No: Tachycardia, Systolic Murmur, Diastolic Murmur GI/Abdominal Exam: Normal Bowel Sounds, Soft, Non-Tender, No Distention, Hernia. No: Guarding, Rigid, Rebound (Female) Exam: Deferred Rectal (Female) Exam: Heme + Stool, Other (per emergency room) Back Exam: Normal Inspection Extremities: Normal Inspection, Normal Range of Motion, No Pedal Edema Peripheral Pulses: 3+: Posterior Tibial (L), Posterior Tibial (R), Dorsalis Pedis (L), Dorsalis Pedis (R) Skin: Warm, Dry, Intact Neurological: Cranial Nerves Intact Neuro Extensive - Mental Status: Alert, Oriented x3, Normal Mood/Affect, Normal Cognition, Memory Intact Psychiatric: Alert, Normal Affect, Normal Mood - Patient Data Lab Results Last 24 hrs: Laboratory Results - last 24 hr 02/01/21 02/01/21 02/01/21 Range/Units 12:10 12:10 12:10 WBC 13.32 H (4.0-11.0) K/uL RBC 2.06 L (4.30-5.90) M/uL Hgb 7.1 L (12.0-16.0) g/dL Hct 20.8 L (36.0-46.0) % MCV 101.0 H (80.0-98.0) fL MCH 34.5 H (27.0-32.0) pg MCHC 34.1 (31.0-37.0) g/dL RDW Std Deviation 52.0 (28.0-62.0) fl RDW Coeff of Marimar 14 (11.0-15.0) % Plt Count 364 (150-400) K/uL MPV 10.30 (7.40-12.00) fL Neut % (Auto) 91.7 H (48.0-80.0) % Lymph % (Auto) 4.1 L (16.0-40.0) % Spencer % (Auto) 4.2 (0.0-15.0) % Eos % (Auto) 0.0 (0.0-7.0) % Baso % (Auto) 0.0 (0.0-1.5) % Neut # (Auto) 12.2 H (1.4-5.7) K/uL Lymph # (Auto) 0.5 L (0.6-2.4) K/uL Spencer # (Auto) 0.6 (0.0-0.8) K/uL Eos # (Auto) 0.0 (0.0-0.7) K/uL Baso # (Auto) 0.0 (0.0-0.1) K/uL Nucleated RBC % 0.1 /100WBC Nucleated RBCs # 0 K/uL Smear Path Review Absolute Retic (20-80) K/uL Percent Retic (0.5-1.5) % Immature Retic Fraction % Sodium 134 L (136-145) mmol/L Potassium 4.4 (3.5-5.1) mmol/L Chloride 104 (98-107) mmol/L Carbon Dioxide 20.9 L (21.0-32.0) mmol/L BUN 42 H (7.0-18.0) mg/dL Creatinine 0.6 (0.6-1.0) mg/dL Est Cr Clr Drug Dosing 62.64 mL/min Estimated GFR (MDRD) > 60.0 ml/min Glucose 180 H (74-106) mg/dL Lactic Acid 3.3 H* (0.4-2.0) mmol/L Calcium 8.5 (8.5-10.1) mg/dL Phosphorus 2.3 L (2.6-4.7) mg/dL Magnesium 1.7 L (1.8-2.4) mg/dL Iron (50-175) ug/dL TIBC (250-450) ug/dL % Saturation (20-55) % Transferrin Ferritin (8-252) ng/mL Total Bilirubin 0.4 (0.2-1.0) mg/dL Direct Bilirubin (0.0-0.5) mg/dL Indirect Bilirubin AST 14 L (15-37) IU/L ALT 10 L (14-63) IU/L Alkaline Phosphatase 31 L (46-116) U/L Lactate Dehydrogenase (81-234) U/L Creatine Kinase 36 (26-308) U/L Troponin I < 0.050 (0.000-0.056) ng/mL Total Protein 4.8 L (6.4-8.2) g/dL Albumin 2.8 L (3.4-5.0) g/dL Globulin 2.0 L (2.6-4.0) g/dL Albumin/Globulin Ratio 1.4 (0.9-1.6) Lipase 57 L (73-393) U/L Vitamin B12 (193-986) pg/mL Folate (8.60-58.90) ng/mL SARS-CoV-2 RNA (FARIDEH) (NEGATIVE) Blood Type Antibody Screen Crossmatch 02/01/21 02/01/21 02/01/21 Range/Units 12:10 12:10 12:10 WBC (4.0-11.0) K/uL RBC (4.30-5.90) M/uL Hgb (12.0-16.0) g/dL Hct (36.0-46.0) % MCV (80.0-98.0) fL MCH (27.0-32.0) pg MCHC (31.0-37.0) g/dL RDW Std Deviation (28.0-62.0) fl RDW Coeff of Marimar (11.0-15.0) % Plt Count (150-400) K/uL MPV (7.40-12.00) fL Neut % (Auto) (48.0-80.0) % Lymph % (Auto) (16.0-40.0) % Spencer % (Auto) (0.0-15.0) % Eos % (Auto) (0.0-7.0) % Baso % (Auto) (0.0-1.5) % Neut # (Auto) (1.4-5.7) K/uL Lymph # (Auto) (0.6-2.4) K/uL Spencer # (Auto) (0.0-0.8) K/uL Eos # (Auto) (0.0-0.7) K/uL Baso # (Auto) (0.0-0.1) K/uL Nucleated RBC % /100WBC Nucleated RBCs # K/uL Smear Path Review Absolute Retic (20-80) K/uL Percent Retic (0.5-1.5) % Immature Retic Fraction % Sodium (136-145) mmol/L Potassium (3.5-5.1) mmol/L Chloride (98-107) mmol/L Carbon Dioxide (21.0-32.0) mmol/L BUN (7.0-18.0) mg/dL Creatinine (0.6-1.0) mg/dL Est Cr Clr Drug Dosing mL/min Estimated GFR (MDRD) ml/min Glucose (74-106) mg/dL Lactic Acid (0.4-2.0) mmol/L Calcium (8.5-10.1) mg/dL Phosphorus (2.6-4.7) mg/dL Magnesium (1.8-2.4) mg/dL Iron 102 (50-175) ug/dL TIBC 185 L (250-450) ug/dL % Saturation 55.14 H (20-55) % Transferrin 129.5 Ferritin 378 H (8-252) ng/mL Total Bilirubin 0.4 (0.2-1.0) mg/dL Direct Bilirubin 0.10 (0.0-0.5) mg/dL Indirect Bilirubin 0.30 AST (15-37) IU/L ALT (14-63) IU/L Alkaline Phosphatase (46-116) U/L Lactate Dehydrogenase 549 H (81-234) U/L Creatine Kinase (26-308) U/L Troponin I (0.000-0.056) ng/mL Total Protein (6.4-8.2) g/dL Albumin (3.4-5.0) g/dL Globulin (2.6-4.0) g/dL Albumin/Globulin Ratio (0.9-1.6) Lipase (73-393) U/L Vitamin B12 291 (193-986) pg/mL Folate 16.50 (8.60-58.90) ng/mL SARS-CoV-2 RNA (FARIDEH) (NEGATIVE) Blood Type Antibody Screen Crossmatch 02/01/21 02/01/21 02/01/21 Range/Units 13:10 13:43 13:43 WBC (4.0-11.0) K/uL RBC (4.30-5.90) M/uL Hgb (12.0-16.0) g/dL Hct (36.0-46.0) % MCV (80.0-98.0) fL MCH (27.0-32.0) pg MCHC (31.0-37.0) g/dL RDW Std Deviation (28.0-62.0) fl RDW Coeff of Marimar (11.0-15.0) % Plt Count (150-400) K/uL MPV (7.40-12.00) fL Neut % (Auto) (48.0-80.0) % Lymph % (Auto) (16.0-40.0) % Spencer % (Auto) (0.0-15.0) % Eos % (Auto) (0.0-7.0) % Baso % (Auto) (0.0-1.5) % Neut # (Auto) (1.4-5.7) K/uL Lymph # (Auto) (0.6-2.4) K/uL Spencer # (Auto) (0.0-0.8) K/uL Eos # (Auto) (0.0-0.7) K/uL Baso # (Auto) (0.0-0.1) K/uL Nucleated RBC % /100WBC Nucleated RBCs # K/uL Smear Path Review SENT TO PATHOLOGY Absolute Retic (20-80) K/uL Percent Retic (0.5-1.5) % Immature Retic Fraction % Sodium (136-145) mmol/L Potassium (3.5-5.1) mmol/L Chloride (98-107) mmol/L Carbon Dioxide (21.0-32.0) mmol/L BUN (7.0-18.0) mg/dL Creatinine (0.6-1.0) mg/dL Est Cr Clr Drug Dosing mL/min Estimated GFR (MDRD) ml/min Glucose (74-106) mg/dL Lactic Acid (0.4-2.0) mmol/L Calcium (8.5-10.1) mg/dL Phosphorus (2.6-4.7) mg/dL Magnesium (1.8-2.4) mg/dL Iron (50-175) ug/dL TIBC (250-450) ug/dL % Saturation (20-55) % Transferrin Ferritin (8-252) ng/mL Total Bilirubin (0.2-1.0) mg/dL Direct Bilirubin (0.0-0.5) mg/dL Indirect Bilirubin AST (15-37) IU/L ALT (14-63) IU/L Alkaline Phosphatase (46-116) U/L Lactate Dehydrogenase (81-234) U/L Creatine Kinase (26-308) U/L Troponin I (0.000-0.056) ng/mL Total Protein (6.4-8.2) g/dL Albumin (3.4-5.0) g/dL Globulin (2.6-4.0) g/dL Albumin/Globulin Ratio (0.9-1.6) Lipase (73-393) U/L Vitamin B12 (193-986) pg/mL Folate (8.60-58.90) ng/mL SARS-CoV-2 RNA (FARIDEH) NEGATIVE (NEGATIVE) Blood Type A POSITIVE Antibody Screen NEGATIVE Crossmatch See Detail 02/01/21 Range/Units 14:56 WBC (4.0-11.0) K/uL RBC 2.06 L (4.30-5.90) M/uL Hgb (12.0-16.0) g/dL Hct (36.0-46.0) % MCV (80.0-98.0) fL MCH (27.0-32.0) pg MCHC (31.0-37.0) g/dL RDW Std Deviation (28.0-62.0) fl RDW Coeff of Marimar (11.0-15.0) % Plt Count (150-400) K/uL MPV (7.40-12.00) fL Neut % (Auto) (48.0-80.0) % Lymph % (Auto) (16.0-40.0) % Spencer % (Auto) (0.0-15.0) % Eos % (Auto) (0.0-7.0) % Baso % (Auto) (0.0-1.5) % Neut # (Auto) (1.4-5.7) K/uL Lymph # (Auto) (0.6-2.4) K/uL Spencer # (Auto) (0.0-0.8) K/uL Eos # (Auto) (0.0-0.7) K/uL Baso # (Auto) (0.0-0.1) K/uL Nucleated RBC % /100WBC Nucleated RBCs # K/uL Smear Path Review Absolute Retic 27.80 (20-80) K/uL Percent Retic 1.4 (0.5-1.5) % Immature Retic Fraction 9 % Sodium (136-145) mmol/L Potassium (3.5-5.1) mmol/L Chloride (98-107) mmol/L Carbon Dioxide (21.0-32.0) mmol/L BUN (7.0-18.0) mg/dL Creatinine (0.6-1.0) mg/dL Est Cr Clr Drug Dosing mL/min Estimated GFR (MDRD) ml/min Glucose (74-106) mg/dL Lactic Acid (0.4-2.0) mmol/L Calcium (8.5-10.1) mg/dL Phosphorus (2.6-4.7) mg/dL Magnesium (1.8-2.4) mg/dL Iron (50-175) ug/dL TIBC (250-450) ug/dL % Saturation (20-55) % Transferrin Ferritin (8-252) ng/mL Total Bilirubin (0.2-1.0) mg/dL Direct Bilirubin (0.0-0.5) mg/dL Indirect Bilirubin AST (15-37) IU/L ALT (14-63) IU/L Alkaline Phosphatase (46-116) U/L Lactate Dehydrogenase (81-234) U/L Creatine Kinase (26-308) U/L Troponin I (0.000-0.056) ng/mL Total Protein (6.4-8.2) g/dL Albumin (3.4-5.0) g/dL Globulin (2.6-4.0) g/dL Albumin/Globulin Ratio (0.9-1.6) Lipase (73-393) U/L Vitamin B12 (193-986) pg/mL Folate (8.60-58.90) ng/mL SARS-CoV-2 RNA (FARIDEH) (NEGATIVE) Blood Type Antibody Screen Crossmatch Result Diagrams: 02/01/21 12:10 02/01/21 12:10 Sepsis Event Note - Evaluation Sepsis Screening Result: No Definite Risk - Focused Exam Vital Signs: Vital Signs Temp Pulse Resp BP Pulse Ox 02/01/21 14:35 98.2 F 70 20 109/49 L 97 02/01/21 13:50 98.0 F 72 18 97/45 L 99 02/01/21 13:00 98.2 F 70 18 106/48 L 98 02/01/21 12:38 98.0 F 72 18 101/64 98 02/01/21 11:43 97.0 F 68 18 100/54 L 100 02/01/21 11:33 96.8 F L 68 16 92/58 L 86 L Consult PN Assessment/Plan Procedures: Procedures AGENT NOS ASSAY W/OPTIC (10/21/16) ASSAY OF AMYLASE (03/29/17) ASSAY OF CREATININE (06/08/14) ASSAY OF FREE THYROXINE (11/13/13) ASSAY OF LACTIC ACID (10/11/16) ASSAY OF LIPASE (03/29/17) ASSAY OF MAGNESIUM (01/12/20) ASSAY OF SERUM SODIUM (01/12/20) ASSAY OF TROPONIN QUANT (01/27/20) ASSAY OF UREA NITROGEN (06/08/14) ASSAY THYROID STIM HORMONE (01/27/20) MANISHA DNA DIR PROBE (11/17/16) CHEST X-RAY 1 VIEW FRONTAL (03/29/17) CHEST X-RAY 2VW FRONTAL&LATL (07/22/15) CLOSTRIDIUM AG IA (10/21/16) COLONOSCOPY AND BIOPSY (11/26/18) COLONOSCOPY W/LESION REMOVAL (08/03/14) COMPLETE CBC AUTOMATED (11/01/15) COMPLETE CBC W/AUTO DIFF WBC (01/27/20) COMPREHEN METABOLIC PANEL (01/27/20) CT ABD & PELV 1/> REGNS (06/08/14) CT ABD & PELV W/CONTRAST (01/23/20) CT ABD & PELVIS W/O CONTRAST (09/24/18) CT LUMBAR SPINE W/O DYE (11/19/13) CT MAXILLOFACIAL W/O DYE (12/25/19) CT PELVIS W/O DYE (11/19/13) CULTURE AEROBIC IDENTIFY (06/01/14) CULTURE OTHR SPECIMN AEROBIC (11/29/16) ELECTROCARDIOGRAM TRACING (01/27/20) EMERGENCY DEPT VISIT (01/27/20) EMERGENCY DEPT VISIT (01/07/20) EMERGENCY DEPT VISIT (03/29/17) EMERGENCY DEPT VISIT (11/11/16) EMERGENCY DEPT VISIT (10/21/16) EMERGENCY DEPT VISIT (08/30/15) EMERGENCY DEPT VISIT (11/19/13) FREE ASSAY (FT-3) (11/13/13) GAIT TRAINING THERAPY (11/19/13) NUNO VAG DNA DIR PROBE (11/17/16) GLUCOSE BLOOD TEST (01/12/20) GLYCOSYLATED HEMOGLOBIN TEST (12/17/19) HYDRATE IV INFUSION ADD-ON (01/12/20) IMMUNOASSAY TUMOR CA 125 (06/01/14) METABOLIC PANEL TOTAL CA (01/12/20) MICROBE SUSCEPTIBLE MEGAN (02/04/18) MRI CHEST SPINE W/O DYE (07/13/20) MRI LUMBAR SPINE W/O DYE (02/10/20) OCCULT BLOOD FECES (09/24/18) OFFICE O/P EST HI 40-54 MIN (06/01/14) OFFICE O/P EST LOW 20-29 MIN (09/11/18) OFFICE O/P EST MINIMAL PROB (02/12/20) OFFICE O/P EST MOD 30-39 MIN (09/19/16) OFFICE O/P EST SF 10-19 MIN (08/13/14) OFFICE O/P NEW SF 15-29 MIN (11/27/16) PCV13 VACCINE IM (11/01/15) PROTHROMBIN TIME (03/29/17) PT EVALUATION (11/19/13) ROUTINE VENIPUNCTURE (07/05/20) SMEAR WET [place] SALINE/INK (04/29/14) STOOL CULTR AEROBIC BACT EA (10/21/16) THER/PROPH/DIAG INJ IV PUSH (11/19/13) THER/PROPH/DIAG INJ SC/IM (11/27/16) THER/PROPH/DIAG IV INF INIT (01/12/20) THERAPEUTIC ACTIVITIES (11/19/13) THERAPEUTIC EXERCISES (11/19/13) TISSUE EXAM BY PATHOLOGIST (08/03/14) TRICHOMONAS VAGIN DIR PROBE (11/17/16) TX/PRO/DX INJ NEW DRUG ADDON (11/19/13) TX/PROPH/DG ADDL SEQ IV INF (01/12/20) URINALYSIS AUTO W/O SCOPE (02/18/20) URINALYSIS AUTO W/SCOPE (02/09/20) URINE BACTERIA CULTURE (02/04/18) URINE CULTURE/COLONY COUNT (02/09/20) VITAMIN D 25 HYDROXY (07/05/20) X-RAY EXAM ABDOMEN 2 VIEWS (01/27/20) X-RAY EXAM CHEST 1 VIEW (01/12/20) X-RAY EXAM COMPLETE ABDOMEN (01/07/20) X-RAY EXAM OF ABDOMEN (11/13/13) X-RAY EXAM THORAC SPINE 2VWS (07/05/20) (1) Patient takes NSAID (non-steroid anti-inflammatory drug) SNOMED Code(s): 090888375, 416392146 Code(s): Z79.1 - CUSTODIAL (CURRENT) USE OF NON-STEROIDAL NON-INFLAM (NSAID) Priority: Medium Current Visit: Yes (2) Anemia SNOMED Code(s): 263418996 Code(s): D64.9 - ANEMIA, UNSPECIFIED Current Visit: Yes Qualifiers: Iron deficiency anemia type: chronic blood loss (3) GI bleed SNOMED Code(s): 25600969 Code(s): K92.2 - GASTROINTESTINAL HEMORRHAGE, UNSPECIFIED Priority: High Current Visit: Yes Problem List Initiated/Reviewed/Updated: Yes Plan: Patient will require transfusions and IV fluid resuscitation. We'll use the next 24-36 hours to make sure she is hemodynamically stable. Plan is for esophagogastroduodenoscopy on 02/03. Esophagogastroduodenoscopy with biopsy. The operative procedure, along with the risks, including, but not limited to, bleeding, perforation, and the need for surgery were discussed with the patient who voices understanding, offers no questions and wishes to proceed.
[2021-02-01] MEDS: Phosphorus #1 250 MG Tab PO SCH (18:33)
[2021-02-01] MEDS ORDERED: Lactated Ringers 1,000 ML IV ONE (20:52)
[2021-02-01] MEDS ORDERED: Pantoprazole 40 MG Vial IV SCH (21:00)
[2021-02-01] MEDS: Pantoprazole 40 MG in Sodium Chloride 0.9% 10 ML IV SCH (22:23)
[2021-02-02] MEDS: Phosphorus #1 250 MG Tab PO SCH ×4 (00:39→17:52)
[2021-02-02] MEDS ORDERED: Magnesium Sulfate/Water 2 GM in Premix Bag 1 BAG IV ONE (02:30)
[2021-02-02] MEDS: Lactated Ringers 1,000 ML IV SCH ×3 (03:01→22:10)
[2021-02-02 06:53] LABS: BLOOD UREA NITROGEN,BUN 18 mg/dL (7.0-18.0); CARBON DIOXIDE,CO2 22.2 mmol/L (21.0-32.0); CHLORIDE,CL 106 mmol/L (98-107); GLUCOSE RANDOM 93 mg/dL (74-106); POTASSIUM,K 3.7 mmol/L (3.5-5.1); SODIUM,NA 137 mmol/L (136-145)
--- NOTE | 2021-02-02 08:02 | PCM.PN ---
- General Info Date of Service: 02/02/21 Admission Dx/Problem (Free Text): Admission Diagnosis/Problem Admission Diagnosis/Problem GI bleed not requiring more than 4 units of blood in 24 hours, ICU, or surgery Subjective Update: Feeling improved today. Denies any chest pain shortness of breath abdominal pain. No black or bloody bowel movements tolerating diet well. Less dizzy today. Functional Status: Reports: Pain Controlled, Tolerating Diet, Ambulating, Urinating - Review of Systems General: Reports: Fatigue HEENT: Reports: No Symptoms. Denies: Headaches, Sore Throat, Visual Changes Pulmonary: Reports: No Symptoms. Denies: Shortness of Breath Cardiovascular: Reports: No Symptoms. Denies: Chest Pain Gastrointestinal: Reports: No Symptoms. Denies: Abdominal Pain, Hematochezia, Melena, Nausea, Vomiting 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: Reports: No Symptoms. Denies: Dysuria, Frequency, Burning Musculoskeletal: Reports: No Symptoms Skin: Reports: No Symptoms Neurological: Reports: No Symptoms Psychiatric: Reports: No Symptoms - Patient Data Vitals - Most Recent: Last Vital Signs Temp 98.4 F 02/02/21 04:20 Pulse 91 02/02/21 04:20 Resp 16 02/02/21 04:20 BP 123/44 L 02/02/21 04:20 Pulse Ox 97 02/02/21 04:20 Weight - Most Recent: 63.321 kg I&O - Last 24 Hours: Intake & Output 02/01/21 02/02/21 02/02/21 22:59 06:59 14:59 Intake Total 350 870 Output Total 850 Balance 350 20 Lab Results Last 24 Hours: Laboratory Results - last 24 hr 02/01/21 02/01/21 02/01/21 Range/Units 12:10 12:10 12:10 WBC 13.32 H (4.0-11.0) K/uL RBC 2.06 L (4.30-5.90) M/uL Hgb 7.1 L (12.0-16.0) g/dL Hct 20.8 L (36.0-46.0) % MCV 101.0 H (80.0-98.0) fL MCH 34.5 H (27.0-32.0) pg MCHC 34.1 (31.0-37.0) g/dL RDW Std Deviation 52.0 (28.0-62.0) fl RDW Coeff of Marimar 14 (11.0-15.0) % Plt Count 364 (150-400) K/uL MPV 10.30 (7.40-12.00) fL Neut % (Auto) 91.7 H (48.0-80.0) % Lymph % (Auto) 4.1 L (16.0-40.0) % [place] % (Auto) 4.2 (0.0-15.0) % Eos % (Auto) 0.0 (0.0-7.0) % Baso % (Auto) 0.0 (0.0-1.5) % Neut # (Auto) 12.2 H (1.4-5.7) K/uL Lymph # (Auto) 0.5 L (0.6-2.4) K/uL [place] # (Auto) 0.6 (0.0-0.8) K/uL Eos # (Auto) 0.0 (0.0-0.7) K/uL Baso # (Auto) 0.0 (0.0-0.1) K/uL Nucleated RBC % 0.1 /100WBC Nucleated RBCs # 0 K/uL Smear Path Review Absolute Retic (20-80) K/uL Percent Retic (0.5-1.5) % Immature Retic Fraction % Sodium 134 L (136-145) mmol/L Potassium 4.4 (3.5-5.1) mmol/L Chloride 104 (98-107) mmol/L Carbon Dioxide 20.9 L (21.0-32.0) mmol/L BUN 42 H (7.0-18.0) mg/dL Creatinine 0.6 (0.6-1.0) mg/dL Est Cr Clr Drug Dosing 62.64 mL/min Estimated GFR (MDRD) > 60.0 ml/min Glucose 180 H (74-106) mg/dL Lactic Acid 3.3 H* (0.4-2.0) mmol/L Calcium 8.5 (8.5-10.1) mg/dL Phosphorus 2.3 L (2.6-4.7) mg/dL Magnesium 1.7 L (1.8-2.4) mg/dL Iron (50-175) ug/dL TIBC (250-450) ug/dL % Saturation (20-55) % Transferrin Ferritin (8-252) ng/mL Total Bilirubin 0.4 (0.2-1.0) mg/dL Direct Bilirubin (0.0-0.5) mg/dL Indirect Bilirubin AST 14 L (15-37) IU/L ALT 10 L (14-63) IU/L Alkaline Phosphatase 31 L (46-116) U/L Lactate Dehydrogenase (81-234) U/L Creatine Kinase 36 (26-308) U/L Troponin I < 0.050 (0.000-0.056) ng/mL Total Protein 4.8 L (6.4-8.2) g/dL Albumin 2.8 L (3.4-5.0) g/dL Globulin 2.0 L (2.6-4.0) g/dL Albumin/Globulin Ratio 1.4 (0.9-1.6) Lipase 57 L (73-393) U/L Vitamin B12 (193-986) pg/mL Folate (8.60-58.90) ng/mL SARS-CoV-2 RNA (FARIDEH) (NEGATIVE) Blood Type Antibody Screen Crossmatch 02/01/21 02/01/21 02/01/21 Range/Units 12:10 12:10 12:10 WBC (4.0-11.0) K/uL RBC (4.30-5.90) M/uL Hgb (12.0-16.0) g/dL Hct (36.0-46.0) % MCV (80.0-98.0) fL MCH (27.0-32.0) pg MCHC (31.0-37.0) g/dL RDW Std Deviation (28.0-62.0) fl RDW Coeff of Marimar (11.0-15.0) % Plt Count (150-400) K/uL MPV (7.40-12.00) fL Neut % (Auto) (48.0-80.0) % Lymph % (Auto) (16.0-40.0) % [place] % (Auto) (0.0-15.0) % Eos % (Auto) (0.0-7.0) % Baso % (Auto) (0.0-1.5) % Neut # (Auto) (1.4-5.7) K/uL Lymph # (Auto) (0.6-2.4) K/uL [place] # (Auto) (0.0-0.8) K/uL Eos # (Auto) (0.0-0.7) K/uL Baso # (Auto) (0.0-0.1) K/uL Nucleated RBC % /100WBC Nucleated RBCs # K/uL Smear Path Review Absolute Retic (20-80) K/uL Percent Retic (0.5-1.5) % Immature Retic Fraction % Sodium (136-145) mmol/L Potassium (3.5-5.1) mmol/L Chloride (98-107) mmol/L Carbon Dioxide (21.0-32.0) mmol/L BUN (7.0-18.0) mg/dL Creatinine (0.6-1.0) mg/dL Est Cr Clr Drug Dosing mL/min Estimated GFR (MDRD) ml/min Glucose (74-106) mg/dL Lactic Acid (0.4-2.0) mmol/L Calcium (8.5-10.1) mg/dL Phosphorus (2.6-4.7) mg/dL Magnesium (1.8-2.4) mg/dL Iron 102 (50-175) ug/dL TIBC 185 L (250-450) ug/dL % Saturation 55.14 H (20-55) % Transferrin 129.5 Ferritin 378 H (8-252) ng/mL Total Bilirubin 0.4 (0.2-1.0) mg/dL Direct Bilirubin 0.10 (0.0-0.5) mg/dL Indirect Bilirubin 0.30 AST (15-37) IU/L ALT (14-63) IU/L Alkaline Phosphatase (46-116) U/L Lactate Dehydrogenase 549 H (81-234) U/L Creatine Kinase (26-308) U/L Troponin I (0.000-0.056) ng/mL Total Protein (6.4-8.2) g/dL Albumin (3.4-5.0) g/dL Globulin (2.6-4.0) g/dL Albumin/Globulin Ratio (0.9-1.6) Lipase (73-393) U/L Vitamin B12 291 (193-986) pg/mL Folate 16.50 (8.60-58.90) ng/mL SARS-CoV-2 RNA (FARIDEH) (NEGATIVE) Blood Type Antibody Screen Crossmatch 02/01/21 02/01/21 02/01/21 Range/Units 13:10 13:43 13:43 WBC (4.0-11.0) K/uL RBC (4.30-5.90) M/uL Hgb (12.0-16.0) g/dL Hct (36.0-46.0) % MCV (80.0-98.0) fL MCH (27.0-32.0) pg MCHC (31.0-37.0) g/dL RDW Std Deviation (28.0-62.0) fl RDW Coeff of Marimar (11.0-15.0) % Plt Count (150-400) K/uL MPV (7.40-12.00) fL Neut % (Auto) (48.0-80.0) % Lymph % (Auto) (16.0-40.0) % [place] % (Auto) (0.0-15.0) % Eos % (Auto) (0.0-7.0) % Baso % (Auto) (0.0-1.5) % Neut # (Auto) (1.4-5.7) K/uL Lymph # (Auto) (0.6-2.4) K/uL [place] # (Auto) (0.0-0.8) K/uL Eos # (Auto) (0.0-0.7) K/uL Baso # (Auto) (0.0-0.1) K/uL Nucleated RBC % /100WBC Nucleated RBCs # K/uL Smear Path Review SENT TO PATHOLOGY Absolute Retic (20-80) K/uL Percent Retic (0.5-1.5) % Immature Retic Fraction % Sodium (136-145) mmol/L Potassium (3.5-5.1) mmol/L Chloride (98-107) mmol/L Carbon Dioxide (21.0-32.0) mmol/L BUN (7.0-18.0) mg/dL Creatinine (0.6-1.0) mg/dL Est Cr Clr Drug Dosing mL/min Estimated GFR (MDRD) ml/min Glucose (74-106) mg/dL Lactic Acid (0.4-2.0) mmol/L Calcium (8.5-10.1) mg/dL Phosphorus (2.6-4.7) mg/dL Magnesium (1.8-2.4) mg/dL Iron (50-175) ug/dL TIBC (250-450) ug/dL % Saturation (20-55) % Transferrin Ferritin (8-252) ng/mL Total Bilirubin (0.2-1.0) mg/dL Direct Bilirubin (0.0-0.5) mg/dL Indirect Bilirubin AST (15-37) IU/L ALT (14-63) IU/L Alkaline Phosphatase (46-116) U/L Lactate Dehydrogenase (81-234) U/L Creatine Kinase (26-308) U/L Troponin I (0.000-0.056) ng/mL Total Protein (6.4-8.2) g/dL Albumin (3.4-5.0) g/dL Globulin (2.6-4.0) g/dL Albumin/Globulin Ratio (0.9-1.6) Lipase (73-393) U/L Vitamin B12 (193-986) pg/mL Folate (8.60-58.90) ng/mL SARS-CoV-2 RNA (FARIDEH) NEGATIVE (NEGATIVE) Blood Type A POSITIVE Antibody Screen NEGATIVE Crossmatch See Detail 02/01/21 02/01/21 02/02/21 Range/Units 14:56 17:00 06:02 WBC 6.73 (4.0-11.0) K/uL RBC 2.06 L 2.69 L (4.30-5.90) M/uL Hgb 8.7 L (12.0-16.0) g/dL Hct 25.2 L (36.0-46.0) % MCV 93.7 (80.0-98.0) fL MCH 32.3 H (27.0-32.0) pg MCHC 34.5 (31.0-37.0) g/dL RDW Std Deviation 56.1 (28.0-62.0) fl RDW Coeff of Marimar 17 H (11.0-15.0) % Plt Count 233 (150-400) K/uL MPV 11.00 (7.40-12.00) fL Neut % (Auto) 55.4 (48.0-80.0) % Lymph % (Auto) 33.4 (16.0-40.0) % [place] % (Auto) 9.7 (0.0-15.0) % Eos % (Auto) 1.2 (0.0-7.0) % Baso % (Auto) 0.3 (0.0-1.5) % Neut # (Auto) 3.7 (1.4-5.7) K/uL Lymph # (Auto) 2.3 (0.6-2.4) K/uL [place] # (Auto) 0.7 (0.0-0.8) K/uL Eos # (Auto) 0.1 (0.0-0.7) K/uL Baso # (Auto) 0.0 (0.0-0.1) K/uL Nucleated RBC % 0.0 /100WBC Nucleated RBCs # 0 K/uL Smear Path Review Absolute Retic 27.80 (20-80) K/uL Percent Retic 1.4 (0.5-1.5) % Immature Retic Fraction 9 % Sodium (136-145) mmol/L Potassium (3.5-5.1) mmol/L Chloride (98-107) mmol/L Carbon Dioxide (21.0-32.0) mmol/L BUN (7.0-18.0) mg/dL Creatinine (0.6-1.0) mg/dL Est Cr Clr Drug Dosing mL/min Estimated GFR (MDRD) ml/min Glucose (74-106) mg/dL Lactic Acid 1.7 (0.4-2.0) mmol/L Calcium (8.5-10.1) mg/dL Phosphorus (2.6-4.7) mg/dL Magnesium (1.8-2.4) mg/dL Iron (50-175) ug/dL TIBC (250-450) ug/dL % Saturation (20-55) % Transferrin Ferritin (8-252) ng/mL Total Bilirubin (0.2-1.0) mg/dL Direct Bilirubin (0.0-0.5) mg/dL Indirect Bilirubin AST (15-37) IU/L ALT (14-63) IU/L Alkaline Phosphatase (46-116) U/L Lactate Dehydrogenase (81-234) U/L Creatine Kinase (26-308) U/L Troponin I (0.000-0.056) ng/mL Total Protein (6.4-8.2) g/dL Albumin (3.4-5.0) g/dL Globulin (2.6-4.0) g/dL Albumin/Globulin Ratio (0.9-1.6) Lipase (73-393) U/L Vitamin B12 (193-986) pg/mL Folate (8.60-58.90) ng/mL SARS-CoV-2 RNA (FARIDEH) (NEGATIVE) Blood Type Antibody Screen Crossmatch 02/02/21 Range/Units 06:02 WBC (4.0-11.0) K/uL RBC (4.30-5.90) M/uL Hgb (12.0-16.0) g/dL Hct (36.0-46.0) % MCV (80.0-98.0) fL MCH (27.0-32.0) pg MCHC (31.0-37.0) g/dL RDW Std Deviation (28.0-62.0) fl RDW Coeff of Marimar (11.0-15.0) % Plt Count (150-400) K/uL MPV (7.40-12.00) fL Neut % (Auto) (48.0-80.0) % Lymph % (Auto) (16.0-40.0) % [place] % (Auto) (0.0-15.0) % Eos % (Auto) (0.0-7.0) % Baso % (Auto) (0.0-1.5) % Neut # (Auto) (1.4-5.7) K/uL Lymph # (Auto) (0.6-2.4) K/uL [place] # (Auto) (0.0-0.8) K/uL Eos # (Auto) (0.0-0.7) K/uL Baso # (Auto) (0.0-0.1) K/uL Nucleated RBC % /100WBC Nucleated RBCs # K/uL Smear Path Review Absolute Retic (20-80) K/uL Percent Retic (0.5-1.5) % Immature Retic Fraction % Sodium 137 (136-145) mmol/L Potassium 3.7 (3.5-5.1) mmol/L Chloride 106 (98-107) mmol/L Carbon Dioxide 22.2 (21.0-32.0) mmol/L BUN 18 (7.0-18.0) mg/dL Creatinine 0.5 L (0.6-1.0) mg/dL Est Cr Clr Drug Dosing 75.16 mL/min Estimated GFR (MDRD) > 60.0 ml/min Glucose 93 (74-106) mg/dL Lactic Acid (0.4-2.0) mmol/L Calcium 7.6 L (8.5-10.1) mg/dL Phosphorus 3.1 (2.6-4.7) mg/dL Magnesium 2.0 (1.8-2.4) mg/dL Iron (50-175) ug/dL TIBC (250-450) ug/dL % Saturation (20-55) % Transferrin Ferritin (8-252) ng/mL Total Bilirubin (0.2-1.0) mg/dL Direct Bilirubin (0.0-0.5) mg/dL Indirect Bilirubin AST (15-37) IU/L ALT (14-63) IU/L Alkaline Phosphatase (46-116) U/L Lactate Dehydrogenase (81-234) U/L Creatine Kinase (26-308) U/L Troponin I (0.000-0.056) ng/mL Total Protein (6.4-8.2) g/dL Albumin (3.4-5.0) g/dL Globulin (2.6-4.0) g/dL Albumin/Globulin Ratio (0.9-1.6) Lipase (73-393) U/L Vitamin B12 (193-986) pg/mL Folate (8.60-58.90) ng/mL SARS-CoV-2 RNA (FARIDEH) (NEGATIVE) Blood Type Antibody Screen Crossmatch Med Orders - Current: Current Medications Acetaminophen (Acetaminophen 325 Mg Tab) 650 mg PO Q4H PRN PRN Reason: Pain (Mild 1-3)/fever Pantoprazole Sodium 40 mg/ (Sodium Chloride) 10 mls @ 300 mls/hr IV Q12HR CARLY Last Admin: 02/01/21 22:23 Dose: 300 mls/hr Documented by: Lactated Ringer's (Ringers, Lactated) 1,000 mls @ 100 mls/hr IV ASDIRECTED [facility] Ondansetron HCl (Ondansetron 4 Mg/2 Ml Sdv) 4 mg IVPUSH Q4H PRN PRN Reason: Nausea Sodium Chloride (Sodium Chloride 0.9% 2.5 Ml Syringe) 2.5 ml FLUSH ASDIRECTED PRN PRN Reason: Keep Vein Open Sodium Phosphate (Phosphorus #1 250 Mg Tab) 250 mg PO QID [facility] Last Admin: 02/02/21 06:38 Dose: 250 mg Documented by: Discontinued Medications Sodium Chloride (Normal Saline) 1,000 mls @ 999 mls/hr IV .BOLUS ONE Stop: 02/01/21 12:45 Last Admin: 02/01/21 11:48 Dose: 999 mls/hr Documented by: Lactated Ringer's (Ringers, Lactated) 1,000 mls @ 150 mls/hr IV ASDIRECTED [facility] Last Admin: 02/02/21 03:01 Dose: 150 mls/hr Documented by: Pantoprazole Sodium 80 mg/ (Sodium Chloride) 20 mls @ 420 mls/hr IVPUSH ONETIME ONE Stop: 02/01/21 14:44 Last Admin: 02/01/21 16:00 Dose: 420 mls/hr Documented by: Sodium Chloride (Normal Saline) Confirm Administered Dose 20 mls @ as directed .ROUTE .STK-MED ONE Stop: 02/01/21 16:03 Last Admin: 02/01/21 16:06 Dose: Not Given Documented by: Magnesium Sulfate 2 gm/ Premix 50 mls @ 12.5 mls/hr IV ONETIME ONE Stop: 02/01/21 20:47 Last Admin: 02/02/21 02:58 Dose: Not Given Documented by: Lactated Ringer's (Ringers, Lactated) 1,000 mls @ 999 mls/hr IV .BOLUS ONE Stop: 02/01/21 21:52 Last Admin: 02/01/21 22:19 Dose: 999 mls/hr Documented by: Magnesium Sulfate 2 gm/ Premix 50 mls @ 12.5 mls/hr IV ONETIME ONE Stop: 02/02/21 06:29 Last Admin: 02/02/21 02:57 Dose: 12.5 mls/hr Documented by: Pantoprazole Sodium (Pantoprazole 40 Mg Vial) Confirm Administered Dose 80 mg .ROUTE .STK-MED ONE Stop: 02/01/21 16:00 Last Admin: 02/01/21 16:03 Dose: Not Given Documented by: - Exam Quality Assessment: Supplemental Oxygen, DVT Prophylaxis (SCDs only) General: Alert, Oriented, Cooperative, No Acute Distress, Other (Patient is much more pink in color no further pale) HEENT: Mucous Membr. Moist/[place] Lungs: Clear to Auscultation, Normal Respiratory Effort Cardiovascular: Regular Rate, Regular Rhythm GI/Abdominal Exam: Normal Bowel Sounds, Soft, Non-Tender Extremities: Normal Inspection, Normal Range of Motion, Non-Tender, No Pedal Edema Skin: Warm, Dry Neurological: No New Focal Deficit Psy/Mental Status: Alert, Normal Affect, Normal Mood - Patient Data Lab Results Last 24 hrs: Laboratory Results - last 24 hr 02/01/21 02/01/21 02/01/21 Range/Units 12:10 12:10 12:10 WBC 13.32 H (4.0-11.0) K/uL RBC 2.06 L (4.30-5.90) M/uL Hgb 7.1 L (12.0-16.0) g/dL Hct 20.8 L (36.0-46.0) % MCV 101.0 H (80.0-98.0) fL MCH 34.5 H (27.0-32.0) pg MCHC 34.1 (31.0-37.0) g/dL RDW Std Deviation 52.0 (28.0-62.0) fl RDW Coeff of Marimar 14 (11.0-15.0) % Plt Count 364 (150-400) K/uL MPV 10.30 (7.40-12.00) fL Neut % (Auto) 91.7 H (48.0-80.0) % Lymph % (Auto) 4.1 L (16.0-40.0) % [place] % (Auto) 4.2 (0.0-15.0) % Eos % (Auto) 0.0 (0.0-7.0) % Baso % (Auto) 0.0 (0.0-1.5) % Neut # (Auto) 12.2 H (1.4-5.7) K/uL Lymph # (Auto) 0.5 L (0.6-2.4) K/uL [place] # (Auto) 0.6 (0.0-0.8) K/uL Eos # (Auto) 0.0 (0.0-0.7) K/uL Baso # (Auto) 0.0 (0.0-0.1) K/uL Nucleated RBC % 0.1 /100WBC Nucleated RBCs # 0 K/uL Smear Path Review Absolute Retic (20-80) K/uL Percent Retic (0.5-1.5) % Immature Retic Fraction % Sodium 134 L (136-145) mmol/L Potassium 4.4 (3.5-5.1) mmol/L Chloride 104 (98-107) mmol/L Carbon Dioxide 20.9 L (21.0-32.0) mmol/L BUN 42 H (7.0-18.0) mg/dL Creatinine 0.6 (0.6-1.0) mg/dL Est Cr Clr Drug Dosing 62.64 mL/min Estimated GFR (MDRD) > 60.0 ml/min Glucose 180 H (74-106) mg/dL Lactic Acid 3.3 H* (0.4-2.0) mmol/L Calcium 8.5 (8.5-10.1) mg/dL Phosphorus 2.3 L (2.6-4.7) mg/dL Magnesium 1.7 L (1.8-2.4) mg/dL Iron (50-175) ug/dL TIBC (250-450) ug/dL % Saturation (20-55) % Transferrin Ferritin (8-252) ng/mL Total Bilirubin 0.4 (0.2-1.0) mg/dL Direct Bilirubin (0.0-0.5) mg/dL Indirect Bilirubin AST 14 L (15-37) IU/L ALT 10 L (14-63) IU/L Alkaline Phosphatase 31 L (46-116) U/L Lactate Dehydrogenase (81-234) U/L Creatine Kinase 36 (26-308) U/L Troponin I < 0.050 (0.000-0.056) ng/mL Total Protein 4.8 L (6.4-8.2) g/dL Albumin 2.8 L (3.4-5.0) g/dL Globulin 2.0 L (2.6-4.0) g/dL Albumin/Globulin Ratio 1.4 (0.9-1.6) Lipase 57 L (73-393) U/L Vitamin B12 (193-986) pg/mL Folate (8.60-58.90) ng/mL SARS-CoV-2 RNA (FARIDEH) (NEGATIVE) Blood Type Antibody Screen Crossmatch 02/01/21 02/01/21 02/01/21 Range/Units 12:10 12:10 12:10 WBC (4.0-11.0) K/uL RBC (4.30-5.90) M/uL Hgb (12.0-16.0) g/dL Hct (36.0-46.0) % MCV (80.0-98.0) fL MCH (27.0-32.0) pg MCHC (31.0-37.0) g/dL RDW Std Deviation (28.0-62.0) fl RDW Coeff of Marimar (11.0-15.0) % Plt Count (150-400) K/uL MPV (7.40-12.00) fL Neut % (Auto) (48.0-80.0) % Lymph % (Auto) (16.0-40.0) % [place] % (Auto) (0.0-15.0) % Eos % (Auto) (0.0-7.0) % Baso % (Auto) (0.0-1.5) % Neut # (Auto) (1.4-5.7) K/uL Lymph # (Auto) (0.6-2.4) K/uL [place] # (Auto) (0.0-0.8) K/uL Eos # (Auto) (0.0-0.7) K/uL Baso # (Auto) (0.0-0.1) K/uL Nucleated RBC % /100WBC Nucleated RBCs # K/uL Smear Path Review Absolute Retic (20-80) K/uL Percent Retic (0.5-1.5) % Immature Retic Fraction % Sodium (136-145) mmol/L Potassium (3.5-5.1) mmol/L Chloride (98-107) mmol/L Carbon Dioxide (21.0-32.0) mmol/L BUN (7.0-18.0) mg/dL Creatinine (0.6-1.0) mg/dL Est Cr Clr Drug Dosing mL/min Estimated GFR (MDRD) ml/min Glucose (74-106) mg/dL Lactic Acid (0.4-2.0) mmol/L Calcium (8.5-10.1) mg/dL Phosphorus (2.6-4.7) mg/dL Magnesium (1.8-2.4) mg/dL Iron 102 (50-175) ug/dL TIBC 185 L (250-450) ug/dL % Saturation 55.14 H (20-55) % Transferrin 129.5 Ferritin 378 H (8-252) ng/mL Total Bilirubin 0.4 (0.2-1.0) mg/dL Direct Bilirubin 0.10 (0.0-0.5) mg/dL Indirect Bilirubin 0.30 AST (15-37) IU/L ALT (14-63) IU/L Alkaline Phosphatase (46-116) U/L Lactate Dehydrogenase 549 H (81-234) U/L Creatine Kinase (26-308) U/L Troponin I (0.000-0.056) ng/mL Total Protein (6.4-8.2) g/dL Albumin (3.4-5.0) g/dL Globulin (2.6-4.0) g/dL Albumin/Globulin Ratio (0.9-1.6) Lipase (73-393) U/L Vitamin B12 291 (193-986) pg/mL Folate 16.50 (8.60-58.90) ng/mL SARS-CoV-2 RNA (FARIDEH) (NEGATIVE) Blood Type Antibody Screen Crossmatch 02/01/21 02/01/21 02/01/21 Range/Units 13:10 13:43 13:43 WBC (4.0-11.0) K/uL RBC (4.30-5.90) M/uL Hgb (12.0-16.0) g/dL Hct (36.0-46.0) % MCV (80.0-98.0) fL MCH (27.0-32.0) pg MCHC (31.0-37.0) g/dL RDW Std Deviation (28.0-62.0) fl RDW Coeff of Marimar (11.0-15.0) % Plt Count (150-400) K/uL MPV (7.40-12.00) fL Neut % (Auto) (48.0-80.0) % Lymph % (Auto) (16.0-40.0) % [place] % (Auto) (0.0-15.0) % Eos % (Auto) (0.0-7.0) % Baso % (Auto) (0.0-1.5) % Neut # (Auto) (1.4-5.7) K/uL Lymph # (Auto) (0.6-2.4) K/uL [place] # (Auto) (0.0-0.8) K/uL Eos # (Auto) (0.0-0.7) K/uL Baso # (Auto) (0.0-0.1) K/uL Nucleated RBC % /100WBC Nucleated RBCs # K/uL Smear Path Review SENT TO PATHOLOGY Absolute Retic (20-80) K/uL Percent Retic (0.5-1.5) % Immature Retic Fraction % Sodium (136-145) mmol/L Potassium (3.5-5.1) mmol/L Chloride (98-107) mmol/L Carbon Dioxide (21.0-32.0) mmol/L BUN (7.0-18.0) mg/dL Creatinine (0.6-1.0) mg/dL Est Cr Clr Drug Dosing mL/min Estimated GFR (MDRD) ml/min Glucose (74-106) mg/dL Lactic Acid (0.4-2.0) mmol/L Calcium (8.5-10.1) mg/dL Phosphorus (2.6-4.7) mg/dL Magnesium (1.8-2.4) mg/dL Iron (50-175) ug/dL TIBC (250-450) ug/dL % Saturation (20-55) % Transferrin Ferritin (8-252) ng/mL Total Bilirubin (0.2-1.0) mg/dL Direct Bilirubin (0.0-0.5) mg/dL Indirect Bilirubin AST (15-37) IU/L ALT (14-63) IU/L Alkaline Phosphatase (46-116) U/L Lactate Dehydrogenase (81-234) U/L Creatine Kinase (26-308) U/L Troponin I (0.000-0.056) ng/mL Total Protein (6.4-8.2) g/dL Albumin (3.4-5.0) g/dL Globulin (2.6-4.0) g/dL Albumin/Globulin Ratio (0.9-1.6) Lipase (73-393) U/L Vitamin B12 (193-986) pg/mL Folate (8.60-58.90) ng/mL SARS-CoV-2 RNA (FARIDEH) NEGATIVE (NEGATIVE) Blood Type A POSITIVE Antibody Screen NEGATIVE Crossmatch See Detail 02/01/21 02/01/21 02/02/21 Range/Units 14:56 17:00 06:02 WBC 6.73 (4.0-11.0) K/uL RBC 2.06 L 2.69 L (4.30-5.90) M/uL Hgb 8.7 L (12.0-16.0) g/dL Hct 25.2 L (36.0-46.0) % MCV 93.7 (80.0-98.0) fL MCH 32.3 H (27.0-32.0) pg MCHC 34.5 (31.0-37.0) g/dL RDW Std Deviation 56.1 (28.0-62.0) fl RDW Coeff of [place] 17 H (11.0-15.0) % Plt Count 233 (150-400) K/uL MPV 11.00 (7.40-12.00) fL Neut % (Auto) 55.4 (48.0-80.0) % Lymph % (Auto) 33.4 (16.0-40.0) % [place] % (Auto) 9.7 (0.0-15.0) % Eos % (Auto) 1.2 (0.0-7.0) % Baso % (Auto) 0.3 (0.0-1.5) % Neut # (Auto) 3.7 (1.4-5.7) K/uL Lymph # (Auto) 2.3 (0.6-2.4) K/uL [place] # (Auto) 0.7 (0.0-0.8) K/uL Eos # (Auto) 0.1 (0.0-0.7) K/uL Baso # (Auto) 0.0 (0.0-0.1) K/uL Nucleated RBC % 0.0 /100WBC Nucleated RBCs # 0 K/uL Smear Path Review Absolute Retic 27.80 (20-80) K/uL Percent Retic 1.4 (0.5-1.5) % Immature Retic Fraction 9 % Sodium (136-145) mmol/L Potassium (3.5-5.1) mmol/L Chloride (98-107) mmol/L Carbon Dioxide (21.0-32.0) mmol/L BUN (7.0-18.0) mg/dL Creatinine (0.6-1.0) mg/dL Est Cr Clr Drug Dosing mL/min Estimated GFR (MDRD) ml/min Glucose (74-106) mg/dL Lactic Acid 1.7 (0.4-2.0) mmol/L Calcium (8.5-10.1) mg/dL Phosphorus (2.6-4.7) mg/dL Magnesium (1.8-2.4) mg/dL Iron (50-175) ug/dL TIBC (250-450) ug/dL % Saturation (20-55) % Transferrin Ferritin (8-252) ng/mL Total Bilirubin (0.2-1.0) mg/dL Direct Bilirubin (0.0-0.5) mg/dL Indirect Bilirubin AST (15-37) IU/L ALT (14-63) IU/L Alkaline Phosphatase (46-116) U/L Lactate Dehydrogenase (81-234) U/L Creatine Kinase (26-308) U/L Troponin I (0.000-0.056) ng/mL Total Protein (6.4-8.2) g/dL Albumin (3.4-5.0) g/dL Globulin (2.6-4.0) g/dL Albumin/Globulin Ratio (0.9-1.6) Lipase (73-393) U/L Vitamin B12 (193-986) pg/mL Folate (8.60-58.90) ng/mL SARS-CoV-2 RNA (FARIDEH) (NEGATIVE) Blood Type Antibody Screen Crossmatch 02/02/21 Range/Units 06:02 WBC (4.0-11.0) K/uL RBC (4.30-5.90) M/uL Hgb (12.0-16.0) g/dL Hct (36.0-46.0) % MCV (80.0-98.0) fL MCH (27.0-32.0) pg MCHC (31.0-37.0) g/dL RDW Std Deviation (28.0-62.0) fl RDW Coeff of [place] (11.0-15.0) % Plt Count (150-400) K/uL MPV (7.40-12.00) fL Neut % (Auto) (48.0-80.0) % Lymph % (Auto) (16.0-40.0) % [place] % (Auto) (0.0-15.0) % Eos % (Auto) (0.0-7.0) % Baso % (Auto) (0.0-1.5) % Neut # (Auto) (1.4-5.7) K/uL Lymph # (Auto) (0.6-2.4) K/uL [place] # (Auto) (0.0-0.8) K/uL Eos # (Auto) (0.0-0.7) K/uL Baso # (Auto) (0.0-0.1) K/uL Nucleated RBC % /100WBC Nucleated RBCs # K/uL Smear Path Review Absolute Retic (20-80) K/uL Percent Retic (0.5-1.5) % Immature Retic Fraction % Sodium 137 (136-145) mmol/L Potassium 3.7 (3.5-5.1) mmol/L Chloride 106 (98-107) mmol/L Carbon Dioxide 22.2 (21.0-32.0) mmol/L BUN 18 (7.0-18.0) mg/dL Creatinine 0.5 L (0.6-1.0) mg/dL Est Cr Clr Drug Dosing 75.16 mL/min Estimated GFR (MDRD) > 60.0 ml/min Glucose 93 (74-106) mg/dL Lactic Acid (0.4-2.0) mmol/L Calcium 7.6 L (8.5-10.1) mg/dL Phosphorus 3.1 (2.6-4.7) mg/dL Magnesium 2.0 (1.8-2.4) mg/dL Iron (50-175) ug/dL TIBC (250-450) ug/dL % Saturation (20-55) % Transferrin Ferritin (8-252) ng/mL Total Bilirubin (0.2-1.0) mg/dL Direct Bilirubin (0.0-0.5) mg/dL Indirect Bilirubin AST (15-37) IU/L ALT (14-63) IU/L Alkaline Phosphatase (46-116) U/L Lactate Dehydrogenase (81-234) U/L Creatine Kinase (26-308) U/L Troponin I (0.000-0.056) ng/mL Total Protein (6.4-8.2) g/dL Albumin (3.4-5.0) g/dL Globulin (2.6-4.0) g/dL Albumin/Globulin Ratio (0.9-1.6) Lipase (73-393) U/L Vitamin B12 (193-986) pg/mL Folate (8.60-58.90) ng/mL SARS-CoV-2 RNA (FARIDEH) (NEGATIVE) Blood Type Antibody Screen Crossmatch Result Diagrams: 02/02/21 06:02 02/02/21 06:02 Sepsis Event Note - Evaluation Sepsis Screening Result: No Definite Risk - Focused Exam Vital Signs: Vital Signs Temp Temp Pulse Resp BP Pulse Ox 02/02/21 04:20 98.4 F 91 16 123/44 L 97 02/02/21 04:03 98.3 F 91 16 123/44 L 97 02/02/21 01:25 98.5 F 67 16 110/44 L 96 02/02/21 01:10 98.5 F 80 16 115/38 L 98 02/02/21 00:28 98.1 F 78 16 120/36 L 98 02/01/21 22:45 98.4 F 94 16 95/45 L 97 02/01/21 21:45 99.1 F 75 18 102/52 L 98 - Problem List & Annotations (1) Anemia SNOMED Code(s): 362355549 Code(s): D64.9 - ANEMIA, UNSPECIFIED Status: Acute Current Visit: Yes Qualifiers: Iron deficiency anemia type: chronic blood loss (2) GI bleed SNOMED Code(s): 58983223 Code(s): K92.2 - GASTROINTESTINAL HEMORRHAGE, UNSPECIFIED Status: Suspected Priority: High Current Visit: Yes (3) Generalized weakness SNOMED Code(s): 27093944 Code(s): R53.1 - WEAKNESS Status: Acute Current Visit: No (4) HTN (hypertension) SNOMED Code(s): 78235454 Code(s): I10 - ESSENTIAL (PRIMARY) HYPERTENSION Status: Chronic Current Visit: Yes (5) Hypoxia SNOMED Code(s): 493450287 Code(s): R09.02 - HYPOXEMIA Status: Acute Current Visit: Yes - Problem List Review Problem List Initiated/Reviewed/Updated: Yes - My Orders Last 24 Hours: My Active Orders 02/01/21 15:35 HAPTOGLOBIN [REF] Stat 02/01/21 Dinner Soft Diet [DIET] 02/01/21 16:29 Oxygen Therapy [RC] PRN Up With Assistance [RC] ASDIRECTED VTE/DVT Education [RC] PER UNIT ROUTINE Vital Signs [RC] Q4H Acetaminophen [TylenoL] 650 mg PO Q4H PRN Ondansetron [Zofran] 4 mg IVPUSH Q4H PRN Sodium Chloride 0.9% [Saline Flush] 2.5 ml FLUSH ASDIRECTED PRN Saline Lock Insert [OM.PC] Routine Resuscitation Status Routine 02/01/21 16:32 Intake and Output [RC] Q12H 02/01/21 16:37 Communication Order [RC] PRN Communication Order [RC] ROUTINE 02/01/21 16:48 Communication Order [RC] PRN 02/01/21 18:00 Phosphorus #1 [Neutra-Phos] 250 mg PO QID 02/01/21 21:00 Pantoprazole [ProTONIX IV] 40 mg Sodium Chloride 0.9% [Normal Saline] 10 ml IV Q12HR 02/02/21 07:59 Lactated Ringers [Ringers, Lactated] 1,000 ml IV ASDIRECTED Transfuse Red Blood Cells [COMM] Routine - Plan Plan:: This 85-year-old female admitted with symptomatic anemia likely secondary to chronic GI bleed. 1. Suspected GI bleeding Hypotension and weakness has improved. Continues to be hypoxic but this also is improving down to 1 L of cannula. Transfused 2 units of blood overnight hemoglobin 8.7 will transfuse 1 more with a goal of 9 today Iron studies stable no significant iron deficiency noted. Hemolysis work-up appears negative haptoglobin pending Appreciate Dr. Obregon's assistance with this patient. Plan for EGD in a.m. IV Protonix 40 mg IV twice daily Continue gentle IV fluids Monitor on telemetry Maintain 2 large-bore IVs at all times 2. Hypoxia -Chest x-ray negative improving as oxygen carrying capacity has improved with resolution of anemia. Continue to monitor 3. Elevated lactic acid Improved and resolved likely secondary to hypoxia and hypotension. 4. Hypertension Blood pressures have improved continue to hold antihypertensives at this time. VTE prophylaxis: SCDs and ambulation only due to suspected GI bleed and anemia GI prophylaxis: Protonix CODE STATUS: Full code Dispo: 2 to 3 days pending improvement. Consults: Dr. Obregon, general surgery Updated daughter Jeannine at bedside today all questions and concerns addressed.
[2021-02-02] MEDS: Pantoprazole 40 MG in Sodium Chloride 0.9% 10 ML IV SCH ×2 (08:22→20:36)
--- NOTE | 2021-02-02 09:55 | PCM.CONSN ---
- General Info Date of Service: 02/02/21 Admission Dx/Problem (Free Text): Anemia with Hemoccult positive stool. Subjective Update: Patient states she is feeling better today. She reports her energy level is better. She denies any abdominal pain No nausea or vomiting. Functional Status: Reports: Tolerating Diet, Ambulating. Denies: New Symptoms - Review of Systems General: Denies: Fever, Weakness, Fatigue, Malaise HEENT: Reports: No Symptoms Pulmonary: Denies: Shortness of Breath, Cough Cardiovascular: Denies: Chest Pain Gastrointestinal: Denies: Abdominal Pain, Constipation, Decreased Appetite, Diarrhea, Nausea, Vomiting 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: Denies: Dysuria, Frequency, Burning Musculoskeletal: Reports: No Symptoms Skin: Reports: No Symptoms Neurological: Reports: No Symptoms Psychiatric: Reports: No Symptoms - Patient Data Vitals - Most Recent: Last Vital Signs Temp 99.3 F 02/02/21 08:00 Pulse 63 02/02/21 08:00 Resp 18 02/02/21 08:00 BP 122/50 L 02/02/21 08:00 Pulse Ox 95 02/02/21 08:00 Weight - Most Recent: 139 lb 9.6 oz I&O - Last 24 Hours: Intake & Output 02/01/21 02/02/21 02/02/21 19:59 03:59 11:59 Intake Total 38 327 855 Output Total 850 Balance 38 327 5 Lab Results Last 24 Hours: Laboratory Results - last 24 hr 02/01/21 02/01/21 02/01/21 Range/Units 12:10 12:10 12:10 WBC 13.32 H (4.0-11.0) K/uL RBC 2.06 L (4.30-5.90) M/uL Hgb 7.1 L (12.0-16.0) g/dL Hct 20.8 L (36.0-46.0) % MCV 101.0 H (80.0-98.0) fL MCH 34.5 H (27.0-32.0) pg MCHC 34.1 (31.0-37.0) g/dL RDW Std Deviation 52.0 (28.0-62.0) fl RDW Coeff of Marimar 14 (11.0-15.0) % Plt Count 364 (150-400) K/uL MPV 10.30 (7.40-12.00) fL Neut % (Auto) 91.7 H (48.0-80.0) % Lymph % (Auto) 4.1 L (16.0-40.0) % [place] % (Auto) 4.2 (0.0-15.0) % Eos % (Auto) 0.0 (0.0-7.0) % Baso % (Auto) 0.0 (0.0-1.5) % Neut # (Auto) 12.2 H (1.4-5.7) K/uL Lymph # (Auto) 0.5 L (0.6-2.4) K/uL [place] # (Auto) 0.6 (0.0-0.8) K/uL Eos # (Auto) 0.0 (0.0-0.7) K/uL Baso # (Auto) 0.0 (0.0-0.1) K/uL Nucleated RBC % 0.1 /100WBC Nucleated RBCs # 0 K/uL Smear Path Review Absolute Retic (20-80) K/uL Percent Retic (0.5-1.5) % Immature Retic Fraction % Sodium 134 L (136-145) mmol/L Potassium 4.4 (3.5-5.1) mmol/L Chloride 104 (98-107) mmol/L Carbon Dioxide 20.9 L (21.0-32.0) mmol/L BUN 42 H (7.0-18.0) mg/dL Creatinine 0.6 (0.6-1.0) mg/dL Est Cr Clr Drug Dosing 62.64 mL/min Estimated GFR (MDRD) > 60.0 ml/min Glucose 180 H (74-106) mg/dL Lactic Acid 3.3 H* (0.4-2.0) mmol/L Calcium 8.5 (8.5-10.1) mg/dL Phosphorus 2.3 L (2.6-4.7) mg/dL Magnesium 1.7 L (1.8-2.4) mg/dL Iron (50-175) ug/dL TIBC (250-450) ug/dL % Saturation (20-55) % Transferrin Ferritin (8-252) ng/mL Total Bilirubin 0.4 (0.2-1.0) mg/dL Direct Bilirubin (0.0-0.5) mg/dL Indirect Bilirubin AST 14 L (15-37) IU/L ALT 10 L (14-63) IU/L Alkaline Phosphatase 31 L (46-116) U/L Lactate Dehydrogenase (81-234) U/L Creatine Kinase 36 (26-308) U/L Troponin I < 0.050 (0.000-0.056) ng/mL Total Protein 4.8 L (6.4-8.2) g/dL Albumin 2.8 L (3.4-5.0) g/dL Globulin 2.0 L (2.6-4.0) g/dL Albumin/Globulin Ratio 1.4 (0.9-1.6) Lipase 57 L (73-393) U/L Vitamin B12 (193-986) pg/mL Folate (8.60-58.90) ng/mL SARS-CoV-2 RNA (FARIDEH) (NEGATIVE) Blood Type Antibody Screen Crossmatch 02/01/21 02/01/21 02/01/21 Range/Units 12:10 12:10 12:10 WBC (4.0-11.0) K/uL RBC (4.30-5.90) M/uL Hgb (12.0-16.0) g/dL Hct (36.0-46.0) % MCV (80.0-98.0) fL MCH (27.0-32.0) pg MCHC (31.0-37.0) g/dL RDW Std Deviation (28.0-62.0) fl RDW Coeff of Marimar (11.0-15.0) % Plt Count (150-400) K/uL MPV (7.40-12.00) fL Neut % (Auto) (48.0-80.0) % Lymph % (Auto) (16.0-40.0) % [place] % (Auto) (0.0-15.0) % Eos % (Auto) (0.0-7.0) % Baso % (Auto) (0.0-1.5) % Neut # (Auto) (1.4-5.7) K/uL Lymph # (Auto) (0.6-2.4) K/uL [place] # (Auto) (0.0-0.8) K/uL Eos # (Auto) (0.0-0.7) K/uL Baso # (Auto) (0.0-0.1) K/uL Nucleated RBC % /100WBC Nucleated RBCs # K/uL Smear Path Review Absolute Retic (20-80) K/uL Percent Retic (0.5-1.5) % Immature Retic Fraction % Sodium (136-145) mmol/L Potassium (3.5-5.1) mmol/L Chloride (98-107) mmol/L Carbon Dioxide (21.0-32.0) mmol/L BUN (7.0-18.0) mg/dL Creatinine (0.6-1.0) mg/dL Est Cr Clr Drug Dosing mL/min Estimated GFR (MDRD) ml/min Glucose (74-106) mg/dL Lactic Acid (0.4-2.0) mmol/L Calcium (8.5-10.1) mg/dL Phosphorus (2.6-4.7) mg/dL Magnesium (1.8-2.4) mg/dL Iron 102 (50-175) ug/dL TIBC 185 L (250-450) ug/dL % Saturation 55.14 H (20-55) % Transferrin 129.5 Ferritin 378 H (8-252) ng/mL Total Bilirubin 0.4 (0.2-1.0) mg/dL Direct Bilirubin 0.10 (0.0-0.5) mg/dL Indirect Bilirubin 0.30 AST (15-37) IU/L ALT (14-63) IU/L Alkaline Phosphatase (46-116) U/L Lactate Dehydrogenase 549 H (81-234) U/L Creatine Kinase (26-308) U/L Troponin I (0.000-0.056) ng/mL Total Protein (6.4-8.2) g/dL Albumin (3.4-5.0) g/dL Globulin (2.6-4.0) g/dL Albumin/Globulin Ratio (0.9-1.6) Lipase (73-393) U/L Vitamin B12 291 (193-986) pg/mL Folate 16.50 (8.60-58.90) ng/mL SARS-CoV-2 RNA (FARIDEH) (NEGATIVE) Blood Type Antibody Screen Crossmatch 02/01/21 02/01/2102/01/21 Range/Units 13:10 13:43 13:43 WBC (4.0-11.0) K/uL RBC (4.30-5.90) M/uL Hgb (12.0-16.0) g/dL Hct (36.0-46.0) % MCV (80.0-98.0) fL MCH (27.0-32.0) pg MCHC (31.0-37.0) g/dL RDW Std Deviation (28.0-62.0) fl RDW Coeff of Marimar (11.0-15.0) % Plt Count (150-400) K/uL MPV (7.40-12.00) fL Neut % (Auto) (48.0-80.0) % Lymph % (Auto) (16.0-40.0) % [place] % (Auto) (0.0-15.0) % Eos % (Auto) (0.0-7.0) % Baso % (Auto) (0.0-1.5) % Neut # (Auto) (1.4-5.7) K/uL Lymph # (Auto) (0.6-2.4) K/uL [place] # (Auto) (0.0-0.8) K/uL Eos # (Auto) (0.0-0.7) K/uL Baso # (Auto) (0.0-0.1) K/uL Nucleated RBC % /100WBC Nucleated RBCs # K/uL Smear Path Review SENT TO PATHOLOGY Absolute Retic (20-80) K/uL Percent Retic (0.5-1.5) % Immature Retic Fraction % Sodium (136-145) mmol/L Potassium (3.5-5.1) mmol/L Chloride (98-107) mmol/L Carbon Dioxide (21.0-32.0) mmol/L BUN (7.0-18.0) mg/dL Creatinine (0.6-1.0) mg/dL Est Cr Clr Drug Dosing mL/min Estimated GFR (MDRD) ml/min Glucose (74-106) mg/dL Lactic Acid (0.4-2.0) mmol/L Calcium (8.5-10.1) mg/dL Phosphorus (2.6-4.7) mg/dL Magnesium (1.8-2.4) mg/dL Iron (50-175) ug/dL TIBC (250-450) ug/dL % Saturation (20-55) % Transferrin Ferritin (8-252) ng/mL Total Bilirubin (0.2-1.0) mg/dL Direct Bilirubin (0.0-0.5) mg/dL Indirect Bilirubin AST (15-37) IU/L ALT (14-63) IU/L Alkaline Phosphatase (46-116) U/L Lactate Dehydrogenase (81-234) U/L Creatine Kinase (26-308) U/L Troponin I (0.000-0.056) ng/mL Total Protein (6.4-8.2) g/dL Albumin (3.4-5.0) g/dL Globulin (2.6-4.0) g/dL Albumin/Globulin Ratio (0.9-1.6) Lipase (73-393) U/L Vitamin B12 (193-986) pg/mL Folate (8.60-58.90) ng/mL SARS-CoV-2 RNA (FARIDEH) NEGATIVE (NEGATIVE) Blood Type A POSITIVE Antibody Screen NEGATIVE Crossmatch See Detail 02/01/21 02/01/21 02/02/21 Range/Units 14:56 17:00 06:02 WBC 6.73 (4.0-11.0) K/uL RBC 2.06 L 2.69 L (4.30-5.90) M/uL Hgb 8.7 L (12.0-16.0) g/dL Hct 25.2 L (36.0-46.0) % MCV 93.7 (80.0-98.0) fL MCH 32.3 H (27.0-32.0) pg MCHC 34.5 (31.0-37.0) g/dL RDW Std Deviation 56.1 (28.0-62.0) fl RDW Coeff of Marimar 17 H (11.0-15.0) % Plt Count 233 (150-400) K/uL MPV 11.00 (7.40-12.00) fL Neut % (Auto) 55.4 (48.0-80.0) % Lymph % (Auto) 33.4 (16.0-40.0) % [place] % (Auto) 9.7 (0.0-15.0) % Eos % (Auto) 1.2 (0.0-7.0) % Baso % (Auto) 0.3 (0.0-1.5) % Neut # (Auto) 3.7 (1.4-5.7) K/uL Lymph # (Auto) 2.3 (0.6-2.4) K/uL [place] # (Auto) 0.7 (0.0-0.8) K/uL Eos # (Auto) 0.1 (0.0-0.7) K/uL Baso # (Auto) 0.0 (0.0-0.1) K/uL Nucleated RBC % 0.0 /100WBC Nucleated RBCs # 0 K/uL Smear Path Review Absolute Retic 27.80 (20-80) K/uL Percent Retic 1.4 (0.5-1.5) % Immature Retic Fraction 9 % Sodium (136-145) mmol/L Potassium (3.5-5.1) mmol/L Chloride (98-107) mmol/L Carbon Dioxide (21.0-32.0) mmol/L BUN (7.0-18.0) mg/dL Creatinine (0.6-1.0) mg/dL Est Cr Clr Drug Dosing mL/min Estimated GFR (MDRD) ml/min Glucose (74-106) mg/dL Lactic Acid 1.7 (0.4-2.0) mmol/L Calcium (8.5-10.1) mg/dL Phosphorus (2.6-4.7) mg/dL Magnesium (1.8-2.4) mg/dL Iron (50-175) ug/dL TIBC (250-450) ug/dL % Saturation (20-55) % Transferrin Ferritin (8-252) ng/mL Total Bilirubin (0.2-1.0) mg/dL Direct Bilirubin (0.0-0.5) mg/dL Indirect Bilirubin AST (15-37) IU/L ALT (14-63) IU/L Alkaline Phosphatase (46-116) U/L Lactate Dehydrogenase (81-234) U/L Creatine Kinase (26-308) U/L Troponin I (0.000-0.056) ng/mL Total Protein (6.4-8.2) g/dL Albumin (3.4-5.0) g/dL Globulin (2.6-4.0) g/dL Albumin/Globulin Ratio (0.9-1.6) Lipase (73-393) U/L Vitamin B12 (193-986) pg/mL Folate (8.60-58.90) ng/mL SARS-CoV-2 RNA (FARIDEH) (NEGATIVE) Blood Type Antibody Screen Crossmatch 02/02/21 Range/Units 06:02 WBC (4.0-11.0) K/uL RBC (4.30-5.90) M/uL Hgb (12.0-16.0) g/dL Hct (36.0-46.0) % MCV (80.0-98.0) fL MCH (27.0-32.0) pg MCHC (31.0-37.0) g/dL RDW Std Deviation (28.0-62.0) fl RDW Coeff of Marimar (11.0-15.0) % Plt Count (150-400) K/uL MPV (7.40-12.00) fL Neut % (Auto) (48.0-80.0) % Lymph % (Auto) (16.0-40.0) % [place] % (Auto) (0.0-15.0) % Eos % (Auto) (0.0-7.0) % Baso % (Auto) (0.0-1.5) % Neut # (Auto) (1.4-5.7) K/uL Lymph # (Auto) (0.6-2.4) K/uL [place] # (Auto) (0.0-0.8) K/uL Eos # (Auto) (0.0-0.7) K/uL Baso # (Auto) (0.0-0.1) K/uL Nucleated RBC % /100WBC Nucleated RBCs # K/uL Smear Path Review Absolute Retic (20-80) K/uL Percent Retic (0.5-1.5) % Immature Retic Fraction % Sodium 137 (136-145) mmol/L Potassium 3.7 (3.5-5.1) mmol/L Chloride 106 (98-107) mmol/L Carbon Dioxide 22.2 (21.0-32.0) mmol/L BUN 18 (7.0-18.0) mg/dL Creatinine 0.5 L (0.6-1.0) mg/dL Est Cr Clr Drug Dosing 75.16 mL/min Estimated GFR (MDRD) > 60.0 ml/min Glucose 93 (74-106) mg/dL Lactic Acid (0.4-2.0) mmol/L Calcium 7.6 L (8.5-10.1) mg/dL Phosphorus 3.1 (2.6-4.7) mg/dL Magnesium 2.0 (1.8-2.4) mg/dL Iron (50-175) ug/dL TIBC (250-450) ug/dL % Saturation (20-55) % Transferrin Ferritin (8-252) ng/mL Total Bilirubin (0.2-1.0) mg/dL Direct Bilirubin (0.0-0.5) mg/dL Indirect Bilirubin AST (15-37) IU/L ALT (14-63) IU/L Alkaline Phosphatase (46-116) U/L Lactate Dehydrogenase (81-234) U/L Creatine Kinase (26-308) U/L Troponin I (0.000-0.056) ng/mL Total Protein (6.4-8.2) g/dL Albumin (3.4-5.0) g/dL Globulin (2.6-4.0) g/dL Albumin/Globulin Ratio (0.9-1.6) Lipase (73-393) U/L Vitamin B12 (193-986) pg/mL Folate (8.60-58.90) ng/mL SARS-CoV-2 RNA (FARIDEH) (NEGATIVE) Blood Type Antibody Screen Crossmatch Med Orders - Current: Current Medications Acetaminophen (Acetaminophen 325 Mg Tab) 650 mg PO Q4H PRN PRN Reason: Pain (Mild 1-3)/fever Pantoprazole Sodium 40 mg/ (Sodium Chloride) 10 mls @ 300 mls/hr IV Q12HR [facility] Last Admin: 02/02/21 08:22 Dose: 300 mls/hr Documented by: Lactated Ringer's (Ringers, Lactated) 1,000 mls @ 100 mls/hr IV ASDIRECTED [facility] Last Admin: 02/02/21 08:25 Dose: 100 mls/hr Documented by: Ondansetron HCl (Ondansetron 4 Mg/2 Ml Sdv) 4 mg IVPUSH Q4H PRN PRN Reason: Nausea Sodium Chloride (Sodium Chloride 0.9% 2.5 Ml Syringe) 2.5 ml FLUSH ASDIRECTED PRN PRN Reason: Keep Vein Open Sodium Phosphate (Phosphorus #1 250 Mg Tab) 250 mg PO QID [facility] Last Admin: 02/02/21 06:38 Dose: 250 mg Documented by: Discontinued Medications Sodium Chloride (Normal Saline) 1,000 mls @ 999 mls/hr IV .BOLUS ONE Stop: 02/01/21 12:45 Last Admin: 02/01/21 11:48 Dose: 999 mls/hr Documented by: Lactated Ringer's (Ringers, Lactated) 1,000 mls @ 150 mls/hr IV ASDIRECTED [facility] Last Admin: 02/02/21 03:01 Dose: 150 mls/hr Documented by: Pantoprazole Sodium 80 mg/ (Sodium Chloride) 20 mls @ 420 mls/hr IVPUSH ONETIME ONE Stop: 02/01/21 14:44 Last Admin: 02/01/21 16:00 Dose: 420 mls/hr Documented by: Sodium Chloride (Normal Saline) Confirm Administered Dose 20 mls @ as directed .ROUTE .STK-MED ONE Stop: 02/01/21 16:03 Last Admin: 02/01/21 16:06 Dose: Not Given Documented by: Magnesium Sulfate 2 gm/ Premix 50 mls @ 12.5 mls/hr IV ONETIME ONE Stop: 02/01/21 20:47 Last Admin: 02/02/21 02:58 Dose: Not Given Documented by: Lactated Ringer's (Ringers, Lactated) 1,000 mls @ 999 mls/hr IV .BOLUS ONE Stop: 02/01/21 21:52 Last Admin: 02/01/21 22:19 Dose: 999 mls/hr Documented by: Magnesium Sulfate 2 gm/ Premix 50 mls @ 12.5 mls/hr IV ONETIME ONE Stop: 02/02/21 06:29 Last Admin: 02/02/21 02:57 Dose: 12.5 mls/hr Documented by: Pantoprazole Sodium (Pantoprazole 40 Mg Vial) Confirm Administered Dose 80 mg .ROUTE .STK-MED ONE Stop: 02/01/21 16:00 Last Admin: 02/01/21 16:03 Dose: Not Given Documented by: - Exam Quality Assessment: Supplemental Oxygen General: Alert, Oriented, Cooperative, No Acute Distress HEENT: Pupils Equal, Pupils Reactive. No: Scleral Icterus Neck: Supple Lungs: Clear to Auscultation, Normal Respiratory Effort GI/Abdominal Exam: Normal Bowel Sounds, Soft, Non-Tender (Female) Exam: Deferred Back Exam: Normal Inspection Extremities: Normal Inspection, Normal Range of Motion, No Pedal Edema Skin: Warm, Dry, Intact Neurological: No New Focal Deficit Psy/Mental Status: Alert, Normal Affect, Normal Mood Sepsis Event Note - Evaluation Sepsis Screening Result: No Definite Risk - Focused Exam Vital Signs: Vital Signs Temp Temp Pulse Resp BP Pulse Ox 02/02/21 08:00 99.3 F 63 18 122/50 L 95 02/02/21 04:20 98.4 F 91 16 123/44 L 97 02/02/21 04:03 98.3 F 91 16 123/44 L 97 02/02/21 01:25 98.5 F 67 16 110/44 L 96 02/02/21 01:10 98.5 F 80 16 115/38 L 98 02/02/21 00:28 98.1 F 78 16 120/36 L 98 02/01/21 22:45 98.4 F 94 16 95/45 L 97 Consult PN Assessment/Plan Procedures: Procedures AGENT NOS ASSAY W/OPTIC (10/21/16) ASSAY OF AMYLASE (03/29/17) ASSAY OF CREATININE (06/08/14) ASSAY OF FREE THYROXINE (11/13/13) ASSAY OF LACTIC ACID (10/11/16) ASSAY OF LIPASE (03/29/17) ASSAY OF MAGNESIUM (01/12/20) ASSAY OF SERUM SODIUM (01/12/20) ASSAY OF TROPONIN QUANT (01/27/20) ASSAY OF UREA NITROGEN (06/08/14) ASSAY THYROID STIM HORMONE (01/27/20) MANISHA DNA DIR PROBE (11/17/16) CHEST X-RAY 1 VIEW FRONTAL (03/29/17) CHEST X-RAY 2VW FRONTAL&LATL (07/22/15) CLOSTRIDIUM AG IA (10/21/16) COLONOSCOPY AND BIOPSY (11/26/18) COLONOSCOPY W/LESION REMOVAL (08/03/14) COMPLETE CBC AUTOMATED (11/01/15) COMPLETE CBC W/AUTO DIFF WBC (01/27/20) COMPREHEN METABOLIC PANEL (01/27/20) CT ABD & PELV 1/> REGNS (06/08/14) CT ABD & PELV W/CONTRAST (01/23/20) CT ABD & PELVIS W/O CONTRAST (09/24/18) CT LUMBAR SPINE W/O DYE (11/19/13) CT MAXILLOFACIAL W/O DYE (12/25/19) CT PELVIS W/O DYE (11/19/13) CULTURE AEROBIC IDENTIFY (06/01/14) CULTURE OTHR SPECIMN AEROBIC (11/29/16) ELECTROCARDIOGRAM TRACING (01/27/20) EMERGENCY DEPT VISIT (01/27/20) EMERGENCY DEPT VISIT (01/07/20) EMERGENCY DEPT VISIT (03/29/17) EMERGENCY DEPT VISIT (11/11/16) EMERGENCY DEPT VISIT (10/21/16) EMERGENCY DEPT VISIT (08/30/15) EMERGENCY DEPT VISIT (11/19/13) FREE ASSAY (FT-3) (11/13/13) GAIT TRAINING THERAPY (11/19/13) NUNO VAG DNA DIR PROBE (11/17/16) GLUCOSE BLOOD TEST (01/12/20) GLYCOSYLATED HEMOGLOBIN TEST (12/17/19) HYDRATE IV INFUSION ADD-ON (01/12/20) IMMUNOASSAY TUMOR CA 125 (06/01/14) METABOLIC PANEL TOTAL CA (01/12/20) MICROBE SUSCEPTIBLE MEGAN (02/04/18) MRI CHEST SPINE W/O DYE (07/13/20) MRI LUMBAR SPINE W/O DYE (02/10/20) OCCULT BLOOD FECES (09/24/18) OFFICE O/P EST HI 40-54 MIN (06/01/14) OFFICE O/P EST LOW 20-29 MIN (09/11/18) OFFICE O/P EST MINIMAL PROB (02/12/20) OFFICE O/P EST MOD 30-39 MIN (09/19/16) OFFICE O/P EST SF 10-19 MIN (08/13/14) OFFICE O/P NEW SF 15-29 MIN (11/27/16) PCV13 VACCINE IM (11/01/15) PROTHROMBIN TIME (03/29/17) PT EVALUATION (11/19/13) ROUTINE VENIPUNCTURE (07/05/20) SMEAR WET [place] SALINE/INK (04/29/14) STOOL CULTR AEROBIC BACT EA (10/21/16) THER/PROPH/DIAG INJ IV PUSH (11/19/13) THER/PROPH/DIAG INJ SC/IM (11/27/16) THER/PROPH/DIAG IV INF INIT (01/12/20) THERAPEUTIC ACTIVITIES (11/19/13) THERAPEUTIC EXERCISES (11/19/13) TISSUE EXAM BY PATHOLOGIST (08/03/14) TRICHOMONAS VAGIN DIR PROBE (11/17/16) TX/PRO/DX INJ NEW DRUG ADDON (11/19/13) TX/PROPH/DG ADDL SEQ IV INF (01/12/20) URINALYSIS AUTO W/O SCOPE (02/18/20) URINALYSIS AUTO W/SCOPE (02/09/20) URINE BACTERIA CULTURE (02/04/18) URINE CULTURE/COLONY COUNT (02/09/20) VITAMIN D 25 HYDROXY (07/05/20) X-RAY EXAM ABDOMEN 2 VIEWS (01/27/20) X-RAY EXAM CHEST 1 VIEW (01/12/20) X-RAY EXAM COMPLETE ABDOMEN (01/07/20) X-RAY EXAM OF ABDOMEN (11/13/13) X-RAY EXAM THORAC SPINE 2VWS (07/05/20) (1) Patient takes NSAID (non-steroid anti-inflammatory drug) SNOMED Code(s): 824485058, 321950057 Code(s): Z79.1 - DETENTION (CURRENT) USE OF NON-STEROIDAL NON-INFLAM (NSAID) Priority: Medium Current Visit: Yes (2) Anemia SNOMED Code(s): 854104110 Code(s): D64.9 - ANEMIA, UNSPECIFIED Current Visit: Yes Qualifiers: Iron deficiency anemia type: chronic blood loss (3) GI bleed SNOMED Code(s): 64048548 Code(s): K92.2 - GASTROINTESTINAL HEMORRHAGE, UNSPECIFIED Priority: High Current Visit: Yes Problem List Initiated/Reviewed/Updated: Yes Plan: Esophagogastroduodenoscopy with biopsy. The operative procedure, along with the risks, including, but not limited to, bleeding, perforation, and the need for surgery were discussed with the patient who voices understanding, offers no questions and wishes to proceed.
--- NOTE | 2021-02-02 22:49 | PCM.EKG ---
#1 Interpretation EKG Date: 02/02/21 [place]: Normal P-Wave: Present EKG Interpretation Comments: Sinus bradycardia with PAC
[2021-02-03] MEDS: Phosphorus #1 250 MG Tab PO SCH ×4 (00:04→18:02)
[2021-02-03] MEDS: Lactated Ringers 1,000 ML IV SCH (05:52)
[2021-02-03 06:35] LABS: BLOOD UREA NITROGEN,BUN 10 mg/dL (7.0-18.0); CARBON DIOXIDE,CO2 25.2 mmol/L (21.0-32.0); CHLORIDE,CL 109 mmol/L (98-107); GLUCOSE RANDOM 90 mg/dL (74-106); POTASSIUM,K 3.7 mmol/L (3.5-5.1); SODIUM,NA 139 mmol/L (136-145)
[2021-02-03] MEDS ORDERED: Lidocaine 2% 5 ML SDV ONE (07:00)
[2021-02-03] MEDS ORDERED: Ondansetron 4 MG/2 ML SDV ONE (07:00)
[2021-02-03] MEDS ORDERED: Propofol 200 MG/20 ML SDV ONE (07:00)
[2021-02-03] MEDS ORDERED: fentaNYL 100 MCG/2 ML SDV ONE (07:00)
--- NOTE | 2021-02-03 07:50 | PCM.OPNOTE ---
- General Post-Op/Procedure Note Date of Surgery/Procedure: 02/03/21 Operative Procedure(s): Esophagogastroduodenoscopy with biopsy. Pre Op Diagnosis: GI bleed with anemia. History of NSAIDs use. Post-Op Diagnosis: Acute prepyloric ulcer with fresh blood in the stomach. No acute arterial bleed. Primary Surgeon: Edgar Obregon Condition: Stable Free Text/Narrative:: Intake & Output 02/02/21 02/03/21 02/03/21 19:59 03:59 11:59 Intake Total 1156 1797 Output Total 1580 0620 Balance -424 -603 DICTATION 312932 CPT CODE 94447
[2021-02-03] MEDS ORDERED: Lactated Ringers 1,000 ML IV SCH (08:00)
--- NOTE | 2021-02-03 08:00 | PCM.POSTAN ---
POST ANESTHESIA ASSESSMENT - MENTAL STATUS Mental Status: Alert - VITAL SIGNS Vital Signs: Last Vital Signs Temp 98.1 F 02/03/21 07:51 Pulse 68 02/03/21 07:57 Resp 20 02/03/21 07:57 BP 130/50 L 02/03/21 07:57 Pulse Ox 94 L 02/03/21 07:57 - RESPIRATORY Respiratory Status: Respiratory Rate WNL, Airway Patent, O2 Saturation Stable (Pt doing well post-op)
--- NOTE | 2021-02-03 08:04 | PCM48HPAN ---
Post Anesthesia Note - EVALUATION WITHIN 48HRS OF ANESTHETIC Vital Signs in Normal Range: Yes Patient Participated in Evaluation: Yes Respiratory Function Stable: Yes Airway Patent: Yes Cardiovascular Function Stable: Yes Hydration Status Stable: Yes Pain Control Satisfactory: Yes Nausea and Vomiting Control Satisfactory: Yes Mental Status Recovered: Yes Vital Signs: Last Vital Signs Temp 98.1 F 02/03/21 07:51 Pulse 68 02/03/21 07:57 Resp 20 02/03/21 07:57 BP 130/50 L 02/03/21 07:57 Pulse Ox 94 L 02/03/21 07:57 - COMMENTS/OBSERVATIONS Free Text/Narrative:: Pt doing well post-op. VSS. No apparent anesthetic complications. Dr. Jama Panda
--- NOTE | 2021-02-03 08:10 | OR ---
SURGEON: Edgar Obregon M.D. DATE OF PROCEDURE: 02/03/2021 OPERATION PERFORMED: Esophagogastroduodenoscopy with biopsy. PRIMARY SURGEON: Edgar Obregon MD. ANESTHESIA: MAC. ASA CLASSIFICATION: III. PREOPERATIVE DIAGNOSES: 1. Gastrointestinal bleed. 2. Anemia. 3. History of nonsteroidal anti-inflammatory drugs use. POSTOPERATIVE DIAGNOSIS: Gastric ulcer. DESCRIPTION OF PROCEDURE: The patient was taken to the endoscopy room and positioned on the endoscopy table in the supine position. Time-out was called for appropriate identification of the patient and procedure. Monitored anesthesia care was provided. The bite block was placed between the patient's teeth. The gastroscope was inserted through the bite block into the oropharynx and advanced without difficulty through the esophagus and stomach into the duodenum where examination was now carried out in a retrograde fashion. Fresh blood was seen in the stomach and then carried on down into the duodenum. The duodenum shows no acute inflammatory changes or ulcerations. The stomach does show a mild-to- moderate gastritis and a probably 4 mm to 5 mm pre-pyloric ulcer. Several biopsies of the antrum were obtained to look for the presence of Helicobacter pylori. The gastroscope was then retroflexed to visualize the proximal stomach. No ulcers or inflammatory changes are noted along the greater or lesser curvatures or in the cardia. The gastroscope was then straightened and slowly withdrawn. There is no significant pumping coming from the ulcer bed, although there is still some fresh blood in the stomach. The GE junction is well defined and shows no acute inflammatory changes or ulcerations. The esophagus demonstrates good contractility. No mid or proximal lesions were identified. The vocal cords were briefly visualized as the scope was withdrawn and noted to move symmetrically. The gastroscope was then removed with the patient having tolerated the procedure well. She was taken to recovery room in satisfactory condition. JOSH / ALEXSANDER /[id number]
--- NOTE | 2021-02-03 08:32 | PCM.PREANE ---
Preanesthetic Assessment - Anesthesia/Transfusion/Family Hx Anesthesia History: Prior Anesthesia Without Reaction Family History of Anesthesia Reaction: No Transfusion History: No Prior Transfusion(s) Intubation History: Unknown - Review of Systems Cardiovascular: Other (A fib) Gastrointestinal: Other (active upper GI bleed) - Physical Assessment NPO Status Date: 02/03/21 NPO Status Time: 00:00 Vital Signs: Last Vital Signs Temp 36.7 C 02/03/21 07:51 Pulse 68 02/03/21 07:57 Resp 20 02/03/21 07:57 BP 130/50 L 02/03/21 07:57 Pulse Ox 94 L 02/03/21 07:57 Height: 1.64 m Weight: 63.321 kg ASA Class: 3 - Lab Values: Laboratory Last Values WBC 4.84 K/uL (4.0-11.0) 02/03/21 05:35 RBC 2.96 M/uL (4.30-5.90) L 02/03/21 05:35 Hgb 9.6 g/dL (12.0-16.0) L 02/03/21 05:35 Hct 27.8 % (36.0-46.0) L 02/03/21 05:35 MCV 93.9 fL (80.0-98.0) 02/03/21 05:35 MCH 32.4 pg (27.0-32.0) H 02/03/21 05:35 MCHC 34.5 g/dL (31.0-37.0) 02/03/21 05:35 RDW Std Deviation 56.6 fl (28.0-62.0) 02/03/21 05:35 RDW Coeff of Marimar 17 % (11.0-15.0) H 02/03/21 05:35 Plt Count 198 K/uL (150-400) 02/03/21 05:35 MPV 11.30 fL (7.40-12.00) 02/03/21 05:35 Neut % (Auto) 48.4 % (48.0-80.0) 02/03/21 05:35 Lymph % (Auto) 37.4 % (16.0-40.0) 02/03/21 05:35 [place] % (Auto) 10.3 % (0.0-15.0) 02/03/21 05:35 Eos % (Auto) 3.3 % (0.0-7.0) 02/03/21 05:35 Baso % (Auto) 0.6 % (0.0-1.5) 02/03/21 05:35 Neut # (Auto) 2.3 K/uL (1.4-5.7) 02/03/21 05:35 Lymph # (Auto) 1.8 K/uL (0.6-2.4) 02/03/21 05:35 [place] # (Auto) 0.5 K/uL (0.0-0.8) 02/03/21 05:35 Eos # (Auto) 0.2 K/uL (0.0-0.7) 02/03/21 05:35 Baso # (Auto) 0.0 K/uL (0.0-0.1) 02/03/21 05:35 Nucleated RBC % 0.0 /100WBC 02/03/21 05:35 Nucleated RBCs # 0 K/uL 02/03/21 05:35 Smear Path Review SENT TO PATHOLOGY 02/01/21 13:43 Absolute Retic 27.80 K/uL (20-80) 02/01/21 14:56 Percent Retic 1.4 % (0.5-1.5) 02/01/21 14:56 Immature Retic Fraction 9 % 02/01/21 14:56 Haptoglobin 69 mg/dL (44-215) 02/01/21 15:35 Sodium 139 mmol/L (136-145) 02/03/21 05:35 Potassium 3.7 mmol/L (3.5-5.1) 02/03/21 05:35 Chloride 109 mmol/L (98-107) H 02/03/21 05:35 Carbon Dioxide 25.2 mmol/L (21.0-32.0) 02/03/21 05:35 BUN 10 mg/dL (7.0-18.0) 02/03/21 05:35 Creatinine 0.5 mg/dL (0.6-1.0) L 02/03/21 05:35 Est Cr Clr Drug Dosing 75.16 mL/min 02/03/21 05:35 Estimated GFR (MDRD) > 60.0 ml/min 02/03/21 05:35 Glucose 90 mg/dL (74-106) 02/03/21 05:35 Lactic Acid 1.7 mmol/L (0.4-2.0) 02/01/21 17:00 Calcium 7.5 mg/dL (8.5-10.1) L 02/03/21 05:35 Phosphorus 3.1 mg/dL (2.6-4.7) 02/02/21 06:02 Magnesium 2.0 mg/dL (1.8-2.4) 02/03/21 05:35 Iron 102 ug/dL (50-175) 02/01/21 12:10 TIBC 185 ug/dL (250-450) L 02/01/21 12:10 % Saturation 55.14 % (20-55) H 02/01/21 12:10 Transferrin 129.5 02/01/21 12:10 Ferritin 378 ng/mL (8-252) H 02/01/21 12:10 Total Bilirubin 0.4 mg/dL (0.2-1.0) 02/01/21 12:10 Total Bilirubin 0.4 mg/dL (0.2-1.0) 02/01/21 12:10 Direct Bilirubin 0.10 mg/dL (0.0-0.5) 02/01/21 12:10 Indirect Bilirubin 0.30 02/01/21 12:10 AST 14 IU/L (15-37) L 02/01/21 12:10 ALT 10 IU/L (14-63) L 02/01/21 12:10 Alkaline Phosphatase 31 U/L (46-116) L 02/01/21 12:10 Lactate Dehydrogenase 549 U/L (81-234) H 02/01/21 12:10 Creatine Kinase 36 U/L (26-308) 02/01/21 12:10 Troponin I < 0.050 ng/mL (0.000-0.056) 02/01/21 12:10 Total Protein 4.8 g/dL (6.4-8.2) L 02/01/21 12:10 Albumin 2.8 g/dL (3.4-5.0) L 02/01/21 12:10 Globulin 2.0 g/dL (2.6-4.0) L 02/01/21 12:10 Albumin/Globulin Ratio 1.4 (0.9-1.6) 02/01/21 12:10 Lipase 57 U/L (73-393) L 02/01/21 12:10 Vitamin B12 291 pg/mL (193-986) 02/01/21 12:10 Folate 16.50 ng/mL (8.60-58.90) 02/01/21 12:10 SARS-CoV-2 RNA (FARIDEH) NEGATIVE (NEGATIVE) 02/01/21 13:10 Blood Type A POSITIVE 02/01/21 13:43 Antibody Screen NEGATIVE 02/01/21 13:43 Crossmatch See Detail 02/01/21 13:43 - Allergies Allergies/Adverse Reactions: Allergies Allergy/AdvReac Type Severity Reaction Status Date / Time No Known Allergies Allergy Verified 02/01/21 18:35 - Acknowledgements Anesthesia Type Planned: General Anesthesia Pt an Appropriate Candidate for the Planned Anesthesia: Yes Alternatives and Risks of Anesthesia Discussed w Pt/Guardian: Yes Pt/Guardian Understands and Agrees with Anesthesia Plan: Yes PreAnesthesia Questionnaire - Past Health History Medical/Surgical History: Denies Medical/Surgical History HEENT History: Reports: Cataract, Impaired Vision Other HEENT History: wears glasses Cardiovascular History: Reports: Hypertension, Other (See Below) Respiratory History: Reports: None, Other (See Below) Gastrointestinal History: Reports: Colon Polyp, Diverticulosis, Other (See Below) Other Gastrointestinal History: occasional heartburn, hx C-diff 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, Recurrent [employer] History: Reports: Musculoskeletal History: Reports: Arthritis, Fracture, Osteoporosis Other Musculoskeletal History: hx fx hip, fx femur and fx pelvis Neurological History: Reports: None Psychiatric History: Reports: None Endocrine/Metabolic History: Reports: Diabetes, Type II Hematologic History: Reports: None Immunologic History: Reports: None Oncologic (Cancer) History: Reports: None Dermatologic History: Reports: None - Infectious Disease History Infectious Disease History: Reports: Chicken Pox, Measles, Mumps, Rubella, Shingles - Past Surgical History Head Surgeries/Procedures: Reports: None HEENT Surgical History: Reports: Cataract Surgery Cardiovascular Surgical History: Reports: None Respiratory Surgical History: Reports: None GI Surgical History: Reports: Appendectomy, Colonoscopy, Other (See Below) Other GI Surgeries/Procedures: Esophageal hernia repair Female Surgical History: Reports: Section Endocrine Surgical History: Reports: None Musculoskeletal Surgical History: Reports: Arthroscopic Procedure, Hip Replacement Other Musculoskeletal Surgeries/Procedures:: surgical tx for fx femur, surgical tx for fx left hip Dermatological Surgical History: Reports: Skin Biopsy - SUBSTANCE USE Tobacco Use Status *Q: Never Tobacco User Second Hand Smoke Exposure: No Recreational Drug Use History: No - HOME MEDS Home Medications: Home Meds Metoprolol Succinate 50 mg PO DAILY 11/22/18 [History] lisinopriL [Lisinopril] 2.5 mg PO DAILY #30 tablet 01/13/20 [Rx] Diclofenac Sodium 1 applic TOP QID PRN 02/02/21 [History] Fluticasone Propionate [Flonase] 2 spray NASBOTH DAILY 02/02/21 [History] Potassium Chloride 10 meq PO DAILY 02/02/21 [History] - CURRENT (IN HOUSE) MEDS Current Meds: Current Medications Acetaminophen (Acetaminophen 325 Mg Tab) 650 mg PO Q4H PRN PRN Reason: Pain (Mild 1-3)/fever Pantoprazole Sodium 40 mg/ (Sodium Chloride) 10 mls @ 300 mls/hr IV Q12HR [facility] Last Admin: 02/02/21 20:36 Dose: 300 mls/hr Documented by: Lactated Ringer's (Ringers, Lactated) 1,000 mls @ 125 mls/hr IV ASDIRECTED [facility] Last Admin: 02/03/21 05:52 Dose: 100 mls/hr Documented by: Lactated Ringer's (Ringers, Lactated) 1,000 mls @ 125 mls/hr IV Q8H [facility] Ondansetron HCl (Ondansetron 4 Mg/2 Ml Sdv) 4 mg IVPUSH Q4H PRN PRN Reason: Nausea Sodium Chloride (Sodium Chloride 0.9% 2.5 Ml Syringe) 2.5 ml FLUSH ASDIRECTED PRN PRN Reason: Keep Vein Open Sodium Phosphate (Phosphorus #1 250 Mg Tab) 250 mg PO QID [facility] Last Admin: 02/03/21 05:53 Dose: Not Given Documented by: Discontinued Medications Fentanyl (Fentanyl 100 Mcg/2 Ml Sdv) Confirm Administered Dose 100 mcg .ROUTE .STK-MED ONE Stop: 02/03/21 07:01 Sodium Chloride (Normal Saline) 1,000 mls @ 999 mls/hr IV .BOLUS ONE Stop: 02/01/21 12:45 Last Admin: 02/01/21 11:48 Dose: 999 mls/hr Documented by: Lactated Ringer's (Ringers, Lactated) 1,000 mls @ 150 mls/hr IV ASDIRECTED [facility] Last Admin: 02/02/21 03:01 Dose: 150 mls/hr Documented by: Pantoprazole Sodium 80 mg/ (Sodium Chloride) 20 mls @ 420 mls/hr IVPUSH ONETIME ONE Stop: 02/01/21 14:44 Last Admin: 02/01/21 16:00 Dose: 420 mls/hr Documented by: Sodium Chloride (Normal Saline) Confirm Administered Dose 20 mls @ as directed .ROUTE .STK-MED ONE Stop: 02/01/21 16:03 Last Admin: 02/01/21 16:06 Dose: Not Given Documented by: Magnesium Sulfate 2 gm/ Premix 50 mls @ 12.5 mls/hr IV ONETIME ONE Stop: 02/01/21 20:47 Last Admin: 02/02/21 02:58 Dose: Not Given Documented by: Lactated Ringer's (Ringers, Lactated) 1,000 mls @ 999 mls/hr IV .BOLUS ONE Stop: 02/01/21 21:52 Last Admin: 02/01/21 22:19 Dose: 999 mls/hr Documented by: Magnesium Sulfate 2 gm/ Premix 50 mls @ 12.5 mls/hr IV ONETIME ONE Stop: 02/02/21 06:29 Last Admin: 02/02/21 02:57 Dose: 12.5 mls/hr Documented by: Lidocaine (Lidocaine 2% 5 Ml Sdv) Confirm Administered Dose 5 ml .ROUTE .STK-MED ONE Stop: 02/03/21 07:01 Ondansetron HCl (Ondansetron 4 Mg/2 Ml Sdv) Confirm Administered Dose 4 mg .ROUTE .STK-MED ONE Stop: 02/03/21 07:01 Pantoprazole Sodium (Pantoprazole 40 Mg Vial) Confirm Administered Dose 80 mg .ROUTE .STK-MED ONE Stop: 02/01/21 16:00 Last Admin: 02/01/21 16:03 Dose: Not Given Documented by: Propofol (Propofol 200 Mg/20 Ml Sdv) Confirm Administered Dose 200 mg .ROUTE .STK-MED ONE Stop: 02/03/21 07:01
[2021-02-03] MEDS: Pantoprazole 40 MG in Sodium Chloride 0.9% 10 ML IV SCH ×2 (09:02→21:39)
[2021-02-03] MEDS: Acetaminophen 325 MG Tab PO PRN (10:49)
[2021-02-03] MEDS: Sucralfate Suspension 1 GM/10 ML Cup PO SCH ×4 (10:55→21:39)
[2021-02-03] MEDS ORDERED: Aluminum Hydroxide/Magnesium Hydroxide/Simethicone Susp 30 ML Cup PO PRN (11:35)
--- NOTE | 2021-02-03 14:58 | PCM.PN ---
- General Info Date of Service: 02/03/21 Admission Dx/Problem (Free Text): Admission Diagnosis/Problem Admission Diagnosis/Problem GI bleed not requiring more than 4 units of blood in 24 hours, ICU, or surgery Subjective Update: Patient seen arriving back from PACU. She is alert and oriented and doing well. Daughter bedside. No concerns at this time. Denies any chest pain shortness of breath or abdominal pain. Did have a couple more constipated stools overnight that were black in color. Dr. Obregon did discuss with family f indings of EGD and ulcer. Like to monitor today to ensure patient is doing well Functional Status: Reports: Pain Controlled, Tolerating Diet, Ambulating, Urinating - Review of Systems General: Reports: No Symptoms. Denies: Weakness, Fatigue Pulmonary: Reports: No Symptoms. Denies: Shortness of Breath Cardiovascular: Reports: No Symptoms. Denies: Chest Pain Gastrointestinal: Reports: No Symptoms. Denies: Abdominal Pain, Nausea, Vomiting 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: Reports: No Symptoms Musculoskeletal: Reports: No Symptoms Skin: Reports: No Symptoms Neurological: Reports: No Symptoms Psychiatric: Reports: No Symptoms - Patient Data Vitals - Most Recent: Last Vital Signs Temp 97.2 F 02/03/21 12:00 Pulse 73 02/03/21 12:00 Resp 18 02/03/21 12:00 BP 120/58 L 02/03/21 12:00 Pulse Ox 89 L 02/03/21 12:00 Weight - Most Recent: 63.321 kg I&O - Last 24 Hours: Intake & Output 02/02/21 02/03/21 02/03/21 22:59 06:59 14:59 Intake Total 820 1797 350 Output Total 1580 2400 Balance -760 -603 350 Lab Results Last 24 Hours: Laboratory Results - last 24 hr 02/01/21 02/01/21 02/02/21 Range/Units 13:43 15:35 15:33 WBC (4.0-11.0) K/uL RBC (4.30-5.90) M/uL Hgb 10.4 L (12.0-16.0) g/dL Hct 29.1 L (36.0-46.0) % MCV (80.0-98.0) fL MCH (27.0-32.0) pg MCHC (31.0-37.0) g/dL RDW Std Deviation (28.0-62.0) fl RDW Coeff of Marimar (11.0-15.0) % Plt Count (150-400) K/uL MPV (7.40-12.00) fL Neut % (Auto) (48.0-80.0) % Lymph % (Auto) (16.0-40.0) % Weld % (Auto) (0.0-15.0) % Eos % (Auto) (0.0-7.0) % Baso % (Auto) (0.0-1.5) % Neut # (Auto) (1.4-5.7) K/uL Lymph # (Auto) (0.6-2.4) K/uL Weld # (Auto) (0.0-0.8) K/uL Eos # (Auto) (0.0-0.7) K/uL Baso # (Auto) (0.0-0.1) K/uL Nucleated RBC % /100WBC Nucleated RBCs # K/uL Haptoglobin 69 (44-215) mg/dL Sodium (136-145) mmol/L Potassium (3.5-5.1) mmol/L Chloride (98-107) mmol/L Carbon Dioxide (21.0-32.0) mmol/L BUN (7.0-18.0) mg/dL Creatinine (0.6-1.0) mg/dL Est Cr Clr Drug Dosing mL/min Estimated GFR (MDRD) ml/min Glucose (74-106) mg/dL Calcium (8.5-10.1) mg/dL Magnesium (1.8-2.4) mg/dL Crossmatch See Detail 02/03/21 02/03/21 Range/Units 05:35 05:35 WBC 4.84 (4.0-11.0) K/uL RBC 2.96 L (4.30-5.90) M/uL Hgb 9.6 L (12.0-16.0) g/dL Hct 27.8 L (36.0-46.0) % MCV 93.9 (80.0-98.0) fL MCH 32.4 H (27.0-32.0) pg MCHC 34.5 (31.0-37.0) g/dL RDW Std Deviation 56.6 (28.0-62.0) fl RDW Coeff of Marimar 17 H (11.0-15.0) % Plt Count 198 (150-400) K/uL MPV 11.30 (7.40-12.00) fL Neut % (Auto) 48.4 (48.0-80.0) % Lymph % (Auto) 37.4 (16.0-40.0) % Weld % (Auto) 10.3 (0.0-15.0) % Eos % (Auto) 3.3 (0.0-7.0) % Baso % (Auto) 0.6 (0.0-1.5) % Neut # (Auto) 2.3 (1.4-5.7) K/uL Lymph # (Auto) 1.8 (0.6-2.4) K/uL Weld # (Auto) 0.5 (0.0-0.8) K/uL Eos # (Auto) 0.2 (0.0-0.7) K/uL Baso # (Auto) 0.0 (0.0-0.1) K/uL Nucleated RBC % 0.0 /100WBC Nucleated RBCs # 0 K/uL Haptoglobin (44-215) mg/dL Sodium 139 (136-145) mmol/L Potassium 3.7 (3.5-5.1) mmol/L Chloride 109 H (98-107) mmol/L Carbon Dioxide 25.2 (21.0-32.0) mmol/L BUN 10 (7.0-18.0) mg/dL Creatinine 0.5 L (0.6-1.0) mg/dL Est Cr Clr Drug Dosing 75.16 mL/min Estimated GFR (MDRD) > 60.0 ml/min Glucose 90 (74-106) mg/dL Calcium 7.5 L (8.5-10.1) mg/dL Magnesium 2.0 (1.8-2.4) mg/dL Crossmatch Med Orders - Current: Current Medications Acetaminophen (Acetaminophen 325 Mg Tab) 650 mg PO Q4H PRN PRN Reason: Pain (Mild 1-3)/fever Last Admin: 02/03/21 10:49 Dose: 650 mg Documented by: Al Hydroxide/Mg Hydroxide (Aluminum Hydroxide/Magnesium Hydroxide/Simethicone Susp 30 Ml Cup) 30 ml PO Q6H PRN PRN Reason: Indigestion Pantoprazole Sodium 40 mg/ (Sodium Chloride) 10 mls @ 300 mls/hr IV Q12HR [facility] Last Admin: 02/03/21 09:02 Dose: 300 mls/hr Documented by: Lactated Ringer's (Ringers, Lactated) 1,000 mls @ 125 mls/hr IV Q8H [facility] Last Admin: 02/03/21 08:15 Dose: 125 mls/hr Documented by: Ondansetron HCl (Ondansetron 4 Mg/2 Ml Sdv) 4 mg IVPUSH Q4H PRN PRN Reason: Nausea Sodium Chloride (Sodium Chloride 0.9% 2.5 Ml Syringe) 2.5 ml FLUSH ASDIRECTED PRN PRN Reason: Keep Vein Open Sodium Phosphate (Phosphorus #1 250 Mg Tab) 250 mg PO QID [facility] Last Admin: 02/03/21 11:01 Dose: 250 mg Documented by: Sucralfate (Sucralfate Suspension 1 Gm/10 Ml Cup) 1 gm PO QIDACANDBED [facility] Last Admin: 02/03/21 10:59 Dose: 1 gm Documented by: Discontinued Medications Fentanyl (Fentanyl 100 Mcg/2 Ml Sdv) Confirm Administered Dose 100 mcg .ROUTE .STK-MED ONE Stop: 02/03/21 07:01 Sodium Chloride (Normal Saline) 1,000 mls @ 999 mls/hr IV .BOLUS ONE Stop: 02/01/21 12:45 Last Admin: 02/01/21 11:48 Dose: 999 mls/hr Documented by: Lactated Ringer's (Ringers, Lactated) 1,000 mls @ 150 mls/hr IV ASDIRECTED [facility] Last Admin: 02/02/21 03:01 Dose: 150 mls/hr Documented by: Pantoprazole Sodium 80 mg/ (Sodium Chloride) 20 mls @ 420 mls/hr IVPUSH ONETIME ONE Stop: 02/01/21 14:44 Last Admin: 02/01/21 16:00 Dose: 420 mls/hr Documented by: Sodium Chloride (Normal Saline) Confirm Administered Dose 20 mls @ as directed .ROUTE .STK-MED ONE Stop: 02/01/21 16:03 Last Admin: 02/01/21 16:06 Dose: Not Given Documented by: Magnesium Sulfate 2 gm/ Premix 50 mls @ 12.5 mls/hr IV ONETIME ONE Stop: 02/01/21 20:47 Last Admin: 02/02/21 02:58 Dose: Not Given Documented by: Lactated Ringer's (Ringers, Lactated) 1,000 mls @ 999 mls/hr IV .BOLUS ONE Stop: 02/01/21 21:52 Last Admin: 02/01/21 22:19 Dose: 999 mls/hr Documented by: Magnesium Sulfate 2 gm/ Premix 50 mls @ 12.5 mls/hr IV ONETIME ONE Stop: 02/02/21 06:29 Last Admin: 02/02/21 02:57 Dose: 12.5 mls/hr Documented by: Lactated Ringer's (Ringers, Lactated) 1,000 mls @ 125 mls/hr IV ASDIRECTED [facility] Last Admin: 02/03/21 05:52 Dose: 100 mls/hr Documented by: Lidocaine (Lidocaine 2% 5 Ml Sdv) Confirm Administered Dose 5 ml .ROUTE .STK-MED ONE Stop: 02/03/21 07:01 Ondansetron HCl (Ondansetron 4 Mg/2 Ml Sdv) Confirm Administered Dose 4 mg .ROUTE .STK-MED ONE Stop: 02/03/21 07:01 Pantoprazole Sodium (Pantoprazole 40 Mg Vial) Confirm Administered Dose 80 mg .ROUTE .STK-MED ONE Stop: 02/01/21 16:00 Last Admin: 02/01/21 16:03 Dose: Not Given Documented by: Propofol (Propofol 200 Mg/20 Ml Sdv) Confirm Administered Dose 200 mg .ROUTE .STK-MED ONE Stop: 02/03/21 07:01 - Exam General: Alert, Oriented, Cooperative Lungs: Clear to Auscultation, Normal Respiratory Effort Cardiovascular: Regular Rate, Regular Rhythm GI/Abdominal Exam: Normal Bowel Sounds, Soft, Non-Tender Back Exam: Normal Inspection, Full Range of Motion Extremities: Normal Inspection, Normal Range of Motion, Non-Tender, No Pedal Edema Neurological: No New Focal Deficit Psy/Mental Status: Alert, Normal Affect, Normal Mood - Patient Data Lab Results Last 24 hrs: Laboratory Results - last 24 hr 02/01/21 02/01/21 02/02/21 Range/Units 13:43 15:35 15:33 WBC (4.0-11.0) K/uL RBC (4.30-5.90) M/uL Hgb 10.4 L (12.0-16.0) g/dL Hct 29.1 L (36.0-46.0) % MCV (80.0-98.0) fL MCH (27.0-32.0) pg MCHC (31.0-37.0) g/dL RDW Std Deviation (28.0-62.0) fl RDW Coeff of Marimar (11.0-15.0) % Plt Count (150-400) K/uL MPV (7.40-12.00) fL Neut % (Auto) (48.0-80.0) % Lymph % (Auto) (16.0-40.0) % Weld % (Auto) (0.0-15.0) % Eos % (Auto) (0.0-7.0) % Baso % (Auto) (0.0-1.5) % Neut # (Auto) (1.4-5.7) K/uL Lymph # (Auto) (0.6-2.4) K/uL Weld # (Auto) (0.0-0.8) K/uL Eos # (Auto) (0.0-0.7) K/uL Baso # (Auto) (0.0-0.1) K/uL Nucleated RBC % /100WBC Nucleated RBCs # K/uL Haptoglobin 69 (44-215) mg/dL Sodium (136-145) mmol/L Potassium (3.5-5.1) mmol/L Chloride (98-107) mmol/L Carbon Dioxide (21.0-32.0) mmol/L BUN (7.0-18.0) mg/dL Creatinine (0.6-1.0) mg/dL Est Cr Clr Drug Dosing mL/min Estimated GFR (MDRD) ml/min Glucose (74-106) mg/dL Calcium (8.5-10.1) mg/dL Magnesium (1.8-2.4) mg/dL Crossmatch See Detail 02/03/21 02/03/21 Range/Units 05:35 05:35 WBC 4.84 (4.0-11.0) K/uL RBC 2.96 L (4.30-5.90) M/uL Hgb 9.6 L (12.0-16.0) g/dL Hct 27.8 L (36.0-46.0) % MCV 93.9 (80.0-98.0) fL MCH 32.4 H (27.0-32.0) pg MCHC 34.5 (31.0-37.0) g/dL RDW Std Deviation 56.6 (28.0-62.0) fl RDW Coeff of Marimar 17 H (11.0-15.0) % Plt Count 198 (150-400) K/uL MPV 11.30 (7.40-12.00) fL Neut % (Auto) 48.4 (48.0-80.0) % Lymph % (Auto) 37.4 (16.0-40.0) % Weld % (Auto) 10.3 (0.0-15.0) % Eos % (Auto) 3.3 (0.0-7.0) % Baso % (Auto) 0.6 (0.0-1.5) % Neut # (Auto) 2.3 (1.4-5.7) K/uL Lymph # (Auto) 1.8 (0.6-2.4) K/uL Weld # (Auto) 0.5 (0.0-0.8) K/uL Eos # (Auto) 0.2 (0.0-0.7) K/uL Baso # (Auto) 0.0 (0.0-0.1) K/uL Nucleated RBC % 0.0 /100WBC Nucleated RBCs # 0 K/uL Haptoglobin (44-215) mg/dL Sodium 139 (136-145) mmol/L Potassium 3.7 (3.5-5.1) mmol/L Chloride 109 H (98-107) mmol/L Carbon Dioxide 25.2 (21.0-32.0) mmol/L BUN 10 (7.0-18.0) mg/dL Creatinine 0.5 L (0.6-1.0) mg/dL Est Cr Clr Drug Dosing 75.16 mL/min Estimated GFR (MDRD) > 60.0 ml/min Glucose 90 (74-106) mg/dL Calcium 7.5 L (8.5-10.1) mg/dL Magnesium 2.0 (1.8-2.4) mg/dL Crossmatch Result Diagrams: 02/03/21 05:35 02/03/21 05:35 Sepsis Event Note - Evaluation Sepsis Screening Result: No Definite Risk - Focused Exam Vital Signs: Vital Signs Temp Pulse Resp BP BP Pulse Ox 02/03/21 12:00 97.2 F 73 18 120/58 L 89 L 02/03/21 11:00 97.2 F 59 L 18 124/52 L 117/50 L 89 L 02/03/21 10:06 97.7 F 68 19 104/51 L 91 L 02/03/21 10:00 97.2 F 57 L 113/49 L 90 L 02/03/21 09:30 97.5 F 66 20 109/46 L 89 L 02/03/21 08:45 54 L 104/51 L 104/51 L 90 L 02/03/21 08:30 49 L 104/46 L 109/46 L 92 L 02/03/21 08:16 108/51 L 02/03/21 08:15 56 L 108/51 L 90 L 02/03/21 08:01 96.8 F L 55 L 127/51 L 127/51 L 92 L 02/03/21 07:57 68 20 130/50 L 94 L 02/03/21 07:52 62 18 116/65 95 02/03/21 07:51 98.1 F 72 17 130/52 L 94 L 02/03/21 07:49 90 L 02/03/21 07:47 64 24 H 123/70 93 L 02/03/21 07:42 71 16 127/62 92 L 02/03/21 04:00 97.9 F 63 18 109/53 L 93 L - Problem List & Annotations (1) Anemia SNOMED Code(s): 460067799 Code(s): D64.9 - ANEMIA, UNSPECIFIED Status: Acute Current Visit: Yes Qualifiers: Iron deficiency anemia type: chronic blood loss (2) GI bleed SNOMED Code(s): 23727015 Code(s): K92.2 - GASTROINTESTINAL HEMORRHAGE, UNSPECIFIED Status: Suspected Priority: High Current Visit: Yes (3) Generalized weakness SNOMED Code(s): 85109690 Code(s): R53.1 - WEAKNESS Status: Acute Current Visit: No (4) HTN (hypertension) SNOMED Code(s): 82015930 Code(s): I10 - ESSENTIAL (PRIMARY) HYPERTENSION Status: Chronic Current Visit: Yes (5) Hypoxia SNOMED Code(s): 411878642 Code(s): R09.02 - HYPOXEMIA Status: Acute Current Visit: Yes (6) Bigeminy SNOMED Code(s): 41011244 Code(s): I49.8 - OTHER SPECIFIED CARDIAC ARRHYTHMIAS Status: Acute Current Visit: Yes - Problem List Review Problem List Initiated/Reviewed/Updated: Yes - My Orders Last 24 Hours: My Active Orders 02/03/21 Breakfast Clear Liquid Diet [DIET] 02/03/21 08:59 Sucralfate [Carafate] 1 gm PO QIDACANDBED 02/03/21 11:29 Echo Comp wo Cont [US] Urgent 02/03/21 11:35 Alum Hydrox/Mag Hydrox/Simeth [Mag-Al Plus] 30 ml PO Q6H PRN 02/04/21 05:11 BASIC METABOLIC PANEL,BMP [CHEM] AM CBC WITH AUTO DIFF [HEME] AM MAGNESIUM [CHEM] AM 02/05/21 05:11 BASIC METABOLIC PANEL,BMP [CHEM] AM CBC WITH AUTO DIFF [HEME] AM MAGNESIUM [CHEM] AM - Plan Plan:: This 85-year-old female admitted with symptomatic anemia likely secondary to chronic GI bleed. 1. Suspected GI bleeding Hypotension resolved Transfused total of 3 units. Hemoglobin this morning 9.6 Iron studies stable no significant iron deficiency noted. Hemolysis work-up appears negative haptoglobin pending Appreciate Dr. Obregon's consultation with patient. Completed EGD this morning which showed ulcer near pylorus. IV Protonix 40 mg IV twice daily -Add Carafate with meals and at bedtime Monitor on telemetry Maintain 2 large-bore IVs at all times -Encouraged no NSAIDs at home Tylenol would be best for pain. -Maalox as needed for indigestion/heartburn 2. Hypoxia -Chest x-ray negative improving as oxygen carrying capacity has improved with resolution of anemia. Continue to monitor. 3. Hypertension Blood pressures have improved continue to hold antihypertensives at this time. -Likely consider starting lisinopril as blood pressures have been softer. Will consider continuing metoprolol on discharge. 4. Bigeminy -On telemetry overnight bigeminy was noted EKG did not capture significant findings -Echo pending VTE prophylaxis: SCDs and ambulation only GI prophylaxis: Protonix CODE STATUS: Full code Dispo: 2 to 3 days pending improvement. Consults: Dr. Obregon, general surgery Updated daughter at bedside
[2021-02-04] MEDS: Acetaminophen 325 MG Tab PO PRN (00:06)
[2021-02-04] MEDS: Phosphorus #1 250 MG Tab PO SCH ×3 (00:08→11:17)
[2021-02-04 07:09] LABS: BLOOD UREA NITROGEN,BUN 8 mg/dL (7.0-18.0); CARBON DIOXIDE,CO2 25.4 mmol/L (21.0-32.0); CHLORIDE,CL 106 mmol/L (98-107); GLUCOSE RANDOM 88 mg/dL (74-106); POTASSIUM,K 3.6 mmol/L (3.5-5.1); SODIUM,NA 140 mmol/L (136-145)
[2021-02-04] MEDS: Sucralfate Suspension 1 GM/10 ML Cup PO SCH ×2 (08:34→11:17)
[2021-02-04] MEDS: Pantoprazole 40 MG in Sodium Chloride 0.9% 10 ML IV SCH (09:03)
--- NOTE | 2021-02-04 13:31 | PCM.DCSUM1 ---
Discharge Summary - Hospital Course Brief History: this 85-year-old female with past medical history of HTN paroxysmal A. fib diverticulosis DM type II presented to the ER today with complaints of weakness and dizziness. She reports that she has been feeling very tired and lightheaded. She denies any sensation of the room spinning. She reports that she woke up with the symptoms. She denies any fevers chills chest pain shortness of breath. She did denies any abdominal pain nausea vomiting diarrhea. She did report mild heartburn overnight. She reports she had been taking ibuprofen or Aleve intermittently over the last couple weeks for some back pain. She denies any black or bloody bowel movements, though she does not pay very close attention and has not noticed any change in her bowel habits recently. She reports that she has been eating and drinking well at home. She reports that she did not take her blood pressure medication this morning as she felt tired and weak. 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 She denies any history of EGD that she is aware of. She reports sinus congestion which she felt was the cause of her dizziness initially. She denies any tobacco use no alcohol use no recreational drug use. She has no history of CAD no FL or CVA. In the ER mild leukocytosis noted at 13,000 RBC 2.06 hemoglobin 7.1 hematocrit 20.8. Platelet count 364,000 sodium 134, potassium 4.4 bicarb 20.9 BUN 42 creatinine 0.6. Glucose 180 lactic acid elevated at 3.3. Phos 2.3 magnesium 1.7. Total bilirubin 0.4 AST 14 ALT 10 alk phos 31 troponin negative lipase 57. Covid swab negative chest x-ray in the ER obtained reveals no acute cardiopulmonary process. Hemoccult done in the ER was noted to be positive but had brown stool. Patient denies any melanotic stools or bloody stools. Vitals in the ER revealed softer blood pressures 92/58 on admission which did improve to 100 over 50s to 60s. Heart rate stable 60s to 70s. Patient afebrile. Patient noted to be hypoxic on arrival 86% on room air. She was placed on 4 L oxygen and sats improved to 100%. Patient given 1 L normal saline bolus along with Protonix. She was also started on [address] Obregon consulted in the ER and would recommend EGD when patient is medically stable. EKG in the ER normal sinus rhythm rate [address]-T wave change Diagnosis: Stroke: No - Discharge Data Discharge Date: 02/04/21 Discharge Disposition: Home, W Home Health Agency 06 Condition: Stable - Referral to Home Health Date of Face to Face Encounter: 02/04/21 Reason for Homebound Status: Loli is home bound as she needs assistance with ambulation from caregiver or family to leave the house. Primary Care Physician: Kosta Garcia MD Skilled Need: Loli would benefit from skilled nurse to monitor blood pressure and vital signs due to recent change of medications and acute illness with hospitalization. - Discharge Diagnosis/Problem(s) (1) Anemia SNOMED Code(s): 815179169 ICD Code: D64.9 - ANEMIA, UNSPECIFIED Status: Acute Current Visit: Yes Qualifiers: Iron deficiency anemia type: chronic blood loss (2) GI bleed SNOMED Code(s): 57084670 ICD Code: K92.2 - GASTROINTESTINAL HEMORRHAGE, UNSPECIFIED Status: Suspected Priority: High Current Visit: Yes (3) Generalized weakness SNOMED Code(s): 13919134 ICD Code: R53.1 - WEAKNESS Status: Acute Current Visit: No (4) HTN (hypertension) SNOMED Code(s): 32952532 ICD Code: I10 - ESSENTIAL (PRIMARY) HYPERTENSION Status: Chronic Current Visit: Yes (5) Hypoxia SNOMED Code(s): 715816469 ICD Code: R09.02 - HYPOXEMIA Status: Acute Current Visit: Yes (6) Bigeminy SNOMED Code(s): 69008973 ICD Code: I49.8 - OTHER SPECIFIED CARDIAC ARRHYTHMIAS Status: Acute Current Visit: Yes - Patient Summary/Data Operative Procedure(s) Performed: Esophagogastroduodenoscopy with biopsy. Consults: Consultations 02/01/21 14:56 Consult to Physician [CONS] Stat Hospital Course: Admission diagnoses Symptomatic anemia Suspected upper GI bleed Generalized weakness Hypoxia Discharge diagnoses Anemia improved Upper GI bleed with pylorus ulcer Hypoxia resolved Bigeminy/PACs Other PMH Hypertension Diet controlled DM type II Loli was admitted secondary to symptomatic anemia with a hemoglobin of 7 on admission. Stool was noted to be brown but occult positive in the ER. He was admitted for symptomatic anemia with suspected upper GI bleed. She did report that she recently had been using more NSAIDs due to increased back pain. On admission she was also noted to be hypoxic which was likely secondary to anemia. Chest x-ray been negative and no other respiratory symptoms noted. Patient given 2 units of packed red cells along with IV fluid resuscitation and started on IV PPI twice daily. Dr. Obregon General surgery consulted for possible inpatient EGD. After IV fluids and 2 units of packed red blood cells patient stabilized hemoglobin improved 2.7. She was given 1 more unit for goal of 9 hemoglobin. Patient admittedly had hypotension patient otherwise asymptomatic. Patient went for inpatient EGD with Dr. Obregon on 02/03/2021. Pyloric ulcer noted. It appeared to have been recently bleeding but no active bleeding noted. She was continued on PPI along with starting Carafate 4 times daily. Today she is feeling much improved blood pressures are stable hemoglobin stable at 10.1. Patient will be discharged home today with Protonix 40 mg p.o. twice daily and Carafate 1 g p.o. 4 times a day with meals and at bedtime. She is to continue both of these for 1 month. She may take Maalox as needed for any heartburn symptoms. She was told explicitly to take no oral NSAIDs including ibuprofen, Motrin, Advil, Aleve. Her and family verbalized understanding. She does take diclofenac gel for back pain. She is to continue this but to monitor carefully. She could consider lidocaine patch [id number] for any increased pain. Regarding blood pressure medications lisinopril stopped at this time due to softer blood pressures. We will decrease dose of metoprolol at this time. During her stay she did have some noted bigeminy and/or PACs on telemetry. This was unable to be captured on EKG. Echo was obtained which shows left ventricular ejection fraction 60 to 65%. Normal left ventricular systolic function. Mild left to left ventricular hypertrophy noted. Pseudonormal grade 2 pattern LV diastolic filling. Normal right ventricular size wall thickness and systolic function. Severely dilated left atrium mildly dilated right atrium. Mild aortic valve sclerosis without stenosis moderate mitral valve regurgitation mild tricuspid valve regurgitation, right ventricular systolic pressure borderline at 29.8 mmHg no regional wall abnormalities noted. We will arrange outpatient follow-up with Dr. Winter, cardiology to further evaluate. Patient was asymptomatic with any events on telemetry. Patient and family updated. She will be discharged home today continue medications as state above. She is to follow-up with PCP and 1 to 2 weeks. Return to ER clinic concerns should arise. - Patient Instructions Diet: Regular Diet as Tolerated (avoid acidic foods.) Activity: As Tolerated Showering/Bathing: May Shower Notify Provider of: Fever, Increased Pain, Swelling and Redness, Drainage, Nausea and/or Vomiting Other/Special Instructions: Do not take NSAIDs. This includes Advil, ibuprofen, Motrin, Aleve, aspirin due to gastric ulcer. Okay to take Tylenol as needed for pain. Could trial Lidocaine patch OTC for back pain - Discharge Plan *PRESCRIPTION DRUG MONITORING PROGRAM REVIEWED*: Not Applicable *COPY OF PRESCRIPTION DRUG MONITORING REPORT IN PATIENT SHRADDHA: Not Applicable Prescriptions/Med Rec: Sucralfate [Carafate] 1 gm PO QIDACANDBED #120 tab Alum Hydrox/Mag Hydrox/Simeth [Mag-Al Plus] 30 ml PO Q6H PRN #1 bottle PRN Reason: Indigestion Pantoprazole Sodium [Protonix] 40 mg PO BIDMEALS #60 tablet. Metoprolol Succinate [Toprol XL] 12.5 mg PO DAILY #15 tab.er Home Medications: Home Meds Diclofenac Sodium 1 applic TOP QID PRN 02/02/21 [History] Fluticasone Propionate [Flonase] 2 spray NASBOTH DAILY 02/02/21 [History] Alum Hydrox/Mag Hydrox/Simeth [Mag-Al Plus] 30 ml PO Q6H PRN #1 bottle 02/04/21 [Rx] Metoprolol Succinate [Toprol XL] 12.5 mg PO DAILY #15 tab.er 02/04/21 [Rx] Pantoprazole Sodium [Protonix] 40 mg PO BIDMEALS #60 tablet. 02/04/21 [Rx] Sucralfate [Carafate] 1 gm PO QIDACANDBED #120 tab 02/04/21 [Rx] Oxygen Therapy Mode: Room Air Patient Handouts: Metoprolol tablets, Upper Gastrointestinal Bleeding, Peptic Ulcer, Hpen-cp-Aety, Sucralfate tablets, Pantoprazole tablets, Aluminum Hydroxide; Magnesium Carbonate oral suspension Referrals: Edgar Obregon MD [Physician] - 02/10/21 10:45 am Reid Reyes MD [Physician] - 03/10/21 1:30 pm Eliz Alvarez MD [Resident] - 02/14/21 9:30 am - Discharge Summary/Plan Comment DC Time >30 min.: No - Patient Data Vitals - Most Recent: Last Vital Signs Temp 97.9 F 02/04/21 11:09 Pulse 78 02/04/21 11:09 Resp 18 02/04/21 11:09 BP 120/50 L 02/04/21 11:09 Pulse Ox 94 L 02/04/21 11:09 Weight - Most Recent: 63.321 kg I&O - Last 24 hours: Intake & Output 02/03/21 02/04/21 02/04/21 22:59 06:59 14:59 Intake Total 1510 Output Total 1150 1200 Balance 360 -1200 Lab Results - Last 24 hrs: Laboratory Results - last 24 hr 02/04/21 02/04/21 Range/Units 05:55 05:55 WBC 5.38 (4.0-11.0) K/uL RBC 3.09 L (4.30-5.90) M/uL Hgb 10.1 L (12.0-16.0) g/dL Hct 29.3 L (36.0-46.0) % MCV 94.8 (80.0-98.0) fL MCH 32.7 H (27.0-32.0) pg MCHC 34.5 (31.0-37.0) g/dL RDW Std Deviation 55.9 (28.0-62.0) fl RDW Coeff of Marimar 16 H (11.0-15.0) % Plt Count 309 (150-400) K/uL MPV 9.90 (7.40-12.00) fL Neut % (Auto) 45.5 L (48.0-80.0) % Lymph % (Auto) 39.0 (16.0-40.0) % [place] % (Auto) 10.8 (0.0-15.0) % Eos % (Auto) 4.5 (0.0-7.0) % Baso % (Auto) 0.2 (0.0-1.5) % Neut # (Auto) 2.5 (1.4-5.7) K/uL Lymph # (Auto) 2.1 (0.6-2.4) K/uL [place] # (Auto) 0.6 (0.0-0.8) K/uL Eos # (Auto) 0.2 (0.0-0.7) K/uL Baso # (Auto) 0.0 (0.0-0.1) K/uL Nucleated RBC % 0.0 /100WBC Nucleated RBCs # 0 K/uL Sodium 140 (136-145) mmol/L Potassium 3.6 (3.5-5.1) mmol/L Chloride 106 (98-107) mmol/L Carbon Dioxide 25.4 (21.0-32.0) mmol/L BUN 8 (7.0-18.0) mg/dL Creatinine 0.5 L (0.6-1.0) mg/dL Est Cr Clr Drug Dosing 75.16 mL/min Estimated GFR (MDRD) > 60.0 ml/min Glucose 88 (74-106) mg/dL Calcium 7.8 L (8.5-10.1) mg/dL Magnesium 2.0 (1.8-2.4) mg/dL Med Orders - Current: Current Medications Acetaminophen (Acetaminophen 325 Mg Tab) 650 mg PO Q4H PRN PRN Reason: Pain (Mild 1-3)/fever Last Admin: 02/04/21 00:06 Dose: 650 mg Documented by: Al Hydroxide/Mg Hydroxide (Aluminum Hydroxide/Magnesium Hydroxide/Simethicone Susp 30 Ml Cup) 30 ml PO Q6H PRN PRN Reason: Indigestion Pantoprazole Sodium 40 mg/ (Sodium Chloride) 10 mls @ 300 mls/hr IV Q12HR [facility] Last Admin: 02/04/21 09:03 Dose: 300 mls/hr Documented by: Ondansetron HCl (Ondansetron 4 Mg/2 Ml Sdv) 4 mg IVPUSH Q4H PRN PRN Reason: Nausea Sodium Chloride (Sodium Chloride 0.9% 2.5 Ml Syringe) 2.5 ml FLUSH ASDIRECTED PRN PRN Reason: Keep Vein Open Sodium Phosphate (Phosphorus #1 250 Mg Tab) 250 mg PO QID [facility] Last Admin: 02/04/21 11:17 Dose: 250 mg Documented by: Sucralfate (Sucralfate Suspension 1 Gm/10 Ml Cup) 1 gm PO QIDACANDBED [facility] Last Admin: 02/04/21 11:17 Dose: 1 gm Documented by: Discontinued Medications Fentanyl (Fentanyl 100 Mcg/2 Ml Sdv) Confirm Administered Dose 100 mcg .ROUTE .STK-MED ONE Stop: 02/03/21 07:01 Sodium Chloride (Normal Saline) 1,000 mls @ 999 mls/hr IV .BOLUS ONE Stop: 02/01/21 12:45 Last Admin: 02/01/21 11:48 Dose: 999 mls/hr Documented by: Lactated Ringer's (Ringers, Lactated) 1,000 mls @ 150 mls/hr IV ASDIRECTED [facility] Last Admin: 02/02/21 03:01 Dose: 150 mls/hr Documented by: Pantoprazole Sodium 80 mg/ (Sodium Chloride) 20 mls @ 420 mls/hr IVPUSH ONETIME ONE Stop: 02/01/21 14:44 Last Admin: 02/01/21 16:00 Dose: 420 mls/hr Documented by: Sodium Chloride (Normal Saline) Confirm Administered Dose 20 mls @ as directed .ROUTE .STK-MED ONE Stop: 02/01/21 16:03 Last Admin: 02/01/21 16:06 Dose: Not Given Documented by: Magnesium Sulfate 2 gm/ Premix 50 mls @ 12.5 mls/hr IV ONETIME ONE Stop: 02/01/21 20:47 Last Admin: 02/02/21 02:58 Dose: Not Given Documented by: Lactated Ringer's (Ringers, Lactated) 1,000 mls @ 999 mls/hr IV .BOLUS ONE Stop: 02/01/21 21:52 Last Admin: 02/01/21 22:19 Dose: 999 mls/hr Documented by: Magnesium Sulfate 2 gm/ Premix 50 mls @ 12.5 mls/hr IV ONETIME ONE Stop: 02/02/21 06:29 Last Admin: 02/02/21 02:57 Dose: 12.5 mls/hr Documented by: Lactated Ringer's (Ringers, Lactated) 1,000 mls @ 125 mls/hr IV ASDIRECTED [facility] Last Admin: 02/03/21 05:52 Dose: 100 mls/hr Documented by: Lactated Ringer's (Ringers, Lactated) 1,000 mls @ 125 mls/hr IV Q8H CARLY Last Admin: 02/03/21 08:15 Dose: 125 mls/hr Documented by: Lidocaine (Lidocaine 2% 5 Ml Sdv) Confirm Administered Dose 5 ml .ROUTE .STK-MED ONE Stop: 02/03/21 07:01 Ondansetron HCl (Ondansetron 4 Mg/2 Ml Sdv) Confirm Administered Dose 4 mg .ROUTE [employer]MED ONE Stop: 02/03/21 07:01 Pantoprazole Sodium (Pantoprazole 40 Mg Vial) Confirm Administered Dose 80 mg .ROUTE .[employer]MED ONE Stop: 02/01/21 16:00 Last Admin: 02/01/21 16:03 Dose: Not Given Documented by: Propofol (Propofol 200 Mg/20 Ml Sdv) Confirm Administered Dose 200 mg .ROUTE .[place] ONE Stop: 02/03/21 07:01 - Exam General: Reports: Alert, Oriented, Cooperative, No Acute Distress Lungs: Reports: Clear to Auscultation, Normal Respiratory Effort Cardiovascular: Reports: Regular Rate, Regular Rhythm GI/Abdominal Exam: Normal Bowel Sounds, Soft, Non-Tender Extremities: Normal Inspection, Normal Range of Motion Neurological: Reports: No New Focal Deficit Psy/Mental Status: Reports: Alert, Normal Affect, Normal Mood
[2021-02-04 14:09] VITALS: BP 118/68; PULSE 68
--- NOTE | 2021-02-07 16:19 | ECHO ---
The echocardiogram report can be seen in this patient's EMR (Electronic Medical Record) in the Reports section. The report has also been scanned into PACS. [facility]
== END 2021-02-04 12:20 | disposition home health service (06) | DRG 811 ==
LOC: MW.ED 11:25 → MW.MS 15:07
PROVIDERS: ADMIT Student in an Organized Health Care Education/Training Program; ATTEND Student in an Organized Health Care Education/Training Program
PROC: 30233N1 Transfusion of Nonautologous Red Blood Cells into Peripheral Vein, Percutaneous Approach (ICD-10-PCS; principal; 2021-02-02)
PROC: 0DB78ZX Excision of Stomach, Pylorus, Via Natural or Artificial Opening Endoscopic, Diagnostic (ICD-10-PCS; 2021-02-03)
DX: D50.0 Iron deficiency anemia secondary to blood loss (chronic) (principal); K25.4 Chronic or unspecified gastric ulcer with hemorrhage; D64.9 Anemia, unspecified; K92.2 Gastrointestinal hemorrhage, unspecified; I49.8 Other specified cardiac arrhythmias; I48.0 Paroxysmal atrial fibrillation; H54.7 Unspecified visual loss; K57.90 Diverticulosis of intestine, part unspecified, without perforation or abscess without bleeding; R09.02 Hypoxemia; I95.9 Hypotension, unspecified; I10 Essential (primary) hypertension; M19.90 Unspecified osteoarthritis, unspecified site; M81.0 Age-related osteoporosis without current pathological fracture; E11.9 Type 2 diabetes mellitus without complications; Z79.899 Other long term (current) drug therapy; Z98.49 Cataract extraction status, unspecified eye; Z86.010 Personal history of colon polyps; Z87.440 Personal history of urinary (tract) infections; Z90.49 Acquired absence of other specified parts of digestive tract; Z79.1 Long term (current) use of non-steroidal anti-inflammatories (NSAID); Z20.822 Contact with and (suspected) exposure to COVID-19
CPT/HCPCS: 36415; 71046; 80053; 82247; 82248; 82550; 82607; 82728; 82746; 83550; 83605; 83615; 83690; 83735; 84100; 84484; 85025; 85045; 86850; 86900; 86901; 86920 ×2; 86921 ×2; 86922 ×2; 88104; 88305; 99285; J7030; J7120; U0002; 00731; 36430; 80048; 83010; 85014; 85018; 93005; 93306; 99100; 99222; 99233; 99238; 99291; A9270-GY; C9113; J2405; J2704; J3010; J3475; P9016

== ENCOUNTER 2022-03-13 13:52 | Emergency (ER) | payer MEDICARE, OTHER ==
[2022-03-13] MEDS ORDERED: Sodium Chloride 0.9% 2.5 ML Syringe FLUSH PRN (16:23)
[2022-03-13] MEDS ORDERED: Sodium Chloride 0.9% 10 ML Syringe FLUSH PRN (16:23)
[2022-03-13] MEDS ORDERED: Acetaminophen/HYDROcodone 325-5 MG Tab PO ONE (16:24)
[2022-03-13 17:13] LABS: CARBON DIOXIDE,CO2 26.9 mmol/L (21.0-32.0); POTASSIUM,K 4.3 mmol/L (3.5-5.1)
[2022-03-13 19:53] VITALS: BP 151/58; PULSE 67
== END 2022-03-13 19:48 | disposition home or self-care (01) ==
LOC: MW.ED 13:52
DX: R10.32 Left lower quadrant pain (principal); I10 Essential (primary) hypertension; E11.9 Type 2 diabetes mellitus without complications; Z79.899 Other long term (current) drug therapy; Z20.822 Contact with and (suspected) exposure to COVID-19
CPT/HCPCS: 36415; 71045; 74177; 80053; 81001; 83690; 85025; 85379; 85610; 93005; 99285; A9270; J3490; U0002; 99284

== ENCOUNTER 2022-03-20 11:03 | Day surgery (SDC) | payer MEDICARE, OTHER ==
[~2022-03-20 11:03] MED LIST changes: +Propofol 200 MG/20 ML SDV ONE; -Sodium Chloride 0.9% 10 ML SDV IV PRN; -Sodium Chloride 0.9% 10 ML Syringe FLUSH PRN; -Sodium Chloride 0.9% 2.5 ML Syringe FLUSH PRN; +fentaNYL 100 MCG/2 ML SDV ONE
[2022-03-20 11:42] VITALS: BP 155/81; PULSE 83
[2022-03-20] MEDS ORDERED: Lactated Ringers 1,000 ML IV SCH (14:00)
== END 2022-03-20 14:35 | disposition home or self-care (01) ==
LOC: MW.SDS 11:03
PROVIDERS: ATTEND Surgery
DX: K31.89 Other diseases of stomach and duodenum (principal); K29.30 Chronic superficial gastritis without bleeding; K44.9 Diaphragmatic hernia without obstruction or gangrene; J30.9 Allergic rhinitis, unspecified; I10 Essential (primary) hypertension; E11.9 Type 2 diabetes mellitus without complications; E87.6 Hypokalemia; M81.0 Age-related osteoporosis without current pathological fracture; D53.9 Nutritional anemia, unspecified; E55.9 Vitamin D deficiency, unspecified; Z79.899 Other long term (current) drug therapy; Z79.1 Long term (current) use of non-steroidal anti-inflammatories (NSAID); Z90.49 Acquired absence of other specified parts of digestive tract; Z98.890 Other specified postprocedural states; Z87.81 Personal history of (healed) traumatic fracture
CPT/HCPCS: 43239; 82947; J2704; J7120; 00731; 99100; J3010

== ENCOUNTER 2022-06-18 19:51 | Emergency (ER) | payer MEDICARE, OTHER ==
[2022-06-18] MEDS ORDERED: Ondansetron 4 MG/2 ML SDV IVPUSH ONE (20:51)
[2022-06-18] MEDS ORDERED: Sodium Chloride 0.9% 1,000 ML IV ONE (20:51)
[2022-06-18 21:43] LABS: CARBON DIOXIDE,CO2 22.3 mmol/L (21.0-32.0); POTASSIUM,K 4.3 mmol/L (3.5-5.1)
[2022-06-18 23:39] VITALS: BP 125/55; PULSE 96
== END 2022-06-18 23:37 | disposition home or self-care (01) ==
LOC: MW.ED 19:51
DX: R11.0 Nausea (principal); I10 Essential (primary) hypertension; E11.9 Type 2 diabetes mellitus without complications
CPT/HCPCS: 36415; 74176; 80053; 82150; 83690; 85025; 96361; 96374; 99284; J2405; J7030

== ENCOUNTER 2023-04-07 14:19 | Inpatient (IN) | payer MEDICARE, OTHER ==
[2023-04-07] MEDS ORDERED: Sodium Chloride 0.9% 10 ML Syringe FLUSH PRN ×2 (14:23→19:13)
[2023-04-07] MEDS ORDERED: Naloxone 0.4 MG/ML SDV IVPUSH PRN ×2 (14:23→16:35)
[2023-04-07] MEDS ORDERED: Ondansetron 4 MG/2 ML SDV IVPUSH ONE (14:23)
[2023-04-07] MEDS ORDERED: Sodium Chloride 0.9% 2.5 ML Syringe FLUSH PRN ×2 (14:23→19:13)
[2023-04-07] MEDS ORDERED: fentaNYL 50 MCG/ML SDV IVPUSH ONE (14:23)
[2023-04-07 14:37] LABS: HEMATOCRIT 32.7 % (36.0-46.0); HEMOGLOBIN 10.9 g/dL (12.0-16.0); MEAN CORPUSCULAR HEMOGLOBIN 35.2 pg (27.0-32.0); MEAN CORPUSCULAR HGB CONC 33.3 g/dL (31.0-37.0); MEAN CORPUSCULAR VOLUME 105.5 fL (80.0-98.0); PLATELET COUNT,PLT 120 K/uL (150-400); WHITE BLOOD CELL COUNT,WBC 18.12 K/uL (4.0-11.0)
[2023-04-07 14:50] LABS: INR 1.19 (0.86-1.11)
[2023-04-07 14:54] LABS: BAND ABSOLUTE MAN 3.6; BAND PERCENT MAN 20 %; LYMPHOCYTES ABSOLUTE MAN 2.4 (0.6-2.4); LYMPHOCYTES PERCENT MAN 13 % (16.0-40.0); SEG NEUTROPHILS ABSOLUTE MAN 11.8 (1.4-5.7); SEG NEUTROPHILS PERCENT MAN 65 % (48.0-80.0)
[2023-04-07 14:55] LABS: MONOCYTES ABSOLUTE MAN 0.4 (0.0-0.8); MONOCYTES PERCENT MAN 2 % (0.0-15.0)
[2023-04-07 15:18] LABS: A/G RATIO 1.4 (0.9-1.6); ALBUMIN 3.9 g/dL (3.4-5.0); BILIRUBIN TOTAL 0.8 mg/dL (0.2-1.0); CALCIUM 9.1 mg/dL (8.5-10.1); CARBON DIOXIDE,CO2 24.3 mmol/L (21.0-32.0); CREATININE 0.8 mg/dL (0.6-1.0); EST CRCL DRUG DOSING (CG) 40.66 mL/min; POTASSIUM,K 4.1 mmol/L (3.5-5.1); PROTEIN TOTAL,TP 6.6 g/dL (6.4-8.2)
[2023-04-07] MEDS ORDERED: Iopamidol 755 MG/ML 500 ML Multipack Bottle IVPUSH STA (16:02)
[2023-04-07] MEDS ORDERED: Morphine 2 MG/ML SYRINGE IVPUSH ONE ×2 (16:06→16:35)
[2023-04-07] MEDS ORDERED: Albuterol/Ipratropium 3.0-0.5 MG/3 ML Neb Soln NEB PRN (19:13)
[2023-04-07] MEDS ORDERED: Acetaminophen 325 MG Tab PO PRN (19:13)
[2023-04-07] MEDS ORDERED: Sodium Chloride 0.9% 20 ML SDV IV PRN (19:13)
[2023-04-07] MEDS ORDERED: Ondansetron 4 MG/2 ML SDV IVPUSH PRN (19:13)
[2023-04-07] MEDS ORDERED: Ropivacaine 0.5% 5 MG/ML 30 ML SDV ONE (20:08)
[2023-04-07] MEDS ORDERED: EPINEPHrine 1 MG/1 ML Amp ONE (20:09)
[2023-04-07] MEDS ORDERED: Lidocaine 1% 5 ML VIAL ONE (20:17)
[2023-04-07] MEDS ORDERED: Lidocaine 1% 5 ML VIAL INJECT ONE (20:26)
[2023-04-07] MEDS: Pantoprazole 40 MG in Sodium Chloride 0.9% 10 ML IVPUSH SCH (20:29)
[2023-04-07] MEDS: Morphine 2 MG/ML SYRINGE IVPUSH PRN (21:45)
[2023-04-08] MEDS: Morphine 2 MG/ML SYRINGE IVPUSH PRN ×3 (02:19→10:27)
[2023-04-08 06:11] LABS: BASOPHILS PERCENT AUTO 0.2 % (0.0-1.5); HEMATOCRIT 30.4 % (36.0-46.0); HEMOGLOBIN 10.3 g/dL (12.0-16.0); LYMPHOCYTES PERCENT AUTO 8.2 % (16.0-40.0); MEAN CORPUSCULAR HEMOGLOBIN 35.6 pg (27.0-32.0); MEAN CORPUSCULAR HGB CONC 33.9 g/dL (31.0-37.0); MEAN CORPUSCULAR VOLUME 105.2 fL (80.0-98.0); MONOCYTES ABSOLUTE AUTO 0.9 K/uL (0.0-0.8); MONOCYTES PERCENT AUTO 7.4 % (0.0-15.0); NEUTROPHILS ABSOLUTE AUTO 9.9 K/uL (1.4-5.7); NEUTROPHILS PERCENT AUTO 84.2 % (48.0-80.0); PLATELET COUNT,PLT 337 K/uL (150-400); RED BLOOD CELL COUNT 2.89 M/uL (4.30-5.90); WHITE BLOOD CELL COUNT,WBC 11.76 K/uL (4.0-11.0)
[2023-04-08 06:17] LABS: CALCIUM 8.5 mg/dL (8.5-10.1); CARBON DIOXIDE,CO2 24.7 mmol/L (21.0-32.0); CREATININE 0.7 mg/dL (0.6-1.0); EST CRCL DRUG DOSING (CG) 46.47 mL/min; MAGNESIUM 1.9 mg/dL (1.8-2.4); PHOSPHORUS 3.1 mg/dL (2.6-4.7)
[2023-04-08] MEDS: ceFAZolin 2 GM in Sodium Chloride 0.9% 50 ML IV SCH (07:30)
[2023-04-08] MEDS ORDERED: Dexmedetomidine 200 MCG/2 ML SDV ONE (09:39)
[2023-04-08] MEDS ORDERED: Lidocaine 1% 5 ML VIAL ONE (09:40)
[2023-04-08] MEDS ORDERED: Ketamine 500 mg/10 ML MDV ONE (09:40)
[2023-04-08] MEDS ORDERED: Rocuronium Bromide 50 MG/5 ML Syringe ONE (09:40)
[2023-04-08] MEDS ORDERED: Propofol 200 MG/20 ML SDV ONE (09:40)
[2023-04-08] MEDS ORDERED: fentaNYL 100 MCG/2 ML SDV ONE (09:40)
[2023-04-08] MEDS ORDERED: Magnesium Sulfate (4.06 MEQ/ML) 5 GM/10 ML SDV ONE (09:41)
[2023-04-08] MEDS ORDERED: Water For Injection, Sterile 20 ML ONE (09:41)
[2023-04-08 11:18] LABS: PERCENT FE SATURATION 12.32 % (20-55)
[2023-04-08] MEDS ORDERED: Phenylephrine HCl 0.5 MG/5 ML AMP ONE (11:19)
[2023-04-08] MEDS ORDERED: ceFAZolin 2 GM Vial ONE (11:23)
[2023-04-08] MEDS ORDERED: Phenylephrine 1% 10 MG/ML SDV ONE (11:26)
[2023-04-08] MEDS ORDERED: Dexamethasone 4 MG/ML 5 ML MDV ONE (11:39)
[2023-04-08] MEDS ORDERED: Sugammadex Sodium 200 MG/2 ML VIAL ONE (12:37)
[2023-04-08] MEDS ORDERED: HYDROmorphone 1 MG/ML Syringe IVPUSH PRN (13:15)
[2023-04-08] MEDS: traMADol 50 MG Tab PO PRN (16:51)
[2023-04-08] MEDS: Acetaminophen 325 MG Tab PO SCH ×2 (16:53→21:56)
[2023-04-08] MEDS: Pantoprazole 40 MG in Sodium Chloride 0.9% 10 ML IVPUSH SCH (19:00)
[2023-04-08] MEDS: Docusate Sodium 100 MG Cap PO SCH (21:58)
[2023-04-08] MEDS: oxyCODONE 5 MG Tab PO PRN (23:24)
[2023-04-09] MEDS: Acetaminophen 325 MG Tab PO SCH ×6 (00:39→20:18)
[2023-04-09] MEDS: ceFAZolin 2 GM in Sodium Chloride 0.9% 50 ML IV SCH ×3 (02:47→20:16)
[2023-04-09] MEDS: oxyCODONE 5 MG Tab PO PRN ×3 (02:47→22:04)
[2023-04-09 05:02] LABS: APPEARANCE,URINE CLEAR; BILIRUBIN,URINE NEGATIVE (NEGATIVE); COLOR,URINE YELLOW; GLUCOSE,URINE NEGATIVE (NEGATIVE); KETONES,URINE TRACE mg/dL (NEGATIVE); LEUKOCYTE ESTERASE,URINE TRACE (NEGATIVE); NITRITE,URINE NEGATIVE (NEGATIVE); OCCULT BLOOD,URINE NEGATIVE (NEGATIVE); PH,URINE 5.5 (5.0-8.0); PROTEIN,URINE NEGATIVE (NEGATIVE); UROBILINOGEN,URINE 0.2 EU/dL (<2.0)
[2023-04-09 05:22] LABS: BACTERIA,URINE FEW (NEGATIVE); EPITHELIAL CELLS,URINE FEW (NONE-FEW); RBC,URINE 0-2 (0-2/HPF)
[2023-04-09 06:23] LABS: HEMATOCRIT 25.2 % (36.0-46.0); HEMOGLOBIN 8.4 g/dL (12.0-16.0)
[2023-04-09] MEDS ORDERED: Fluticasone NASAL Spray 16 GM Bottle NASBOTH PRN (07:57)
[2023-04-09] MEDS ORDERED: Diltiazem 25 MG/5 ML SDV IVPUSH ONE (07:59)
[2023-04-09] MEDS ORDERED: Metoprolol Tartrate 25 MG Tab PO ONE (08:12)
[2023-04-09] MEDS ORDERED: Sodium Chloride 0.9% 250 ML IV SCH (08:30)
[2023-04-09] MEDS: Apixaban 2.5 MG Tab PO SCH ×2 (08:40→20:20)
[2023-04-09] MEDS: Docusate Sodium 100 MG Cap PO SCH ×2 (08:41→20:20)
[2023-04-09 08:58] LABS: CALCIUM 7.8 mg/dL (8.5-10.1); CARBON DIOXIDE,CO2 26.3 mmol/L (21.0-32.0); CREATININE 0.8 mg/dL (0.6-1.0); EST CRCL DRUG DOSING (CG) 40.66 mL/min; MAGNESIUM 2.7 mg/dL (1.8-2.4); POTASSIUM,K 4.5 mmol/L (3.5-5.1)
[2023-04-09] MEDS ORDERED: Non-Formulary Medication 1 Each (Pantoprazole Sodium 40 MG Tablet.Dr) PO SCH (09:00)
[2023-04-09] MEDS: Calcium Carbonate/Vitamin D3 1500 MG-400 Units Tab PO SCH (09:36)
[2023-04-09] MEDS: Iron Polysaccharides Complex 150 MG Cap PO SCH (09:36)
[2023-04-09] MEDS ORDERED: Metoprolol Tartrate 5 MG/5 ML SDV IVPUSH PRN (10:42)
[2023-04-09] MEDS ORDERED: Sodium Chloride 0.9% 500 ML IV SCH (13:15)
[2023-04-09 15:47] LABS: HEMATOCRIT 24.8 % (36.0-46.0); HEMOGLOBIN 8.2 g/dL (12.0-16.0)
[2023-04-09] MEDS: Pantoprazole 40 MG Tab.CR PO SCH (20:20)
[2023-04-09] MEDS: Metoprolol Succinate 25 MG Tab.ER PO SCH (20:56)
[2023-04-09 21:42] LABS: HEMATOCRIT 26.9 % (36.0-46.0)
[2023-04-10] MEDS: Acetaminophen 325 MG Tab PO SCH ×6 (02:04→21:06)
[2023-04-10] MEDS: oxyCODONE 5 MG Tab PO PRN ×3 (03:14→22:43)
[2023-04-10] MEDS: ceFAZolin 2 GM in Sodium Chloride 0.9% 50 ML IV SCH ×3 (03:16→18:23)
[2023-04-10 07:14] LABS: HEMATOCRIT 25.3 % (36.0-46.0); HEMOGLOBIN 8.4 g/dL (12.0-16.0)
[2023-04-10 07:22] LABS: CALCIUM 7.2 mg/dL (8.5-10.1); CARBON DIOXIDE,CO2 21.7 mmol/L (21.0-32.0); CREATININE 0.5 mg/dL (0.6-1.0); EST CRCL DRUG DOSING (CG) 65.06 mL/min; MAGNESIUM 2.2 mg/dL (1.8-2.4); POTASSIUM,K 3.9 mmol/L (3.5-5.1)
[2023-04-10] MEDS: Calcium Carbonate/Vitamin D3 1500 MG-400 Units Tab PO SCH (08:06)
[2023-04-10] MEDS: Docusate Sodium 100 MG Cap PO SCH ×2 (08:07→21:07)
[2023-04-10] MEDS: Iron Polysaccharides Complex 150 MG Cap PO SCH (08:08)
[2023-04-10] MEDS: Apixaban 2.5 MG Tab PO SCH ×2 (08:08→21:06)
[2023-04-10] MEDS: traMADol 50 MG Tab PO PRN (09:21)
[2023-04-10] MEDS: Metoprolol Succinate 25 MG Tab.ER PO SCH (21:07)
[2023-04-10] MEDS: Pantoprazole 40 MG Tab.CR PO SCH (21:07)
[2023-04-11] MEDS: Acetaminophen 325 MG Tab PO SCH ×3 (01:23→08:07)
[2023-04-11] MEDS: ceFAZolin 2 GM in Sodium Chloride 0.9% 50 ML IV SCH (03:16)
[2023-04-11 06:01] LABS: BASOPHILS PERCENT AUTO 0.2 % (0.0-1.5); EOSINOPHILS ABSOLUTE AUTO 0.1 K/uL (0.0-0.7); EOSINOPHILS PERCENT AUTO 0.8 % (0.0-7.0); HEMATOCRIT 25.4 % (36.0-46.0); HEMOGLOBIN 8.4 g/dL (12.0-16.0); LYMPHOCYTES ABSOLUTE AUTO 1.3 K/uL (0.6-2.4); LYMPHOCYTES PERCENT AUTO 19.7 % (16.0-40.0); MEAN CORPUSCULAR HEMOGLOBIN 33.2 pg (27.0-32.0); MEAN CORPUSCULAR HGB CONC 33.1 g/dL (31.0-37.0); MEAN CORPUSCULAR VOLUME 100.4 fL (80.0-98.0); MONOCYTES ABSOLUTE AUTO 0.6 K/uL (0.0-0.8); MONOCYTES PERCENT AUTO 8.7 % (0.0-15.0); NEUTROPHILS ABSOLUTE AUTO 4.5 K/uL (1.4-5.7); NEUTROPHILS PERCENT AUTO 70.6 % (48.0-80.0); NRBC ABSOLUTE 0 K/uL; NRBC PERCENT 0.6 /100WBC; PLATELET COUNT,PLT 337 K/uL (150-400); RED BLOOD CELL COUNT 2.53 M/uL (4.30-5.90); WHITE BLOOD CELL COUNT,WBC 6.41 K/uL (4.0-11.0)
[2023-04-11 06:16] LABS: CARBON DIOXIDE,CO2 25.1 mmol/L (21.0-32.0); CREATININE 0.7 mg/dL (0.6-1.0); EST CRCL DRUG DOSING (CG) 46.47 mL/min; POTASSIUM,K 3.8 mmol/L (3.5-5.1)
[2023-04-11] MEDS: Calcium Carbonate/Vitamin D3 1500 MG-400 Units Tab PO SCH (08:06)
[2023-04-11] MEDS: Docusate Sodium 100 MG Cap PO SCH ×2 (08:06→20:02)
[2023-04-11] MEDS: Apixaban 2.5 MG Tab PO SCH ×2 (08:07→20:03)
[2023-04-11] MEDS: Iron Polysaccharides Complex 150 MG Cap PO SCH (08:07)
[2023-04-11] MEDS ORDERED: Potassium Chloride 20 MEQ Tab.ER PO ONE (10:44)
[2023-04-11] MEDS: oxyCODONE 5 MG Tab PO PRN ×2 (11:31→20:04)
[2023-04-11] MEDS: Acetaminophen 500 MG Tab PO SCH (16:30)
[2023-04-11] MEDS: Metoprolol Succinate 25 MG Tab.ER PO SCH (20:02)
[2023-04-11] MEDS: Pantoprazole 40 MG Tab.CR PO SCH (20:03)
[2023-04-12] MEDS: Acetaminophen 500 MG Tab PO SCH ×3 (00:40→15:14)
[2023-04-12] MEDS: oxyCODONE 5 MG Tab PO PRN ×3 (03:21→17:43)
[2023-04-12 05:59] LABS: BASOPHILS PERCENT AUTO 0.1 % (0.0-1.5); EOSINOPHILS ABSOLUTE AUTO 0.1 K/uL (0.0-0.7); HEMATOCRIT 27.5 % (36.0-46.0); HEMOGLOBIN 9.1 g/dL (12.0-16.0); LYMPHOCYTES ABSOLUTE AUTO 1.4 K/uL (0.6-2.4); LYMPHOCYTES PERCENT AUTO 19.6 % (16.0-40.0); MEAN CORPUSCULAR HEMOGLOBIN 33.7 pg (27.0-32.0); MEAN CORPUSCULAR HGB CONC 33.1 g/dL (31.0-37.0); MEAN CORPUSCULAR VOLUME 101.9 fL (80.0-98.0); MONOCYTES ABSOLUTE AUTO 0.6 K/uL (0.0-0.8); NEUTROPHILS ABSOLUTE AUTO 5.1 K/uL (1.4-5.7); NEUTROPHILS PERCENT AUTO 71.3 % (48.0-80.0); NRBC ABSOLUTE 0 K/uL; NRBC PERCENT 0.8 /100WBC; PLATELET COUNT,PLT 345 K/uL (150-400); WHITE BLOOD CELL COUNT,WBC 7.13 K/uL (4.0-11.0)
[2023-04-12 06:19] LABS: CALCIUM 8.6 mg/dL (8.5-10.1); CARBON DIOXIDE,CO2 23.9 mmol/L (21.0-32.0); CREATININE 0.6 mg/dL (0.6-1.0); EST CRCL DRUG DOSING (CG) 54.22 mL/min; MAGNESIUM 1.9 mg/dL (1.8-2.4); POTASSIUM,K 4.7 mmol/L (3.5-5.1)
[2023-04-12] MEDS: Polyethylene Glycol 3350 Powder 17 GM Packet PO PRN (08:44)
[2023-04-12] MEDS: Iron Polysaccharides Complex 150 MG Cap PO SCH (08:46)
[2023-04-12] MEDS: Calcium Carbonate/Vitamin D3 1500 MG-400 Units Tab PO SCH (08:47)
[2023-04-12] MEDS: Docusate Sodium 100 MG Cap PO SCH ×2 (08:47→21:18)
[2023-04-12] MEDS: Apixaban 2.5 MG Tab PO SCH ×2 (08:48→21:18)
[2023-04-12] MEDS: Pantoprazole 40 MG Tab.CR PO SCH (21:18)
[2023-04-12] MEDS: Metoprolol Succinate 25 MG Tab.ER PO SCH (21:18)
[2023-04-13] MEDS: Acetaminophen 500 MG Tab PO SCH ×4 (00:05→23:48)
[2023-04-13] MEDS: oxyCODONE 5 MG Tab PO PRN ×4 (01:10→21:03)
[2023-04-13 06:12] LABS: BASOPHILS PERCENT AUTO 0.3 % (0.0-1.5); EOSINOPHILS ABSOLUTE AUTO 0.1 K/uL (0.0-0.7); EOSINOPHILS PERCENT AUTO 2.3 % (0.0-7.0); HEMATOCRIT 24.5 % (36.0-46.0); HEMOGLOBIN 8.2 g/dL (12.0-16.0); LYMPHOCYTES ABSOLUTE AUTO 1.5 K/uL (0.6-2.4); LYMPHOCYTES PERCENT AUTO 24.7 % (16.0-40.0); MEAN CORPUSCULAR HEMOGLOBIN 33.9 pg (27.0-32.0); MEAN CORPUSCULAR HGB CONC 33.5 g/dL (31.0-37.0); MEAN CORPUSCULAR VOLUME 101.2 fL (80.0-98.0); MONOCYTES ABSOLUTE AUTO 0.6 K/uL (0.0-0.8); NEUTROPHILS ABSOLUTE AUTO 3.8 K/uL (1.4-5.7); NEUTROPHILS PERCENT AUTO 62.7 % (48.0-80.0); NRBC ABSOLUTE 0 K/uL; NRBC PERCENT 0.9 /100WBC; PLATELET COUNT,PLT 352 K/uL (150-400); RED BLOOD CELL COUNT 2.42 M/uL (4.30-5.90)
[2023-04-13 06:27] LABS: CALCIUM 8.6 mg/dL (8.5-10.1); CARBON DIOXIDE,CO2 26.3 mmol/L (21.0-32.0); CREATININE 0.5 mg/dL (0.6-1.0); EST CRCL DRUG DOSING (CG) 65.06 mL/min; MAGNESIUM 1.6 mg/dL (1.8-2.4); POTASSIUM,K 4.4 mmol/L (3.5-5.1)
[2023-04-13] MEDS: Docusate Sodium 100 MG Cap PO SCH ×2 (08:08→21:04)
[2023-04-13] MEDS: Calcium Carbonate/Vitamin D3 1500 MG-400 Units Tab PO SCH (08:08)
[2023-04-13] MEDS: Apixaban 2.5 MG Tab PO SCH ×2 (08:08→21:04)
[2023-04-13] MEDS: Iron Polysaccharides Complex 150 MG Cap PO SCH (08:08)
[2023-04-13] MEDS ORDERED: Magnesium Sulfate/Water 2 GM in Premix Bag 1 BAG IV ONE (13:57)
[2023-04-13] MEDS: Metoprolol Succinate 25 MG Tab.ER PO SCH (21:02)
[2023-04-13] MEDS: Pantoprazole 40 MG Tab.CR PO SCH (21:04)
[2023-04-14] MEDS: oxyCODONE 5 MG Tab PO PRN ×2 (04:22→11:26)
[2023-04-14 06:31] LABS: CALCIUM 8.3 mg/dL (8.5-10.1); CARBON DIOXIDE,CO2 27.1 mmol/L (21.0-32.0); CREATININE 0.6 mg/dL (0.6-1.0); EST CRCL DRUG DOSING (CG) 54.22 mL/min; MAGNESIUM 1.7 mg/dL (1.8-2.4); POTASSIUM,K 3.9 mmol/L (3.5-5.1)
[2023-04-14 06:46] LABS: BASOPHILS PERCENT AUTO 0.6 % (0.0-1.5); EOSINOPHILS ABSOLUTE AUTO 0.1 K/uL (0.0-0.7); EOSINOPHILS PERCENT AUTO 2.6 % (0.0-7.0); HEMATOCRIT 24.2 % (36.0-46.0); HEMOGLOBIN 8.1 g/dL (12.0-16.0); LYMPHOCYTES ABSOLUTE AUTO 1.2 K/uL (0.6-2.4); LYMPHOCYTES PERCENT AUTO 23.6 % (16.0-40.0); MEAN CORPUSCULAR HGB CONC 33.5 g/dL (31.0-37.0); MEAN CORPUSCULAR VOLUME 101.7 fL (80.0-98.0); MONOCYTES ABSOLUTE AUTO 0.6 K/uL (0.0-0.8); NEUTROPHILS ABSOLUTE AUTO 3.2 K/uL (1.4-5.7); NEUTROPHILS PERCENT AUTO 62.2 % (48.0-80.0); NRBC ABSOLUTE 0 K/uL; NRBC PERCENT 0.8 /100WBC; PLATELET COUNT,PLT 478 K/uL (150-400); RED BLOOD CELL COUNT 2.38 M/uL (4.30-5.90); WHITE BLOOD CELL COUNT,WBC 5.09 K/uL (4.0-11.0)
[2023-04-14] MEDS: Polyethylene Glycol 3350 Powder 17 GM Packet PO PRN (09:10)
[2023-04-14] MEDS: Docusate Sodium 100 MG Cap PO SCH ×2 (09:10→20:43)
[2023-04-14] MEDS: Iron Polysaccharides Complex 150 MG Cap PO SCH (09:10)
[2023-04-14] MEDS: Calcium Carbonate/Vitamin D3 1500 MG-400 Units Tab PO SCH (09:11)
[2023-04-14] MEDS: Apixaban 2.5 MG Tab PO SCH ×2 (09:11→20:43)
[2023-04-14] MEDS: Acetaminophen 500 MG Tab PO SCH ×2 (09:11→16:20)
[2023-04-14] MEDS: traMADol 50 MG Tab PO PRN (13:55)
[2023-04-14] MEDS: Metoprolol Succinate 25 MG Tab.ER PO SCH (20:40)
[2023-04-14] MEDS: Pantoprazole 40 MG Tab.CR PO SCH (20:43)
[2023-04-15] MEDS: Acetaminophen 500 MG Tab PO SCH ×4 (00:28→23:01)
[2023-04-15 08:03] LABS: BASOPHILS PERCENT AUTO 0.6 % (0.0-1.5); EOSINOPHILS ABSOLUTE AUTO 0.2 K/uL (0.0-0.7); EOSINOPHILS PERCENT AUTO 2.6 % (0.0-7.0); HEMATOCRIT 26.5 % (36.0-46.0); HEMOGLOBIN 8.6 g/dL (12.0-16.0); LYMPHOCYTES ABSOLUTE AUTO 1.7 K/uL (0.6-2.4); LYMPHOCYTES PERCENT AUTO 25.6 % (16.0-40.0); MEAN CORPUSCULAR HEMOGLOBIN 33.1 pg (27.0-32.0); MEAN CORPUSCULAR HGB CONC 32.5 g/dL (31.0-37.0); MEAN CORPUSCULAR VOLUME 101.9 fL (80.0-98.0); MONOCYTES ABSOLUTE AUTO 0.7 K/uL (0.0-0.8); NEUTROPHILS PERCENT AUTO 61.2 % (48.0-80.0); NRBC ABSOLUTE 0 K/uL; PLATELET COUNT,PLT 558 K/uL (150-400)
[2023-04-15 08:10] LABS: A/G RATIO 1.1 (0.9-1.6); ALBUMIN 2.7 g/dL (3.4-5.0); BILIRUBIN TOTAL 1.1 mg/dL (0.2-1.0); CALCIUM 8.4 mg/dL (8.5-10.1); CREATININE 0.6 mg/dL (0.6-1.0); EST CRCL DRUG DOSING (CG) 54.22 mL/min; POTASSIUM,K 3.9 mmol/L (3.5-5.1); PROTEIN TOTAL,TP 5.2 g/dL (6.4-8.2)
[2023-04-15] MEDS: Calcium Carbonate/Vitamin D3 1500 MG-400 Units Tab PO SCH (08:36)
[2023-04-15] MEDS: Apixaban 2.5 MG Tab PO SCH ×2 (08:36→20:17)
[2023-04-15] MEDS: Docusate Sodium 100 MG Cap PO SCH ×2 (08:36→20:15)
[2023-04-15] MEDS: Iron Polysaccharides Complex 150 MG Cap PO SCH (08:36)
[2023-04-15] MEDS: Polyethylene Glycol 3350 Powder 17 GM Packet PO PRN (08:39)
[2023-04-15] MEDS: traMADol 50 MG Tab PO PRN (18:12)
[2023-04-15] MEDS: Metoprolol Succinate 25 MG Tab.ER PO SCH (20:15)
[2023-04-15] MEDS: Pantoprazole 40 MG Tab.CR PO SCH (20:15)
[2023-04-16] MEDS: Acetaminophen 500 MG Tab PO SCH (09:26)
[2023-04-16] MEDS: Iron Polysaccharides Complex 150 MG Cap PO SCH (09:27)
[2023-04-16] MEDS: Calcium Carbonate/Vitamin D3 1500 MG-400 Units Tab PO SCH (09:27)
[2023-04-16] MEDS: Docusate Sodium 100 MG Cap PO SCH (09:27)
[2023-04-16] MEDS: Apixaban 2.5 MG Tab PO SCH (09:28)
[2023-04-16 10:28] VITALS: BP 105/57; PULSE 85
== END 2023-04-16 11:30 | DRG 481 ==
LOC: MW.ED 14:19 → MW.MS 17:45
PROVIDERS: ADMIT Family Medicine; ATTEND Family Medicine
PROC: 0QS606Z Reposition Right Upper Femur with Intramedullary Internal Fixation Device, Open Approach (ICD-10-PCS; principal; 2023-04-08)
DX: M80.851A Other osteoporosis with current pathological fracture, right femur, initial encounter for fracture (principal); I48.19 Other persistent atrial fibrillation; J98.11 Atelectasis; S72.001A Fracture of unspecified part of neck of right femur, initial encounter for closed fracture; D50.0 Iron deficiency anemia secondary to blood loss (chronic); I48.91 Unspecified atrial fibrillation; R33.9 Retention of urine, unspecified; I95.9 Hypotension, unspecified; H91.90 Unspecified hearing loss, unspecified ear; K21.9 Gastro-esophageal reflux disease without esophagitis; E11.9 Type 2 diabetes mellitus without complications; M54.50 Low back pain, unspecified; G89.29 Other chronic pain; M19.90 Unspecified osteoarthritis, unspecified site; I10 Essential (primary) hypertension; Z90.49 Acquired absence of other specified parts of digestive tract; Z98.1 Arthrodesis status; Z98.890 Other specified postprocedural states; Y92.098 Other place in other non-institutional residence as the place of occurrence of the external cause; Z79.01 Long term (current) use of anticoagulants; Z86.010 Personal history of colon polyps; Z98.49 Cataract extraction status, unspecified eye; Z79.899 Other long term (current) drug therapy; Z96.642 Presence of left artificial hip joint; W01.0XXA Fall on same level from slipping, tripping and stumbling without subsequent striking against object, initial encounter
CPT/HCPCS: 36415; 70450; 71045; 71260; 72125; 72170; 74177; 80053; 82550; 83880; 84484; 85025; 85610; 85730; 86850; 86900; 86901; 86902 ×2; 86920; 86921; 86922; 93005; 96374; 96375; 99291; G0390; J2270 ×2; J2405; J3010; J3490; Q9967; 01230; 36430; 51701; 51702; 51798; 64450; 80048; 81001; 82607; 82746; 82747; 82947; 83550; 83735; 84100; 85014; 85018; 87086; 93010; 97110-GO; 97110-GP; 97116-GP; 97163-GP; 97165-GO; 99100; A9270-GY; C1713; C1769; C9113; J0131; J0171; J0690; J1100; J2370; J2371; J2704; J2795; J3475; J7040; J7050; P9016

== ENCOUNTER 2023-08-05 09:23 | Emergency (ER) | payer MEDICARE, OTHER ==
[2023-08-05] MEDS ORDERED: Ondansetron 4 MG/2 ML SDV IVPUSH ONE (10:32)
[2023-08-05] MEDS ORDERED: Sodium Chloride 0.9% 1,000 ML IV ONE (10:32)
[2023-08-05 11:08] LABS: BASOPHILS ABSOLUTE AUTO 0.02 K/uL (0.00-0.20); BASOPHILS PERCENT AUTO 0.4 % (0.0-1.0); HEMATOCRIT 32.2 % (37.0-47.0); HEMOGLOBIN 11.1 g/dL (12.0-16.0); IMMATURE GRAN ABSOLUTE AUTO 0.01 K/uL (0.00-0.05); IMMATURE GRAN PERCENT AUTO 0.2 % (0.0-0.4); LYMPHOCYTES ABSOLUTE AUTO 0.83 K/uL (1.00-4.80); LYMPHOCYTES PERCENT AUTO 15.6 % (24.0-44.0); MEAN CORPUSCULAR HEMOGLOBIN 36.4 pg (28.0-32.0); MEAN CORPUSCULAR HGB CONC 34.5 g/dL (32.0-36.0); MEAN CORPUSCULAR VOLUME 105.6 fL (83.0-99.0); MEAN PLATELET VOLUME 11.1 fL (9.4-12.3); MONOCYTES ABSOLUTE AUTO 0.37 K/uL (0.00-0.80); NEUTROPHILS ABSOLUTE AUTO 4.08 K/uL (1.80-7.70); NEUTROPHILS PERCENT AUTO 76.8 % (41.0-71.0); PLATELET COUNT,PLT 184 K/uL (150-400); RED BLOOD CELL COUNT 3.05 M/uL (4.10-5.30); WHITE BLOOD CELL COUNT,WBC 5.31 K/uL (3.9-11.3)
[2023-08-05 11:30] LABS: INR 1.25 (0.86-1.11)
[2023-08-05 11:36] LABS: A/G RATIO 1.3 (0.9-1.6); ALBUMIN 3.8 g/dL (3.4-5.0); CALCIUM 10.2 mg/dL (8.5-10.1); CARBON DIOXIDE,CO2 26.7 mmol/L (21.0-32.0); CREATININE 0.6 mg/dL (0.6-1.0); EST CRCL DRUG DOSING (CG) 53.98 mL/min; MAGNESIUM 1.9 mg/dL (1.8-2.4); POTASSIUM,K 4.1 mmol/L (3.5-5.1); PROTEIN TOTAL,TP 6.8 g/dL (6.4-8.2)
[2023-08-05 12:28] LABS: CORONAVIRUS COVID-19 NAA NEGATIVE (NEGATIVE); INFLUENZA A NAA NEGATIVE (NEGATIVE); INFLUENZA B NAA NEGATIVE (NEGATIVE); RESPIRATORY SYNCYTIAL VIR NAA NEGATIVE (NEGATIVE)
[2023-08-05 12:58] LABS: APPEARANCE,URINE SLT CLOUDY; BILIRUBIN,URINE NEGATIVE (NEGATIVE); COLOR,URINE YELLOW; GLUCOSE,URINE NEGATIVE (NEGATIVE); KETONES,URINE NEGATIVE (NEGATIVE); LEUKOCYTE ESTERASE,URINE SMALL (NEGATIVE); NITRITE,URINE NEGATIVE (NEGATIVE); OCCULT BLOOD,URINE NEGATIVE (NEGATIVE); PROTEIN,URINE NEGATIVE (NEGATIVE); UROBILINOGEN,URINE 0.2 EU/dL (<2.0)
[2023-08-05 13:08] LABS: AMORPHOUS SEDIMENT,URINE MODERATE (NEGATIVE); BACTERIA,URINE FEW (NEGATIVE); EPITHELIAL CELLS,URINE OCCASIONAL (NONE-FEW); RBC,URINE 0-2 (0-2/HPF)
[2023-08-05 14:36] VITALS: BP 125/76; PULSE 76
== END 2023-08-05 14:36 | disposition home or self-care (01) ==
LOC: MW.ED 09:23
DX: R53.83 Other fatigue (principal); K21.9 Gastro-esophageal reflux disease without esophagitis; E11.9 Type 2 diabetes mellitus without complications; Z90.49 Acquired absence of other specified parts of digestive tract; Z79.899 Other long term (current) drug therapy; Z20.822 Contact with and (suspected) exposure to COVID-19
CPT/HCPCS: 0241U; 36415; 71045; 80053; 81001; 83735; 84484; 85025; 85610; 85730; 87086; 93005; 96361; 96374; 99285; J2405; J7030; 93010; 99284

== ENCOUNTER 2023-08-17 07:14 | Observation (INO) | payer MEDICARE, OTHER ==
[2023-08-17] MEDS ORDERED: Meclizine 25 MG Tab PO ONE (07:31)
[2023-08-17] MEDS ORDERED: Sodium Chloride 0.9% 1,000 ML IV ONE (07:31)
[2023-08-17 07:59] LABS: BASOPHILS ABSOLUTE AUTO 0.03 K/uL (0.00-0.20); BASOPHILS PERCENT AUTO 0.5 % (0.0-1.0); EOSINOPHILS ABSOLUTE AUTO 0.02 K/uL (0.00-0.45); EOSINOPHILS PERCENT AUTO 0.3 % (0.0-6.0); HEMATOCRIT 30.4 % (37.0-47.0); HEMOGLOBIN 10.7 g/dL (12.0-16.0); IMMATURE GRAN ABSOLUTE AUTO 0.01 K/uL (0.00-0.05); IMMATURE GRAN PERCENT AUTO 0.2 % (0.0-0.4); LYMPHOCYTES ABSOLUTE AUTO 1.24 K/uL (1.00-4.80); LYMPHOCYTES PERCENT AUTO 20.3 % (24.0-44.0); MEAN CORPUSCULAR HEMOGLOBIN 36.9 pg (28.0-32.0); MEAN CORPUSCULAR HGB CONC 35.2 g/dL (32.0-36.0); MEAN CORPUSCULAR VOLUME 104.8 fL (83.0-99.0); MEAN PLATELET VOLUME 10.4 fL (9.4-12.3); MONOCYTES ABSOLUTE AUTO 0.53 K/uL (0.00-0.80); MONOCYTES PERCENT AUTO 8.7 % (0.0-8.0); NEUTROPHILS ABSOLUTE AUTO 4.28 K/uL (1.80-7.70); PLATELET COUNT,PLT 393 K/uL (150-400); WHITE BLOOD CELL COUNT,WBC 6.11 K/uL (3.9-11.3)
[2023-08-17 08:30] LABS: A/G RATIO 1.2 (0.9-1.6); ALBUMIN 3.5 g/dL (3.4-5.0); BILIRUBIN TOTAL 0.8 mg/dL (0.2-1.0); C-REACTIVE PROTEIN 0.8 mg/dL (<0.3); CALCIUM 9.9 mg/dL (8.5-10.1); CARBON DIOXIDE,CO2 27.4 mmol/L (21.0-32.0); CREATININE 0.7 mg/dL (0.6-1.0); EST CRCL DRUG DOSING (CG) 45.72 mL/min; MAGNESIUM 1.7 mg/dL (1.8-2.4); POTASSIUM,K 4.2 mmol/L (3.5-5.1); PROTEIN TOTAL,TP 6.4 g/dL (6.4-8.2); TSH ULTRASENSITIVE 0.74 uIU/mL (0.36-3.74)
[2023-08-17 08:36] LABS: CORONAVIRUS COVID-19 NAA NEGATIVE (NEGATIVE); INFLUENZA A NAA NEGATIVE (NEGATIVE); INFLUENZA B NAA NEGATIVE (NEGATIVE); RESPIRATORY SYNCYTIAL VIR NAA NEGATIVE (NEGATIVE)
[2023-08-17 09:23] LABS: APPEARANCE,URINE CLEAR; BILIRUBIN,URINE NEGATIVE (NEGATIVE); COLOR,URINE YELLOW; GLUCOSE,URINE NEGATIVE (NEGATIVE); KETONES,URINE NEGATIVE (NEGATIVE); LEUKOCYTE ESTERASE,URINE TRACE (NEGATIVE); NITRITE,URINE NEGATIVE (NEGATIVE); OCCULT BLOOD,URINE NEGATIVE (NEGATIVE); PROTEIN,URINE NEGATIVE (NEGATIVE); UROBILINOGEN,URINE 0.2 EU/dL (<2.0)
[2023-08-17 09:38] LABS: EPITHELIAL CELLS,URINE FEW (NONE-FEW); RBC,URINE 0-2 (0-2/HPF); WBC,URINE 0-5 (0-5/HPF)
[2023-08-17 09:39] LABS: BACTERIA,URINE FEW (NEGATIVE)
[2023-08-17] MEDS ORDERED: Acetaminophen 325 MG Tab PO PRN (11:33)
[2023-08-17] MEDS ORDERED: Ondansetron 4 MG/2 ML SDV IVPUSH PRN (11:33)
[2023-08-17] MEDS ORDERED: Apixaban 5 MG Tab PO SCH (11:45)
[2023-08-17 12:41] LABS: HEMOGLOBIN A1C 6.4 %
[2023-08-17] MEDS: Apixaban 2.5 MG Tab PO SCH ×2 (15:02→21:24)
[2023-08-17] MEDS ORDERED: Magnesium Sulfate/Water 2 GM in Premix Bag 1 BAG IV ONE (15:16)
[2023-08-17] MEDS ORDERED: Meclizine 25 MG Tab PO PRN (15:19)
[2023-08-17] MEDS: cefTRIAXone 1 GM in Sodium Chloride 0.9% 50 ML IV SCH (15:44)
[2023-08-17] MEDS ORDERED: Gadobenate Dimeglumine 529 MG/ML 20 ML SDV IVPUSH STA (19:55)
[2023-08-17] MEDS ORDERED: oxyCODONE 5 MG Tab PO PRN (20:56)
[2023-08-17] MEDS ORDERED: Potassium Chloride 10 MEQ Tab.ER PO SCH (21:00)
[2023-08-17] MEDS ORDERED: Cholecalciferol (Vitamin D3) 25 MCG Tab PO SCH (21:00)
[2023-08-17] MEDS ORDERED: Metoprolol Succinate 25 MG Tab.ER PO SCH (21:00)
[2023-08-18 07:24] LABS: HEMATOCRIT 28.5 % (37.0-47.0); HEMOGLOBIN 9.9 g/dL (12.0-16.0); MEAN CORPUSCULAR HEMOGLOBIN 36.8 pg (28.0-32.0); MEAN CORPUSCULAR HGB CONC 34.7 g/dL (32.0-36.0); MEAN CORPUSCULAR VOLUME 105.9 fL (83.0-99.0); MEAN PLATELET VOLUME 9.7 fL (9.4-12.3); PLATELET COUNT,PLT 422 K/uL (150-400); RED BLOOD CELL COUNT 2.69 M/uL (4.10-5.30); WHITE BLOOD CELL COUNT,WBC 6.91 K/uL (3.9-11.3)
[2023-08-18] MEDS ORDERED: 50% Dextrose in Water 50 ML Syringe IVPUSH PRN (07:45)
[2023-08-18] MEDS ORDERED: Glucagon,Human Recombinant 1 MG Vial IM PRN (07:45)
[2023-08-18 07:47] LABS: ALBUMIN 3.1 g/dL (3.4-5.0); BILIRUBIN TOTAL 0.7 mg/dL (0.2-1.0); CALCIUM 9.8 mg/dL (8.5-10.1); CARBON DIOXIDE,CO2 27.7 mmol/L (21.0-32.0); CREATININE 0.6 mg/dL (0.6-1.0); EST CRCL DRUG DOSING (CG) 53.34 mL/min; POTASSIUM,K 4.1 mmol/L (3.5-5.1); PROTEIN TOTAL,TP 5.8 g/dL (6.4-8.2)
[2023-08-18 07:50] LABS: A/G RATIO 1.2 (0.9-1.6)
[2023-08-18] MEDS: Apixaban 2.5 MG Tab PO SCH (08:31)
[2023-08-18] MEDS ORDERED: Insulin Aspart 100 Units/ML 3 ML Pen SUBCUT SCH (11:30)
[2023-08-18] MEDS: cefTRIAXone 1 GM in Sodium Chloride 0.9% 50 ML IV SCH (14:53)
[2023-08-18 16:31] VITALS: BP 145/69; PULSE 69
== END 2023-08-18 16:28 | disposition home or self-care (01) ==
LOC: MW.ED 07:14 → MW.MS 11:31
PROVIDERS: ADMIT Family Medicine; ATTEND Family Medicine
DX: N39.0 Urinary tract infection, site not specified (principal); G31.9 Degenerative disease of nervous system, unspecified; R53.1 Weakness; I10 Essential (primary) hypertension; I48.19 Other persistent atrial fibrillation; E11.9 Type 2 diabetes mellitus without complications; K21.9 Gastro-esophageal reflux disease without esophagitis; Z20.822 Contact with and (suspected) exposure to COVID-19; Z79.01 Long term (current) use of anticoagulants; Z79.899 Other long term (current) drug therapy
CPT/HCPCS: 0241U; 36415; 70450; 70544; 70549; 70553; 71045; 80053; 80061; 81001; 82607; 82947; 83036; 83735; 83880; 84443; 84484; 85025; 85027; 86140; 87086; 87088; 87186; 93005; 93306; 96361; 96365; 96366; 96368; 96376; 97110; 97161; 99285; A9270; A9577; G0378; J0696; J3475; J3490; J7030; 93010; 96360; 99283

== ENCOUNTER 2023-12-23 18:47 | Emergency (ER) | payer MEDICARE, OTHER ==
[2023-12-23 21:12] LABS: BASOPHILS ABSOLUTE AUTO 0.02 K/uL (0.00-0.20); BASOPHILS PERCENT AUTO 0.3 % (0.0-1.0); EOSINOPHILS ABSOLUTE AUTO 0.05 K/uL (0.00-0.45); EOSINOPHILS PERCENT AUTO 0.7 % (0.0-6.0); HEMATOCRIT 30.8 % (37.0-47.0); HEMOGLOBIN 10.8 g/dL (12.0-16.0); IMMATURE GRAN ABSOLUTE AUTO 0.01 K/uL (0.00-0.05); IMMATURE GRAN PERCENT AUTO 0.1 % (0.0-0.4); LYMPHOCYTES ABSOLUTE AUTO 3.22 K/uL (1.00-4.80); LYMPHOCYTES PERCENT AUTO 47.6 % (24.0-44.0); MEAN CORPUSCULAR HEMOGLOBIN 35.4 pg (28.0-32.0); MEAN CORPUSCULAR HGB CONC 35.1 g/dL (32.0-36.0); MEAN PLATELET VOLUME 11.5 fL (9.4-12.3); MONOCYTES PERCENT AUTO 7.4 % (0.0-8.0); NEUTROPHILS ABSOLUTE AUTO 2.96 K/uL (1.80-7.70); NEUTROPHILS PERCENT AUTO 43.9 % (41.0-71.0); PLATELET COUNT,PLT 255 K/uL (150-400); RED BLOOD CELL COUNT 3.05 M/uL (4.10-5.30); WHITE BLOOD CELL COUNT,WBC 6.76 K/uL (3.9-11.3)
[2023-12-23] MEDS: Sodium Chloride 0.9% 500 ML IV STA (21:30)
[2023-12-23 21:32] LABS: APPEARANCE,URINE SLT CLOUDY; BILIRUBIN,URINE NEGATIVE (NEGATIVE); COLOR,URINE YELLOW; GLUCOSE,URINE NEGATIVE (NEGATIVE); KETONES,URINE NEGATIVE (NEGATIVE); LEUKOCYTE ESTERASE,URINE MODERATE (NEGATIVE); NITRITE,URINE NEGATIVE (NEGATIVE); OCCULT BLOOD,URINE TRACE-INTACT (NEGATIVE); PROTEIN,URINE NEGATIVE (NEGATIVE); UROBILINOGEN,URINE 0.2 EU/dL (<2.0)
[2023-12-23 21:34] LABS: A/G RATIO 1.1 (0.9-1.6); ALBUMIN 3.5 g/dL (3.4-5.0); BILIRUBIN TOTAL 0.5 mg/dL (0.2-1.0); CALCIUM 9.1 mg/dL (8.5-10.1); CARBON DIOXIDE,CO2 25.5 mmol/L (21.0-32.0); CREATININE 0.7 mg/dL (0.6-1.0); EST CRCL DRUG DOSING (CG) 38.83 mL/min; PROTEIN TOTAL,TP 6.7 g/dL (6.4-8.2)
[2023-12-23 21:46] LABS: BACTERIA,URINE 1+ (NEGATIVE); MUCUS,URINE LIGHT (NONE-MOD); SQUAMOUS EPITHELIAL CELLS,UR MANY
[2023-12-23 22:18] VITALS: BP 140/98; PULSE 88
== END 2023-12-23 22:19 | disposition home or self-care (01) ==
LOC: MW.ED 18:47
DX: N39.0 Urinary tract infection, site not specified (principal); I10 Essential (primary) hypertension; K21.9 Gastro-esophageal reflux disease without esophagitis; E11.9 Type 2 diabetes mellitus without complications; Z79.899 Other long term (current) drug therapy; Z90.49 Acquired absence of other specified parts of digestive tract; Z75.8 Other problems related to medical facilities and other health care
CPT/HCPCS: 36415; 80053; 81001; 85025; 96360; 99284; J7040; 99282

== ENCOUNTER 2024-03-23 14:44 | Emergency (ER) | payer MEDICARE, OTHER ==
[2024-03-23 15:29] LABS: APPEARANCE,URINE SLT CLOUDY; BILIRUBIN,URINE NEGATIVE (NEGATIVE); COLOR,URINE YELLOW; GLUCOSE,URINE NEGATIVE (NEGATIVE); KETONES,URINE NEGATIVE (NEGATIVE); LEUKOCYTE ESTERASE,URINE SMALL (NEGATIVE); NITRITE,URINE NEGATIVE (NEGATIVE); OCCULT BLOOD,URINE SMALL (NEGATIVE); PROTEIN,URINE NEGATIVE (NEGATIVE); UROBILINOGEN,URINE 0.2 EU/dL (<2.0)
[2024-03-23 15:36] LABS: BACTERIA,URINE RARE (NEGATIVE); EPITHELIAL CELLS,URINE MANY (NONE-FEW)
[2024-03-23] MEDS: Nitrofurantoin Monohydrate/Macrocrystalline 100 MG Cap PO ONE (16:13)
[2024-03-23] MEDS: Phenazopyridine 200 MG Tab PO ONE (16:13)
[2024-03-23 16:38] VITALS: BP 131/64; PULSE 75
== END 2024-03-23 16:38 | disposition home or self-care (01) ==
LOC: MW.ED 14:44
DX: N39.0 Urinary tract infection, site not specified (principal); I10 Essential (primary) hypertension; I48.91 Unspecified atrial fibrillation; K21.9 Gastro-esophageal reflux disease without esophagitis; E11.9 Type 2 diabetes mellitus without complications; Z75.8 Other problems related to medical facilities and other health care; Z79.899 Other long term (current) drug therapy; Z79.01 Long term (current) use of anticoagulants
CPT/HCPCS: 81001; 87086; 99284; A9270

== ENCOUNTER 2024-08-21 19:36 | Emergency (ER) | payer MEDICARE, OTHER ==
[2024-08-21 21:37] VITALS: BP 140/82; PULSE 73
[2024-08-21 22:41] LABS: BILIRUBIN,URINE NEGATIVE (NEGATIVE); COLOR,URINE YELLOW; GLUCOSE,URINE NEGATIVE (NEGATIVE); KETONES,URINE NEGATIVE (NEGATIVE); LEUKOCYTE ESTERASE,URINE MODERATE (NEGATIVE); NITRITE,URINE NEGATIVE (NEGATIVE); OCCULT BLOOD,URINE TRACE-INTACT (NEGATIVE); PROTEIN,URINE NEGATIVE (NEGATIVE); UROBILINOGEN,URINE 0.2 EU/dL (<2.0)
[2024-08-21 22:42] LABS: APPEARANCE,URINE SLT CLOUDY
[2024-08-21 22:46] LABS: BACTERIA,URINE 1+ (NEGATIVE); MUCUS,URINE LIGHT (NONE-MOD); SQUAMOUS EPITHELIAL CELLS,UR MODERATE
[2024-08-21] MEDS: Amoxicillin/Clavulanate K 875-125 MG Tab PO ONE (22:59)
== END 2024-08-21 23:03 | disposition home or self-care (01) ==
LOC: MW.ED 19:36
DX: N39.0 Urinary tract infection, site not specified (principal); I10 Essential (primary) hypertension; I48.91 Unspecified atrial fibrillation; K21.9 Gastro-esophageal reflux disease without esophagitis; E11.9 Type 2 diabetes mellitus without complications; Z90.49 Acquired absence of other specified parts of digestive tract; Z79.899 Other long term (current) drug therapy; Z79.01 Long term (current) use of anticoagulants; Z75.8 Other problems related to medical facilities and other health care
CPT/HCPCS: 81001; 99283; A9270